=== PATIENT | female | born 1955 | race Caucasian/White ===

== ENCOUNTER → 2017-01-01 | Outpatient (CLI) | payer BC ==
[~2017-01-01] MED LIST: DEXAMETHASONE 4 MG/ML VIAL ONE; LIDOCAINE 2% 100 MG/5 ML SYR ONE; PROPOFOL/EMULSION 500 MG/50 ML BOTTLE IV ONE; fentaNYL 100 MCG/2 ML INJ ONE
== END ==
LOC: FIMAGING 08:33
DX: Z12.31 Encounter for screening mammogram for malignant neoplasm of breast (principal)
CPT/HCPCS: G0202; J1100; J2001; J2704; J3010

== ENCOUNTER 2017-11-18 11:19 | Emergency (ER) | payer BC ==
[2017-11-18 11:25] VITALS: TEMP 98.1
[2017-11-18] MEDS ORDERED: NS 1,000 ML IV ONE (11:31)
--- NOTE | 2017-11-18 11:32 | CPEKG ---
Heart Rate: 85 RR Interval: 706 P-R Interval: 168 QRSD Interval: 78 QT Interval: 376 QTC Interval: 447 P [place]: 76 QRS [place]: 21 T Wave [place]: 59 EKG Severity - BORDERLINE ECG - EKG Impression: SINUS RHYTHM EKG Impression: PROBABLE LEFT ATRIAL ABNORMALITY Electronically Signed By: Jonnathan Lei 18-Nov-2017 14:36:00
--- NOTE | 2017-11-18 11:33 | EDPHY ---
HPI/HX/ROS/PE/MDM Narrative: CHIEF COMPLAINT: Chest pain HPI: This patient is a 62 y/o female complaining of chest pain. This began suddenly 30 minutes ago. Her discomfort is severe and sharp, located at the center of her chest with radiation towards the left. It is somewhat relieved by inspiration. She has history of one episode of atrial fibrillation, for which she takes medication. She denies any other known history of heart problems. She does have history of similar pain in the past that received a full cardiac workup which was negative. She denies fever, nausea, vomiting, abdominal pain, or other associated symptoms. REVIEW OF SYSTEMS: Aside from elements discussed in the HPI, a comprehensive 10-point review of systems was reviewed and is negative. PMH: Hypothyroid. Migraines SOCIAL HISTORY: . at bedside. Lives in [place]. Retired. Daily tobacco use. PHYSICAL EXAM: General:Patient is alert, in no acute distress. ENT:Eyes are normal to inspection. ENT inspection normal. Neck: Normal inspection. Full range of motion. Respiratory:No respiratory distress. Breath sounds normal bilaterally. Cardiovascular: Regular rate and rhythm. Strong peripheral pulses. Normal cap refill. Abdomen:The abdomen is nontender to palpation. There are no peritoneal signs. There are normal bowel sounds. Back: Normal to inspection. No tenderness to palpation. Skin: Normal color. No rash. Warm and dry. Extremities: Normal appearance. Full range of motion. Neuro: Oriented x3. Normal motor function. Normal sensory function. ED Course: 62 y/o female presents with chest pain onset 30 minutes prior to arrival. Plan for EKG, chest x-ray, labs including CBC, chemistries, troponin. Plan to administer 6mg IV morphine for pain relief and 1L IV NS. EKG was ordered and interpreted by myself. Please see [employer] system for official reading. No evidence of ischemia. 1300: Patient states pain much relieved but able to reproduce pain when she presses on chest wall. MDM: This patient presents with atypical chest pain that is reproducible by palpation. We performed an extensive workup including CXR, ECG, troponin, all of which are negative for signs of ACS, PTx, PNA, TAD. Symptoms are not consistent with PE. Given the fact that her chest pain is of relatively recent onset and she has cardiac risk factors, I recommended observation admission for repeat troponin and monitoring but patient declines. We will refer to cardiology for further outpatient workup. Strict return precautions discussed with patient. - Data Points Imaging Results: Imaging Impressions Chest X-Ray 11/18/17 11:32 Impression: Chest negative for acute cardiopulmonary abnormality. Mild airways disease is suspected. Laboratory Results: Laboratory Results 11/18/17 11:31 11/18/17 11:31 11/18/17 11/18/17 11:31 11:31 WBC 8.97 10^3/uL 10^3/uL (3.80-9.50) RBC 4.76 10^6/uL 10^6/uL (4.18-5.33) Hgb 14.6 g/dL g/dL (12.6-16.3) Hct 42.8 % % (38.0-47.0) MCV 89.9 fL fL (81.5-99.8) MCH 30.7 pg pg (27.9-34.1) MCHC 34.1 g/dL g/dL (32.4-36.7) RDW 13.6 % % (11.5-15.2) Plt Count 243 10^3/uL 10^3/uL (150-400) MPV 10.0 fL fL (8.7-11.7) Neut % (Auto) 66.1 % % (39.3-74.2) Lymph % (Auto) 23.4 % % (15.0-45.0) [place] % (Auto) 6.6 % % (4.5-13.0) Eos % (Auto) 2.8 % % (0.6-7.6) Baso % (Auto) 0.7 % % (0.3-1.7) Nucleat RBC Rel Count 0.0 % % (0.0-0.2) Absolute Neuts (auto) 5.93 10^3/uL 10^3/uL (1.70-6.50) Absolute Lymphs (auto) 2.10 10^3/uL 10^3/uL (1.00-3.00) Absolute Monos (auto) 0.59 10^3/uL 10^3/uL (0.30-0.80) Absolute Eos (auto) 0.25 10^3/uL 10^3/uL (0.03-0.40) Absolute Basos (auto) 0.06 10^3/uL 10^3/uL (0.02-0.10) Absolute Nucleated RBC 0.00 10^3/uL 10^3/uL (0-0.01) Immature Gran % 0.4 % % (0.0-1.1) Immature Gran # 0.04 10^3/uL 10^3/uL (0.00-0.10) Sodium 143 mEq/L mEq/L (135-145) Potassium 4.4 mEq/L mEq/L (3.5-5.2) Chloride 103 mEq/L mEq/L (97-110) Carbon Dioxide 28 mEq/l mEq/l (22-31) Anion Gap 12 mEq/L mEq/L (8-16) BUN 23 mg/dL mg/dL (7-23) Creatinine 0.9 mg/dL mg/dL (0.6-1.0) Estimated GFR > 60 Glucose 90 mg/dL mg/dL (70-100) Calcium 9.3 mg/dL mg/dL (8.5-10.4) Troponin I < 0.012 ng/mL ng/mL (0.000-0.034) Medications Given: Discontinued Medications Al Hydroxide/Mg Hydroxide (Maalox Susp) 30 ml PO ONCE ONE Stop: 11/18/17 12:22 Last Admin: 11/18/17 12:44 Dose: 30 ml Hyoscyamine Sulfate (Levsin, Hyomax-Sl) 0.25 mg PO ONCE ONE Stop: 11/18/17 12:22 Last Admin: 11/18/17 12:44 Dose: 0.25 mg Sodium Chloride (Ns) 1,000 mls @ 0 mls/hr IV EDNOW ONE; Wide Open PRN Reason: Protocol Stop: 11/18/17 11:32 Last Admin: 11/18/17 11:41 Dose: 1,000 mls Ketorolac Tromethamine (Toradol) 30 mg IVP EDNOW ONE Stop: 11/18/17 12:47 Last Admin: 11/18/17 13:14 Dose: 30 mg Lidocaine (Lidocaine 2% Viscous) 15 ml PO ONCE ONE Stop: 11/18/17 12:22 Last Admin: 11/18/17 12:44 Dose: 15 ml Morphine Sulfate (Morphine) 6 mg IVP EDNOW ONE Stop: 11/18/17 11:33 Last Admin: 11/18/17 11:46 Dose: 6 mg Morphine Sulfate (Morphine) 6 mg IVP EDNOW ONE Stop: 11/18/17 11:43 Last Admin: 11/18/17 11:46 Dose: Not Given General Time Seen by Provider: 11/18/17 11:26 Initial Vital Signs: Initial Vital Signs Temperature (C) 36.7 C 11/18/17 11:23 Heart Rate 93 11/18/17 11:23 Respiratory Rate 22 H 11/18/17 11:23 Blood Pressure 122/65 H 11/18/17 11:23 O2 Sat (%) 94 11/18/17 11:23 O2 Delivery Mode Room Air Allergies/Adverse Reactions: dexamethasone [From Decadron] Allergy (Verified 11/18/17 11:21) dexamethasone sod phosphate [From Decadron] Allergy (Verified 11/18/17 11:21) ANTBIOTICS Allergy (Uncoded 11/18/17 11:21) Home Medications: Medication Instructions Recorded Chlordiaz/Clidiniu 5/2.5 [Librax] 0 cap PO 12/27/10 FLUOXETINE HCL 0 mg PO 12/27/10 Orphenadrine Citrate [Norflex] 0 mg PO BID 12/27/10 CELECOXIB [Celebrex] 100 mg PO DAILY 08/11/11 Amitriptyline HCl 11/18/17 Doxycycline Hyclate 11/18/17 [place] 5/325 (*) 11/18/17 Norflex 100 mg (*) 11/18/17 Synthroid 11/18/17 traMADol HCL 11/18/17 Departure - Departure Disposition: Home, Routine, Self-Care Clinical Impression: Chest wall pain Condition: Good Instructions: Chest Pain (ED), Chest Wall Pain (ED) Additional Instructions: Follow-up with your primary doctor within 2-3 days. Return to the Emergency Department for fever, chest pain, shortness of breath, increasing pain or other worsening of condition. Follow up with a ui ux developer for further testing, as soon as possible, within one week. Referrals: MASOOD RICHARDSON [Primary Care Provider] - As per Instructions Timur Duran MD [Medical Doctor] - As per Instructions Report Scribed for: Jonnathan Lei Report Scribed by: Liat Santana Date of Report: 11/18/17 Time of Report: 11:33 Physician Review and Approval Statement: Portions of this note were transcribed by an ED scribe. I personally performed the history, physical exam, and medical decision making; and confirm the accuracy of the information in the transcribed note.
[2017-11-18 11:38] LABS: PLATELET COUNT 243 10^3/uL (150-400)
[2017-11-18] MEDS ORDERED: MAG HYDROX/AL HYDROX/SIMETH 30 ML UDCUP PO ONE (12:21)
[2017-11-18] MEDS ORDERED: LIDOCAINE 2% VISCOUS 15 ML UDCUP PO ONE (12:21)
[2017-11-18] MEDS ORDERED: HYOSCYAMINE SULFATE 0.125 MG TAB PO ONE (12:21)
[2017-11-18] MEDS ORDERED: KETOROLAC 30 MG/1 ML SDV IVP ONE (12:46)
[2017-11-18 12:48] VITALS: RESP 18
[2017-11-18 13:45] VITALS: BP 125/81; PULSE 69; O2SAT 95
== END 2017-11-18 13:45 | disposition home or self-care (01) ==
DX: R07.89 Other chest pain (principal); E86.9 Volume depletion, unspecified; F17.200 Nicotine dependence, unspecified, uncomplicated
CPT/HCPCS: 96374; J1885; J2270

== ENCOUNTER 2017-12-29 23:34 | Emergency (ER) | payer OTHER ==
[2017-12-29] MEDS ORDERED: ASPIRIN 81 MG CHEWABLE TAB PO ONE (23:46)
[2017-12-29] MEDS ORDERED: NS 1,000 ML IV ONE (23:46)
[2017-12-29] MEDS ORDERED: ONDANSETRON 4 MG/2 ML VIAL IVP ONE (23:55)
[2017-12-29] MEDS ORDERED: fentaNYL 100 MCG/2 ML INJ IVP ONE (23:55)
--- NOTE | 2017-12-29 23:59 | EDPHY ---
H & P Stated Complaint: Shoulder pain, neck pain, chest pain Time Seen by Provider: 12/29/17 23:56 HPI/ROS: HPI CHIEF COMPLAINT: Left arm radicular pain HISTORY OF PRESENT ILLNESS: Patient very pleasant 62-year-old female, she has a history of fibromyalgia, obesity, and thyroid disease, additionally neuropathy migraine headaches she takes Lyrica for neuropathy and Botox for migraines, she presents emergency room stating that she has had some neck problems in the past with degenerative disc disease, and this evening around 8 o 'clock severe sharing sharp stabbing left arm pain. The pain radiates from her left lateral neck through her left scapula down her left arm. She denies any arm weakness. She denies chest pain or shortness of breath. Denies fever. Denies recent illness. Denies pleuritic pain. Denies trauma. Pain is rather severe 8/10 rather constant a comes in waves left radicular type pain. Past Medical History: Fibromyalgia, neuropathy, obesity, thyroid disease, migraine headache Past Surgical History: No recent surgery Social History: The denies daily use drugs alcohol tobacco. Family History: ROS REVIEW OF SYSTEMS: A comprehensive 10 point review of systems is otherwise negative aside from elements mentioned in the history of present illness. Exam Constitutional appears well nontoxic no acute distress, triage nursing summary reviewed, vital signs reviewed, awake/alert. Eyes normal conjunctivae and sclera, EOMI, PERRLA. HENT normal inspection, atraumatic, moist mucus membranes, no epistaxis, neck supple/ no meningismus, no raccoon eyes. Respiratory clear to auscultation bilaterally, normal breath sounds, no respiratory distress, no wheezing. Cardiovascular rate normal, regular rhythm, no murmur, no edema, distal pulses normal. Gastrointestinal soft, non-tender, no rebound, no guarding, normal bowel sounds, no distension, no pulsatile mass. Genitourinary no CVA tenderness. Musculoskeletal left upper extremity: Neurovascular intact good distal pulse, good cap refill, good produce department supervisor strength, full range of motion of the left arm however when she turns her neck and lifts her left arm she has radicular pain that radiates down the left lateral neck into her left arm., she is neurovascular intact otherwise. Good distal pulse, good cap refill, there is no midline cervical spine pain on exam step-offs or crepitus. no midline vertebral tenderness, full range of motion, no calf swelling, no tenderness of extremities, no meningismus, good pulses, neurovascularly intact. Skin pink, warm, & dry, no rash, skin atraumatic. Neurologic awake, alert and oriented x 3, AAOx3, moves all 4 extremities equally, motor intact, sensory intact, CN II-XII intact, normal cerebellar, normal vision, normal speech. Psychiatric normal mood/affect. Heme/Lymph/Immune no lymphadenopathy. Differential Diagnosis: Includes but is not limited to in a particular order cervical radiculopathy, nerve root compression, annular tear, disc herniation, compression fracture. Medical Decision Making: Plan for this patient IV establishment: IV pain control IV fentanyl for acute pain control, IV Zofran nausea, EKG, blood work, chest x-ray, left shoulder x-ray, and re-evaluate. Clinically on exam this patient most likely has cervical radiculopathy. Re-evaluation: EKG interpretation by me on record in [employer] system. Impression time of EKG 2344, sinus rhythm rate of 89, no acute ischemic change. No ST elevation or ST depression. No significant T-wave abnormalities. 0214: Patient re-evaluated resting comfortably no acute distress. Patient feels much better after IV pain control. She is relaxed. She denies chest pain or shortness of breath. Her workup here includes a normal troponin negative D-dimer. Her EKG is nonischemic. Her clinical picture is consistent with cervical radiculopathy. I do recommend she has close follow-up with primary care doctor. Her pain is well controlled here. She has no focal arm weakness she has a normal produce department supervisor strength. Sensation is intact. I do not feel that she needs emergent MRI at this time. Recommend following up with her doctor for cervical radiculopathy. Will give Decadron, and pain medicine. Source: Patient - Personal History Current Tetanus Diphtheria and Acellular Pertussis (TDAP): Yes Tetanus Vaccine Date: < 10 years - Medical/Surgical History Hx Asthma: No Hx Chronic Respiratory Disease: No Hx Diabetes: No Hx Cardiac Disease: No Hx Renal Disease: No Hx Cirrhosis: No Hx Alcoholism: No Hx HIV/AIDS: No Hx Splenectomy or Spleen Trauma: No Other PMH: FM, hypothyroid, migraines - Social History Smoking Status: Current every day smoker Constitutional: Initial Vital Signs Temperature (C) 36.5 C 12/29/17 23:37 Heart Rate 91 12/29/17 23:37 Respiratory Rate 20 12/29/17 23:37 Blood Pressure 141/96 H 12/29/17 23:37 O2 Sat (%) 95 12/29/17 23:37 O2 Delivery Mode Room Air Allergies/Adverse Reactions: dexamethasone [From Decadron] Allergy (Verified 12/29/17 23:41) dexamethasone sod phosphate [From Decadron] Allergy (Verified 12/29/17 23:41) ANTBIOTICS Allergy (Uncoded 11/18/17 11:21) Home Medications: Medication Instructions Recorded Chlordiaz/Clidiniu 5/2.5 [Librax] 0 cap PO 12/27/10 FLUOXETINE HCL 0 mg PO 12/27/10 Orphenadrine Citrate [Norflex] 0 mg PO BID 12/27/10 CELECOXIB [Celebrex] 100 mg PO DAILY 08/11/11 Amitriptyline HCl 11/18/17 Doxycycline Hyclate 11/18/17 [place] 5/325 (*) 11/18/17 Norflex 100 mg (*) 11/18/17 Synthroid 11/18/17 traMADol HCL 11/18/17 Hydrocodone/APAP 5/325 [[place] 1 - 2 tab PO Q4H PRN #10 tab 12/30/17 5/325] predniSONE 60 mg PO DAILY #15 tab 12/30/17 Medical Decision Making - Diagnostics Imaging Results: Imaging Impressions Chest X-Ray 12/29/17 23:46 Impression: 1. No active cardiopulmonary disease seen. Shoulder X-Ray 12/29/17 23:55 Impression: Normal left shoulder series. - Data Points Laboratory Results: Laboratory Results 12/29/17 23:30 12/29/17 23:30 12/29/17 12/29/17 12/29/17 23:30 23:30 23:30 WBC 6.04 10^3/uL 10^3/uL (3.80-9.50) RBC 4.35 10^6/uL 10^6/uL (4.18-5.33) Hgb 13.2 g/dL g/dL (12.6-16.3) Hct 39.0 % % (38.0-47.0) MCV 89.7 fL fL (81.5-99.8) MCH 30.3 pg pg (27.9-34.1) MCHC 33.8 g/dL g/dL (32.4-36.7) RDW 13.3 % % (11.5-15.2) Plt Count 208 10^3/uL 10^3/uL (150-400) MPV 10.4 fL fL (8.7-11.7) Neut % (Auto) 58.5 % % (39.3-74.2) Lymph % (Auto) 29.5 % % (15.0-45.0) [place] % (Auto) 7.8 % % (4.5-13.0) Eos % (Auto) 3.5 % % (0.6-7.6) Baso % (Auto) 0.5 % % (0.3-1.7) Nucleat RBC Rel Count 0.0 % % (0.0-0.2) Absolute Neuts (auto) 3.54 10^3/uL 10^3/uL (1.70-6.50) Absolute Lymphs (auto) 1.78 10^3/uL 10^3/uL (1.00-3.00) Absolute Monos (auto) 0.47 10^3/uL 10^3/uL (0.30-0.80) Absolute Eos (auto) 0.21 10^3/uL 10^3/uL (0.03-0.40) Absolute Basos (auto) 0.03 10^3/uL 10^3/uL (0.02-0.10) Absolute Nucleated RBC 0.00 10^3/uL 10^3/uL (0-0.01) Immature Gran % 0.2 % % (0.0-1.1) Immature Gran # 0.01 10^3/uL 10^3/uL (0.00-0.10) PT 12.2 SEC SEC (12.0-15.0) INR 0.88 (0.83-1.16) APTT 27.8 SEC SEC (23.0-38.0) D-Dimer 0.49 ug/mLFEU ug/mLFEU (0.00-0.50) Sodium 141 mEq/L mEq/L (135-145) Potassium 4.4 mEq/L mEq/L (3.5-5.2) Chloride 105 mEq/L mEq/L (97-110) Carbon Dioxide 23 mEq/l mEq/l (22-31) Anion Gap 13 mEq/L mEq/L (8-16) BUN 19 mg/dL mg/dL (7-23) Creatinine 0.8 mg/dL mg/dL (0.6-1.0) Estimated GFR > 60 Glucose 100 mg/dL mg/dL (70-100) Calcium 9.2 mg/dL mg/dL (8.5-10.4) Magnesium 1.9 mg/dL mg/dL (1.6-2.3) Total Bilirubin 0.4 mg/dL mg/dL (0.1-1.4) Conjugated Bilirubin 0.4 mg/dL mg/dL (0.0-0.5) Unconjugated Bilirubin 0.0 mg/dL mg/dL (0.0-1.1) AST 35 IU/L IU/L (14-46) ALT 41 IU/L IU/L (9-52) Alkaline Phosphatase 88 IU/L IU/L (38-126) Creatine Kinase 159 IU/L H IU/L (0-156) CK-MB (CK-2) Fraction 3.33 ng/mL H ng/mL (0.00-3.19) CK-MB (CK-2) % 2.1 % % (0.0-4.0) Creatine Kinase Interp NEGATIVE (NEGATIVE) Troponin I < 0.012 ng/mL ng/mL (0.000-0.034) NT-Pro-B Natriuret Pep 112 pg/mL pg/mL (0-125) Total Protein 6.4 g/dL g/dL (6.3-8.2) Albumin 3.8 g/dL g/dL (3.5-5.0) Lipase 63 IU/L IU/L (23-300) Medications Given: Discontinued Medications Fentanyl (Sublimaze) 100 mcg IVP EDNOW ONE Stop: 12/29/17 23:56 Last Admin: 12/30/17 00:07 Dose: 100 mcg Hydromorphone HCl (Dilaudid) 0.5 mg IVP EDNOW ONE Stop: 12/30/17 00:39 Last Admin: 12/30/17 00:41 Dose: 0.5 mg Sodium Chloride (Ns) 1,000 mls @ 0 mls/hr IV EDNOW ONE; Wide Open PRN Reason: Protocol Stop: 12/29/17 23:47 Last Admin: 12/30/17 00:06 Dose: 1,000 mls Ondansetron HCl (Zofran) 4 mg IVP EDNOW ONE Stop: 12/29/17 23:56 Last Admin: 12/30/17 00:06 Dose: 4 mg Departure - Departure Disposition: Home, Routine, Self-Care Clinical Impression: Cervical radiculopathy Condition: Good Instructions: Cervical Radiculopathy (ED), Neck Pain (ED) Additional Instructions: 1. Follow up with her primary care doctor. 2. Return emergency room if you have worsening pain questions or concerns. 3. [place] few having severe pain. 4. Ibuprofen for mild pain. 5. Decadron as prescribed. 6. Return emergency room if worsening symptoms follow up with her primary care doctor. Referrals: MASOOD RICHARDSON [Primary Care Provider] - As per Instructions Prescriptions: Hydrocodone/APAP 5/325 [[place] 5/325] 1 - 2 tab PO Q4H PRN #10 tab PRN Reason: Pain, Moderate predniSONE 60 mg PO DAILY #15 tab
[2017-12-30 00:06] LABS: PLATELET COUNT 208 10^3/uL (150-400)
[2017-12-30 00:18] LABS: INR 0.88 (0.83-1.16); PROTIME(PATIENT) 12.2 SEC (12.0-15.0)
[2017-12-30 00:20] LABS: CREATINE KINASE 159 IU/L (0-156)
[2017-12-30] MEDS ORDERED: HYDROmorphONE/DILAUDID 2 MG/ML INJ IVP ONE (00:38)
[2017-12-30] MEDS ORDERED: HYDROmorphONE/DILAUDID 1 MG/ML INJ ONE (00:39)
[2017-12-30 01:39] VITALS: BP 102/69
--- NOTE | 2017-12-31 15:14 | CPEKG ---
Heart Rate: 89 RR Interval: 674 P-R Interval: 168 QRSD Interval: 84 QT Interval: 364 QTC Interval: 443 P [place]: 73 QRS [place]: 5 T Wave [place]: 36 EKG Severity - NORMAL ECG - EKG Impression: SINUS RHYTHM Electronically Signed By: Elmo Castro 31-Dec-2017 16:57:16
== END 2017-12-30 02:27 | disposition home or self-care (01) ==
DX: M54.12 Radiculopathy, cervical region (principal); E86.9 Volume depletion, unspecified; F17.200 Nicotine dependence, unspecified, uncomplicated
CPT/HCPCS: 96374; J1170; J2405; J3010

== ENCOUNTER 2018-01-24 21:25 | Emergency (ER) | payer OTHER ==
--- NOTE | 2018-01-24 21:57 | EDPHY ---
H & P Stated Complaint: Fell down stairs, hit head, injured R arm. Time Seen by Provider: 01/24/18 21:56 HPI/ROS: HPI: This is a 62-year-old female who presents with Chief Complaint: Fell down stairs, hit head, injured R arm. Location: Head, posterior neck, right wrist Quality: Injury Duration: 1 hr prior to arrival Signs and Symptoms: No bleeding, no radiation, no numbness, no weakness, no tingling, no incontinence, + decreased range of motion, + swelling, + pain, no fever Timing: Acute Severity: Moderate Context: Patient reports that she was stepping up onto the stairs coming from outside into the house when she lost her balance. She denies any dizziness/ chest pain/shortness of breath. She reports that she fell backwards hitting the grass. Denies LOC/dizziness/vomiting/amnesia. She laid in the grass for a few minutes as the back of her head had moderate, constant pain accompanied by posterior neck pain that was nonradiating in nature and worsened with movement. She also is right-hand dominant in note bruising and tenderness of her right wrist. Patient was ambulatory at the scene. She is complaining of nausea but no vomiting. Reports tetanus is current. She does not take any blood thinners. Patient reports that she has fibromyalgia and they have ordered an outpatient MRI of her left knee. Modifying Factors: None Comment: ROS: see HPI Constitutional: No fever, no chills, no weight loss Eyes: No blurred vision Respiratory: No shortness of breath, no cough Cardiovascular: No chest pain Gastrointestinal: No nausea, no vomiting no diarrhea Genitourinary: No dysuria Extremities: No myalgias Neurologic: No weakness, no numbness Skin: No rashes Hematologic: No bruising, no bleeding MEDICAL/SURGICAL/SOCIAL HISTORY: Medical history: FM, hypothyroid, migraines Surgical history: Denies Social history: Former smoker. CONSTITUTIONAL: Polite and cooperative elderly white female, at bedside , awake and alert, no obvious distress HEENT: Atraumatic and normocephalic, PERRL, EOMI. no globe entrapment, no raccoon eyes. no Gr[place] signs.Tympanic membranes clear. No tympanic membrane rupture. Nares patent; no septal hematoma. Oropharynx clear, no exudate and moist pink mucosa. No malocclusion. no dental trauma. Airway patent. No lymphadenopathy. NECK: supple, + midline tenderness, decreased flexion, extension, and lateral flexion by 15 degrees secondary to pain. No meningismus. Cardiovascular: Normal S1/S2, regular rate, regular rhythm, without murmur rub or gallop. PULMONARY/CHEST: Symmetrical and nontender. no crepitus. Clear to auscultation bilaterally. Good air movement. No accessory muscle usage. ABDOMEN: Soft, nondistended, nontender, no ecchymosis, no rebound, no guarding , no peritoneal signs, no masses or organomegaly. No CVAT. PELVIC: no pain with rocking; bilateral hips flexion 125 degrees, extension 30 degrees, with no pain internal rotation and no pain external rotation. BACK: No midline tenderness, no paraspinous spasm, deep tendon reflexes 2/2, no pain with straight leg raise EXTREMITIES: 2/2 pulses, right WRIST: Extension to 70, flexion to 80, radial deviation to 20 degree, ulnar deviation to 30, no scaphoid tenderness, no tenderness over ulnar styloid, no tenderness over radial styloid, bruising over the mid wrist volar and dorsal aspects. No deformity. no clubbing, no cyanosis or edema. NEUROLOGICAL: no focal neuro deficits. GCS 15. SKIN: Warm and dry, no erythema. no rash. Good capillary refill. Source: Patient, Family, RN/MD - Personal History Current Tetanus/Diphtheria Vaccine: Yes Current Tetanus Diphtheria and Acellular Pertussis (TDAP): Yes Tetanus Vaccine Date: < 10 years - Medical/Surgical History Hx Asthma: No Hx Chronic Respiratory Disease: No Hx Diabetes: No Hx Cardiac Disease: No Hx Renal Disease: No Hx Cirrhosis: No Hx Alcoholism: No Hx HIV/AIDS: No Hx Splenectomy or Spleen Trauma: No Other PMH: FM, hypothyroid, migraines - Social History Smoking Status: Former smoker Constitutional: Initial Vital Signs Temperature (C) 36.4 C 01/24/18 21:28 Heart Rate 80 01/24/18 21:28 Respiratory Rate 18 01/24/18 21:28 Blood Pressure 128/81 H 01/24/18 21:28 O2 Sat (%) 96 01/24/18 21:28 O2 Delivery Mode Room Air Allergies/Adverse Reactions: azithromycin Allergy (Verified 01/24/18 21:34) Cephalosporins Allergy (Verified 01/24/18 21:34) ciprofloxacin [From Cipro] Allergy (Verified 01/24/18 21:34) clindamycin Allergy (Verified 01/24/18 21:34) dexamethasone [From Decadron] Allergy (Verified 12/29/17 23:41) dexamethasone sod phosphate [From Decadron] Allergy (Verified 12/29/17 23:41) Penicillins Allergy (Verified 01/24/18 21:34) Quinolones Allergy (Verified 01/24/18 21:34) Kucwrnx-Wys-Fka Reductase Inhibitor Allergy (Verified 01/24/18 21:34) ANTBIOTICS Allergy (Uncoded 11/18/17 11:21) Home Medications: Medication Instructions Recorded Orphenadrine Citrate [Norflex] 0 mg PO BID 12/27/10 CELECOXIB [Celebrex] 100 mg PO DAILY 08/11/11 Amitriptyline HCl 11/18/17 [place] 5/325 (*) 11/18/17 Norflex 100 mg (*) 11/18/17 Synthroid 11/18/17 traMADol HCL 11/18/17 Hydrocodone/APAP 5/325 [[place] 1 - 2 tab PO Q4H PRN #10 tab 12/30/17 5/325] Cyclobenzaprine [Flexeril 10 MG 10 mg PO TID PRN #15 tab 01/24/18 (*)] oxyCODONE/APAP 5/325 [Percocet 1 - 2 tab PO Q4H PRN #10 tab 01/24/18 5/325 (*)] Medical Decision Making - Diagnostics Imaging Results: Imaging Impressions Cervical Spine CT 01/24/18 22:02 Impression: There is no acute intracranial abnormality identified on this unenhanced CT evaluation. UNENHANCED CT SCAN OF THE CERVICAL SPINE Technique: A multidetector unenhanced helical CT scan was obtained from the clivus caudally through the upper thoracic spine, with images reformatted at 1.50 mm increments, and are reviewed in soft tissue, bone, and lung windows. Parasagittal and paracoronal reconstructed images are reviewed on the workstation. The DFOV is 25.0 cm. A dose reduction protocol was used. Given the history of trauma, the radiologist separately reviewed the cervical osseous images on the computer workstation in a 3D format using Sling software. Findings: The cervical vertebral body heights and the posterior alignments are preserved. As on preceding studies, there is moderate degenerative disk space narrowing at C5-C6 and C6-C7 with accompanying ventral and dorsal traction osteophytes. There is some accompanying facet hypertrophy at these levels. There is a moderate degree of central canal stenosis and mild bilateral neural foraminal stenosis. There is no acute fracture, or facet malalignment. The interspinous distances are normal. The craniocervical junction is normal. The predental space, and the atlantoaxial lateral mass alignment is normal. The base and the tip of the dens are normal. There is no focal disk herniation identified. There is no paravertebral or epidural hematoma identified. The prevertebral soft tissues are normal. There is some mild air trapping in the apices some mild right apical pleural/parenchymal fibrosis. Impression: Moderate degenerative disk disease at C5-C6 and C6-C7 with degenerative spondylosis and moderate central canal stenoses with mild bilateral neural foraminal narrowing, similar to previous studies in 2013. If there is further clinical concern regarding the patient's symptoms, correlative MR imaging could be considered, if otherwise not contraindicated. Findings were discussed with Mag Castano PA-C at 22:49, on 01/24/2018. Head CT 01/24/18 22:02 Impression: There is no acute intracranial abnormality identified on this unenhanced CT evaluation. UNENHANCED CT SCAN OF THE CERVICAL SPINE Technique: A multidetector unenhanced helical CT scan was obtained from the clivus caudally through the upper thoracic spine, with images reformatted at 1.50 mm increments, and are reviewed in soft tissue, bone, and lung windows. Parasagittal and paracoronal reconstructed images are reviewed on the workstation. The DFOV is 25.0 cm. A dose reduction protocol was used. Given the history of trauma, the radiologist separately reviewed the cervical osseous images on the computer workstation in a 3D format using Sling software. Findings: The cervical vertebral body heights and the posterior alignments are preserved. As on preceding studies, there is moderate degenerative disk space narrowing at C5-C6 and C6-C7 with accompanying ventral and dorsal traction osteophytes. There is some accompanying facet hypertrophy at these levels. There is a moderate degree of central canal stenosis and mild bilateral neural foraminal stenosis. There is no acute fracture, or facet malalignment. The interspinous distances are normal. The craniocervical junction is normal. The predental space, and the atlantoaxial lateral mass alignment is normal. The base and the tip of the dens are normal. There is no focal disk herniation identified. There is no paravertebral or epidural hematoma identified. The prevertebral soft tissues are normal. There is some mild air trapping in the apices some mild right apical pleural/parenchymal fibrosis. Impression: Moderate degenerative disk disease at C5-C6 and C6-C7 with degenerative spondylosis and moderate central canal stenoses with mild bilateral neural foraminal narrowing, similar to previous studies in 2013. If there is further clinical concern regarding the patient's symptoms, correlative MR imaging could be considered, if otherwise not contraindicated. Findings were discussed with Mag Castano PA-C at 22:49, on 01/24/2018. Wrist X-Ray 01/24/18 22:02 Impression: There is no acute abnormality identified. If there is further clinical concern regarding an occult fracture, conservative management and short-term repeat radiographic follow-up in 7-14 days is suggested. Procedures: Procedure: Splint placement. A right Velcro wrist splint was applied by the Emergency Room television production technician. After application of the splint I returned and re-examined the patient. The splint was adequately immobilizing the joint and distal to the splint the patient's circulation and sensation was intact. ED Course/Re-evaluation: Cervical CT scan ordered based on NEXUS Cervical Spine Rule: Positive midline spinal tenderness. Placed in [place] cervical collar. Head CT ordered based on [place] CT head due to age. Right wrist x-ray, Percocet x2 and Zofran 4 mg ordered Fall is mechanical in nature Called by radiologist who advised that head CT scan shows no acute intracranial process. Cervical CT scan shows no acute fracture. C5-C7 degenerative disc disease with moderate central canal stenosis is stable. Right wrist x-ray my read shows no fracture/dislocation. Placed in right Velcro wrist splint for comfort. Patient requesting RX for pain medications and muscle relaxer, Flexeril. This patient was seen under the supervision of my secondary supervising physician. I evaluated care for this patient independently. Discussed this patient with Dr. Mason who did not see the patient. Differential Diagnosis: Head injury including but not limited to concussion, skull fracture, intraparenchymal contusion, subarachnoid, subdural and epidural hematoma. - Data Points Medications Given: Discontinued Medications Ondansetron HCl (Zofran Odt) 4 mg PO EDNOW ONE Stop: 01/24/18 22:03 Last Admin: 01/24/18 22:10 Dose: 4 mg Oxycodone/Acetaminophen (Percocet 5/325) 2 tab PO EDNOW ONE Stop: 01/24/18 22:03 Last Admin: 01/24/18 22:10 Dose: 2 tab Departure - Departure Disposition: Home, Routine, Self-Care Clinical Impression: Degenerative disc disease, cervical, Central stenosis of spinal canal Scalp contusion Qualifiers: Encounter type: initial encounter Qualified Code(s): S00.03XA - Contusion of scalp, initial encounter Cervical strain Qualifiers: Encounter type: initial encounter Qualified Code(s): S16.1XXA - Strain of muscle, fascia and tendon at neck level, initial encounter Right wrist sprain Qualifiers: Encounter type: initial encounter Qualified Code(s): S63.501A - Unspecified sprain of right wrist, initial encounter Condition: Good Instructions: Scalp Contusion in Adults (ED), Wrist Sprain (ED), Degenerative Disc Disease (ED) Additional Instructions: Wear the splint on your right wrist until pain free. Take Tylenol 650 mg every 4 hours and/or Ibuprofen 600 mg every 8 hours with food as needed for pain. Use Percocet every 6 hours as needed for severe/break through pain. Do not use Tylenol and Percocet concomitantly. Use Flexeril every 8 hr as needed for muscle relaxer. Apply ice to the back of your scalp and wrist for 30 minutes at a time; 2-3 times per day for the next 1-2 days. Follow up with PCP in 5-7 days if symptoms persist at which time they will evaluate and recommend with you if conservative management versus further imaging is indicated. The x-rays obtained in the emergency department today demonstrate no evidence of an obvious fracture. Sometimes fractures are not obvious on the initial set of x-rays performed in the ED. For this reason, you should have repeat x-rays performed in 7-10 days if you are having any pain exclude the possibility of an occult fracture. Referrals: MASOOD RICHARDSON [Primary Care Provider] - As per Instructions Prescriptions: Cyclobenzaprine [Flexeril 10 MG (*)] 10 mg PO TID PRN #15 tab PRN Reason: Spasms oxyCODONE/APAP 5/325 [Percocet 5/325 (*)] 1 - 2 tab PO Q4H PRN #10 tab PRN Reason: Pain, Severe
[2018-01-24] MEDS ORDERED: OXYCODONE/APAP 5/325 TAB PO ONE (22:02)
[2018-01-24] MEDS ORDERED: ONDANSETRON DISINTEGRATING 4 MG TAB PO ONE (22:02)
[2018-01-24 23:18] VITALS: BP 138/70
== END 2018-01-24 23:17 | disposition home or self-care (01) ==
DX: S16.1XXA Strain of muscle, fascia and tendon at neck level, initial encounter (principal); S00.03XA Contusion of scalp, initial encounter; S63.501A Unspecified sprain of right wrist, initial encounter; M50.30 Other cervical disc degeneration, unspecified cervical region; M48.00 Spinal stenosis, site unspecified; Z87.891 Personal history of nicotine dependence; W10.8XXA Fall (on) (from) other stairs and steps, initial encounter; Y99.8 Other external cause status
CPT/HCPCS: L0172; L3908

== ENCOUNTER → 2018-01-29 | Outpatient (CLI) | payer OTHER | LOC: FIMAGING 14:00 | PROVIDERS: ATTEND Family Medicine | DX: Z12.31 Encounter for screening mammogram for malignant neoplasm of breast (principal) ==

== ENCOUNTER → 2018-02-18 | Outpatient (CLI) | payer OTHER | LOC: FIMAGING 13:16 | PROVIDERS: ATTEND Family Medicine | DX: R92.0 Mammographic microcalcification found on diagnostic imaging of breast (principal) ==

== ENCOUNTER → 2018-03-04 | Day surgery (SDC) | payer OTHER ==
[~2018-03-04] MED LIST changes: +BUPIVACAINE 0.5% 10 ML SDV ONE; -DEXAMETHASONE 4 MG/ML VIAL ONE; +LIDOCAINE 1% 300 MG/30 ML SDV ONE; -LIDOCAINE 2% 100 MG/5 ML SYR ONE; -PROPOFOL/EMULSION 500 MG/50 ML BOTTLE IV ONE; +THROMBIN (BOVINE) 5,000 UNIT VIAL TP ONE; -fentaNYL 100 MCG/2 ML INJ ONE
--- NOTE | 2018-03-27 17:07 | GHP ---
[f rep st] PREOP HISTORY AND PHYSICAL DATE OF ADMISSION: 03/04/2018 HISTORY OF PRESENT ILLNESS: The patient is a 62-year-old female who is admitted at this time for nee dle localization and lumpectomy for left breast biopsy which revealed ductal carcinoma in situ, is es trogen positive, grade 2. Risks and options have been fully discussed and she wishes to proceed with excision. MRI of her breast reveals no other major lesions except related to the small hematoma fro m the biopsy on the left side. She has no family history of breast cancer and she is taking no hormo laurie currently. PRESENT MEDICATIONS: Synthroid, Prozac, Lyrica, Celebrex, Elavil, Norflex, tramadol and [place]. ALLERGIES: Include quinolones, Cipro, statin, penicillin, Decadron, clindamycin, cephalosporins, Zit hromax. FAMILY HISTORY: Positive for Alzheimer's, Parkinson's and bladder cancer. REVIEW OF SYSTEMS: She has complex migraines but no other major findings on a full 10-point review o f systems. She does have some neck pain as well. SOCIAL HISTORY: She is a nonsmoker. PHYSICAL EXAMINATION: GENERAL: An alert 62-year-old female in no acute distress. HEAD AND NECK: N o icterus, adenopathy or oral lesions. Pupils are normal. Neck is supple, nontender, without masses . CHEST: Clear and symmetric. CARDIAC: Regular rhythm. ABDOMEN: Soft and nontender, without mas ses, organomegaly or bruits. EXTREMITIES: Benign with full pulses, full range of motion. NEUROLOGI C: Physiologic and symmetric. PSYCH: Reveals her to be alert, oriented and cooperative. BREASTS: A recent left biopsy site. There are no other masses. No nipple discharge or skin dimpling and no palpable adenopathy. IMPRESSION: Ductal carcinoma in situ of the left breast. PLAN: Admit for needle localization, lumpectomy. There is no evidence of metastatic disease or shalom l involvement at this point. Risks and options have been fully discussed and she wished to proceed. /[id number]/MODL
== END | disposition home or self-care (01) ==
LOC: FIMAGING 07:25
PROVIDERS: ATTEND Nurse Practitioner Family
PROC: 0HBU3ZX Excision of Left Breast, Percutaneous Approach, Diagnostic (ICD-10-PCS; principal; 2018-03-04)
DX: D05.12 Intraductal carcinoma in situ of left breast (principal)

== ENCOUNTER → 2018-03-13 | Outpatient (CLI) | payer BC ==
[~2018-03-13] MED LIST changes: -BUPIVACAINE 0.5% 10 ML SDV ONE; +GADOBUTROL 10 ML VIAL IVP ONE; -LIDOCAINE 1% 300 MG/30 ML SDV ONE; -THROMBIN (BOVINE) 5,000 UNIT VIAL TP ONE
== END ==
LOC: FIMAGING 13:49
PROVIDERS: ATTEND Surgery
DX: D05.12 Intraductal carcinoma in situ of left breast (principal)
CPT/HCPCS: 0159T; 77059; A9585; C8908

== ENCOUNTER 2018-06-21 07:20 | Observation (INO) | payer BC ==
--- NOTE | 2018-06-19 12:31 | GHP ---
DATE OF ADMISSION: 06/21/2018 DATE OF SURGERY: 06/21/2018 CHIEF COMPLAINT: Breast cancer. HISTORY OF PRESENT ILLNESS: This is a 62-year-old female with a history of DCIS who underwent a left breast lumpectomy on 04/01/2018. Her pathology report revealed clear margins; however, the closest lateral margin was less than 1 mm. The patient opted to undergo re-excision. 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 She has opted to undergo bilateral mastectomies for this. PAST MEDICAL HISTORY: Breast cancer, migraine, chronic pain, as well as history of stroke. PAST SURGICAL HISTORY: Left breast lumpectomy. FAMILY MEDICAL HISTORY: There is a history of ovarian cancer in her sister, as well as bladder cancer in her mother. MEDICATIONS: Amitriptyline 50 mg, Celebrex 200 mg, Lyrica 100 mg, [place] 5/325 mg, orphenadrine tartrate 100 mg, Prozac 20 mg, Synthroid 125 mcg, tramadol 50 mg, Xanax 0.5 mg. ALLERGY: Azithromycin, cephalexin, Cipro, clindamycin, dexamethasone, penicillins, quinolones, and statins. SOCIAL HISTORY: She is a nonsmoker and does not consume alcohol. PHYSICAL EXAM: GENERAL: Well appearing, well dressed 62-year-old female in no acute distress HEENT: Pupils equal and round, normocephalic, atraumatic, no gross hearing deficits, mucous membranes moist CARDIAC: Regular rate and rhythm , no clicks murmurs or rubs RESPIRATORY: Clear to auscultation bilaterally, no increased work of breathing BREASTS: Left breast incision appears clean, dry, and intact. 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 She has thus opted to undergo bilateral mastectomies. All risks and options have been discussed. Risks of surgery include, but are not limited to infection, bleeding, hematoma, recurrence, heart attack, and . Patient understands and wishes to proceed. /[id number]/MODL MTDD
[~2018-06-21 07:20] MED LIST changes: -GADOBUTROL 10 ML VIAL IVP ONE; +VANCOMYCIN HCL/NORMAL SALINE 250 ML IV ONE
--- NOTE | 2018-06-21 09:30 | PDHPUP ---
History & Physical Update H&P update statement: This history and physical update is based on an assessment of the patient which was completed after admission or registration (within 24 hours), but prior to the surgery/procedure. H&P update: H&P reviewed & patient examined, no change in patient's condition since H&P completed
--- NOTE | 2018-06-21 11:29 | PDANEPAE ---
ANE History of Present Illness Mastectomy w tissue expanders ANE Past Medical History - Cardiovascular History Hx Hypertension: No Hx Arrhythmias: Yes Hx Chest Pain: No Hx Coronary Artery / Peripheral Vascular Disease: No Hx CHF / Valvular Disease: No Hx Palpitations: No Cardiovascular History Comment: states had episode of Afib about 6 years ago but was due to interaction with a medication, no episodes stopping med - Pulmonary History Hx COPD: No Hx Asthma/Reactive Airway Disease: Yes Hx Recent Upper Respiratory Infection: No Hx Oxygen in Use at Home: No Hx Sleep Apnea: No Sleep Apnea Screening Result - Last Documented: Positive Pulmonary History Comment: exercise induced asthma, uses MDI PRN. YANNA Positive , uses Cpap - Neurologic History Hx Cerebrovascular Accident: Yes Hx Seizures: No Hx Dementia: No Neurologic History Comment: benign lesion on right side of brain. Had COMPLEX MIGRAINE EPISODE 5 YRS AGO, was admitted to ICU for it because of narrowing of blood vessel that caused it, has residual right sided weakness from it. No episodes since - Endocrine History Hx Diabetes: No Endocrine History Comment: HYPOTHYROID - Renal History Hx Renal Disorders: Yes Renal History Comment: HX PAST KIDNEY STONES - Liver History Hx Hepatic Disorders: No - Neurological & Psychiatric Hx Hx Neurological and Psychiatric Disorders: Yes Neurological / Psychiatric History Comment: ANXIETY/DEPRESSION - PROZAC/XANAX - Cancer History Hx Cancer: Yes Cancer History Comment: L BREAST - Congenital Disorder History Hx Congenital Disorders: No - GI History Hx Gastrointestinal Disorders: Yes Gastrointestinal History Comment: reflux - Other Health History Other Health History: wears glasses. FIBROMYALGIA. gets steroid injections in low back - has narrowing of the nerve roots, stenosis from cervical to low lumbar. doing bialteral mastectomies based on genetic testing. scalp eczema - Chronic Pain History Chronic Pain: Yes (GENERALIZED PAIN W/FIBROMYALGIA, back pain) - Surgical History Prior Surgeries: left breast lumpectomy w/reincision 1 week later. APPENDECTOMY. TONSILLECTOMY. . R BREAST LUMPECTOMY ANE Review of Systems Review of Systems: - Exercise capacity Exercise capacity: >=4 METS ANE Patient History - Allergies Allergies/Adverse Reactions: azithromycin Allergy (Verified 06/12/18 12:00) Vomiting ciprofloxacin [From Cipro] Allergy (Verified 06/12/18 12:00) Vomiting clindamycin Allergy (Verified 06/12/18 12:00) caused C DIFF x 2 dexamethasone [From Decadron] Allergy (Verified 06/12/18 12:00) Itching & swelling dexamethasone sod phosphate [From Decadron] Allergy (Verified 06/12/18 12:00) itching & swelling Macrolide Antibiotics Allergy (Verified 06/12/18 12:00) Vomiting Penicillins Allergy (Verified 06/12/18 12:00) Vomiting Quinolones Allergy (Verified 06/12/18 12:00) Vomiting Ofwthbl-[place]al-[place] Reductase Inhibitor Allergy (Verified 06/12/18 12:00) muscle pain & weakness - Home Medications Home Medications: ALPRAZolam [Xanax 0.5 MG (*)] 0.5 mg PO BID PRN 06/12/18 [Last Taken Unknown] Albuterol [Proventil Inhaler HFA (*)] 1 - 2 puffs IH Q4H PRN 06/12/18 [Last Taken Unknown] Amitriptyline HCl [Elavil 50 mg (*)] 50 mg PO HS 06/12/18 [Last Taken 06/20/18] Cholecalciferol Vit D3 [Vitamin D3 (*)] 1,000 units PO DAILY 06/12/18 [Last Taken 06/14/18] Cyanocobalamin [Vitamin B12 (*)] 100 mcg PO DAILY 06/12/18 [Last Taken 06/14/18] Esomeprazole Magnesium [Nexium 24Hr] 20 mg PO DAILY 06/12/18 [Last Taken ] FLUoxetine [Prozac 20 MG (*)] 20 mg PO DAILY 06/12/18 [Last Taken 06/21/18] Guar Gum [Benefiber/Nutrisource Fiber (*)] 1 each PO DAILY 06/12/18 [Last Taken 06/14/18] Herbals/Supplements -Info Only 1 ea PO DAILY 06/12/18 [Last Taken 06/14/18] Hydrocodone/Acetaminophen [[place] 5/325 (*)] 1 each PO Q4 PRN 06/12/18 [Last Taken 06/20/18] Levothyroxine [Synthroid 50 mcg (*)] 50 mcg PO DAILY06 06/12/18 [Last Taken 10/07] Lidocaine [Lidoderm] 1 each TP DAILY PRN 06/12/18 [Last Taken 06/14/18] Orphenadrine Citrate [Norflex 100 mg (*)] 100 mg PO HS 06/12/18 [Last Taken ] Orphenadrine Citrate [Norflex 100 mg (*)] 100 mg PO HS 06/12/18 [Last Taken 09/06] Phentermine HCl [Lomaira] 8 mg PO BID 06/12/18 [Last Taken 06/20/18] Pregabalin [Lyrica 100mg (*)] 100 mg PO BID 06/12/18 [Last Taken 06/21/18] traMADol [Ultram 50 mg (*)] 50 mg PO Q4 PRN 06/12/18 [Last Taken Unknown] celeCOXIB [Celebrex (*)] 200 mg PO DAILY 06/21/18 [Last Taken 06/14/18] - NPO status NPO Status: no food or drink >8 hours NPO Since - Liquids (Date): 06/21/18 NPO Since - Liquids (Time): 06:30 NPO Since - Solids (Date): 06/20/18 NPO Since - Solids (Time): 18:30 - Anes Hx Anes Hx: no prior problems - Smoking Hx Smoking Status: Former smoker - Alcohol Use Alcohol Use: Rarely - Family Anes Hx Family Anes Hx: none Family Hx Anesthesia Complications: none ANE Labs/Vital Signs - Vital Signs Blood Pressure: 132/79 Heart Rate: 76 Respiratory Rate: 16 O2 Sat (%): 92 Height: 176.53 cm Weight: 72.121 kg ANE Physical Exam - Airway Neck exam: FROM Mallampati Score: Class 3 Mouth exam: normal dental/mouth exam - Pulmonary Pulmonary: no respiratory distress, clear to auscultation - Cardiovascular Cardiovascular: regular rate and rhythym, no murmur, rub, or gallop - ASA Status ASA Status: III
[2018-06-21] MEDS ORDERED: MIDAZOLAM 2 MG/2 ML VIAL IVP ONE (11:33)
[2018-06-21] MEDS ORDERED: PROPOFOL 200 MG/20 ML VIAL ONE (11:53)
[2018-06-21] MEDS ORDERED: fentaNYL 100 MCG/2 ML INJ ONE ×2 (11:53→16:07)
[2018-06-21] MEDS: VANCOMYCIN PHARMACY TO DOSE MISC ONE (11:54)
[2018-06-21] MEDS ORDERED: PROPOFOL/EMULSION 500 MG/50 ML BOTTLE IV ONE ×4 (12:26→14:51)
[2018-06-21] MEDS ORDERED: LIDOCAINE 2% 100 MG/5 ML SYR ONE (12:30)
[2018-06-21] MEDS ORDERED: ROCURONIUM 50 MG/5 ML VIAL ONE ×2 (12:30)
[2018-06-21] MEDS ORDERED: METHYLENE BLUE 0.5% 50 MG/10 ML AMP ONE ×2 (13:44→14:17)
[2018-06-21] MEDS ORDERED: NON-FORMULARY NEW DRUG (Lidocaine [Lidoderm] 1 EACH) TP PRN (15:38)
[2018-06-21] MEDS ORDERED: ALBUTEROL 60 PUFFS/8 GM MDI IH PRN (15:38)
[2018-06-21] MEDS ORDERED: ALPRAZolam 0.5 MG TAB PO PRN (15:38)
[2018-06-21] MEDS ORDERED: NALOXONE HCL 0.4 MG/ML INJ IVP PRN ×2 (15:38→16:07)
[2018-06-21] MEDS ORDERED: HYDROmorphONE/DILAUDID 2 MG/ML INJ ONE ×2 (15:44→17:13)
[2018-06-21] MEDS ORDERED: ONDANSETRON DISINTEGRATING 4 MG TAB PO PRN (15:48)
--- NOTE | 2018-06-21 15:52 | POSTOPPROG ---
Post Op Note Date of Operation: 06/21/18 Surgeon: Miles Patino Senior Director: Augustine Anesthesiologist: Geovanna Anesthesia: GET(General Endotracheal) Pre-op Diagnosis: Breast cancer Post-op Diagnosis: same Indication: SUSHMA gene mutation Procedure: Bilateral mastectomies, bilat. SN dissection, reconstruction Findings: Negative sentinel nodes Inf/Abcess present in the surg proc area at time of surgery?: No Depth: Deep Incisional (Fascial) EBL: 100-500 Drains: Hector Sewell Specimen(s): Left Breast Right Breast Left sentinel node Right sentinel node
--- NOTE | 2018-06-21 16:02 | POSTOPPROG ---
Post Op Note Date of Operation: 06/21/18 Surgeon: Thony Freedman Handle Machine Operator: Aram LONGORIA Anesthesia: GET(General Endotracheal) Pre-op Diagnosis: Left breast cancer Post-op Diagnosis: Left breast cancer Indication: Bilateral mastectomies Procedure: Bilateral TE recon Inf/Abcess present in the surg proc area at time of surgery?: No EBL: Minimal (40cc) Total fluids administered: 2000cc Complications: none Drains: Hector Sewell Specimen(s): left mastectomy skin
[2018-06-21] MEDS ORDERED: ACETAMINOPHEN 500 MG TAB PO PRN (16:07)
[2018-06-21] MEDS ORDERED: ONDANSETRON 4 MG/2 ML VIAL IVP PRN (16:07)
[2018-06-21] MEDS ORDERED: PROMETHAZINE HCL 25 MG/ML INJ IVP PRN (16:07)
[2018-06-21] MEDS ORDERED: HYDROCODONE/APAP 5/325 TAB PO PRN (16:07)
[2018-06-21] MEDS ORDERED: oxyCODONE IR 5 MG TAB PO PRN (16:07)
[2018-06-21] MEDS: fentaNYL 100 MCG/2 ML INJ IVP PRN ×2 (16:09→16:29)
--- NOTE | 2018-06-21 16:10 | POSTANESTH ---
Post Anesthetic Evaluation Cardiovascular Status: Normal, Stable, Similar to Pre-Op Cond Respiratory Status: Normal, Stable, Similar to Pre-op Cond. Level of Consciousness/Mental Status: Can Participate in Eval, Alert and Oriented Pain Control: Adequate, Prn Tx Ordered Nausea/Vomiting Control: Adequate, Prn Tx Ordered Complications Possibly Related to Anesthesia: None Noted
[2018-06-21] MEDS ORDERED: DIAZEPAM 5 MG/ML 1 ML SYR ONE (16:27)
[2018-06-21] MEDS: DIAZEPAM 5 MG/ML 1 ML SYR IVP PRN ×2 (16:28→16:48)
[2018-06-21] MEDS ORDERED: oxyCODONE IR 5 MG TAB ONE (16:45)
[2018-06-21] MEDS: HYDROmorphONE/DILAUDID 2 MG/ML INJ IVP PRN ×3 (17:15→18:06)
[2018-06-21] MEDS: HYDROmorphONE/DILAUDID 6 MG/30 ML PCA IV PRN (18:15)
[2018-06-21] MEDS: NS W/ 20 KCl/L 1,000 ML IV SCH (18:23)
--- NOTE | 2018-06-21 18:25 | GOP ---
DATE OF OPERATION: 06/21/2018 SURGEON: Thony Freedman MD ADULT CARE MANAGER: Aram Cintron, certified family mediator. ANESTHESIA: General endotracheal. PREOPERATIVE DIAGNOSIS: Left breast cancer. POSTOPERATIVE DIAGNOSIS: Left breast cancer. PROCEDURE PERFORMED: 1. Bilateral tissue bilingual research interviewer placement for breast reconstruction. 2. AlloDerm placement. FINDINGS: Bilateral mastectomies. SPECIMENS: Left mastectomy skin. ESTIMATED BLOOD LOSS: For my part of the case was 40 cc. INDICATIONS: The patient is a pleasant 62-year-old female with previous left breast cancer. This is a recurrent on the left breast cancer side. She therefore elected for bilateral mastectomies and im mediate reconstruction with tissue expanders and AlloDerm. DESCRIPTION OF PROCEDURE: The patient was previously met in my office, where the consent was obtaine d. Risks and benefits were discussed with her at length, which include infection, bleeding, hematoma , seroma, mastectomy skin flap necrosis, partial paresthesias and total paresthesias, asymmetries and need for further revision surgeries. She agreed upon this and signed the operative consent. Prior to going back to the operating room ivey were made for the midline as well as inframammary for the r econstruction as well as the elliptical incisions around the nipples for the mastectomy part of the i ncision. Once in the operating room, a time-out was performed, where all in the room agreed upon the site and the procedure to be performed. She got 1 g of vancomycin for IV antibiotic prophylaxis. A Sheridan was placed for urinary monitoring throughout the case and SCDs were placed for DVT prophylaxis . Dr. Miles Patino will be dictating the bilateral mastectomies. We began our part of the procedur e on the right side. The identical procedures were performed on each side. We began by identifying the lateral border of the pectoralis major muscle. This was lifted off with electrocautery and any a nd all intercostal perforators were coagulated with electrocautery. We developed a subpectoral pocke t both medially, superiorly, and leaving a cuff of muscle tissue along the pectoralis major and minor muscle as a veil for the subpectoral pocket where we attach the AlloDerm. Once this was done, we me asured the base width to be about 14 cm. We therefore chose a 133 MX-14-T tissue bilingual research interviewer for both t he right and left reconstructions. This was taken out in a closed sterile fashion and all the air wa s also taken out in a closed sterile fashion, and then this was allowed to soak in an antibiotic sali ne. We then took a 12 x 22.2 cm thick piece of AlloDerm, and this was contoured for the subpectoral placement at the completion of the pocket. This was cut with sharp Zavala scissors and placed within t he inframammary fold as well as the lateral aspect of the axilla with running 2-0 Vicryl sutures. No w that the bilingual research interviewer had been prepared, we then placed this within the subpectoral pocket and correct orientation was confirmed and the suture tabs were sutured down to the chest wall with 2-0 PDS suture s. The subpectoral pocket was then completely closed by taking the superior border of the AlloDerm a nd suturing this to the inferior border of the pectoralis major muscle with a running 2-0 Vicryl sutu re. Two ENEIDA drains were placed, 1 in the IMF and 1 in the axilla, and this was sutured to the skin wa ll with 2-0 silk sutures. The pocket was then tailor tacked closed, and because she had a lot of red undant skin tissue, this was excised sharply with a 10 blade, and on the left side, since this was th e cancer side, this was sent off for specimen. The left side was done in the same fashion. Another 12 x 20 piece of AlloDerm was used for the subpectoral pocket and a 133 MX-14-T bilingual research interviewer was used. C losure on both sides was done complexly first with subcutaneous with interrupted 3-0 Vicryl suture, a subdermal 3-0 Monocryl suture, and skin maranda. We then filled each bilingual research interviewer in a closed sterile f ashion with methylene blue infused sterile saline. This was done with 300 cc per side. The wounds w ere then dressed with Xeroform fluffs and a surgical bra and Mepilex Ag dressings were placed along t he dressing sites. Surgical support bra was placed. There were no complications. She was awoken an d taken to PACU in good condition. The count was correct at the end of the case. The expanders, the right side was a 133 MX-14-T, fill was 300/600 cc, serial #[id number]. The left tissue bilingual research interviewer was 13 3 MX-14-T, fill was 300/600 cc, serial number was [id number]. IV FLUIDS: 2 L. URINE OUTPUT: 400. COMPLICATIONS: None. /[id number]/MODL
[2018-06-21] MEDS ORDERED: PREGABALIN 100 MG CAP PO SCH (21:00)
[2018-06-21] MEDS: PREGABALIN 50 MG CAP PO SCH (21:31)
[2018-06-21] MEDS: HYDROCODONE/APAP 5/325 TAB PO PRN (21:32)
[2018-06-21] MEDS: ORPHENADRINE CITRATE 100 MG EXT REL TAB PO SCH (21:32)
[2018-06-21] MEDS: AMITRIPTYLINE HCL 50 MG TAB PO SCH (21:32)
[2018-06-22] MEDS: ALPRAZolam 1 MG TAB PO PRN ×3 (00:24→19:11)
[2018-06-22] MEDS ORDERED: LIDOCAINE 4%/MENTHOL 1% PATCH TD PRN (00:30)
[2018-06-22] MEDS: HYDROCODONE/APAP 5/325 TAB PO PRN ×4 (05:56→20:24)
[2018-06-22] MEDS: LEVOTHYROXINE 50 MCG TAB PO SCH (05:56)
[2018-06-22] MEDS: NS W/ 20 KCl/L 1,000 ML IV SCH (07:33)
[2018-06-22] MEDS: PANTOPRAZOLE SODIUM 40 MG TAB PO SCH (09:33)
[2018-06-22] MEDS: BENEFIBER/NUTRISOURCE FIBER PKT 1 EACH PO SCH (09:33)
[2018-06-22] MEDS: FLUoxetine 20 MG CAP PO SCH (09:33)
[2018-06-22] MEDS: PREGABALIN 50 MG CAP PO SCH ×2 (09:33→20:24)
--- NOTE | 2018-06-22 14:18 | SOAPPROG ---
SOAP Progress Note Assessment/Plan: Assessment: POD # 1 s/p bilateral mastectomies with reconstruction Overall doing well complains of muscle tightness laterally will add valium Home tomorrow with raghav lopez S: Discomfort but overall doing well O: Sitting up in bed, appears well CTAB RRR Incisions cdi JPs with serosanguinous fluid Plan: 06/22/18 14:13 Objective: Vital Signs Temp Pulse Resp BP Pulse Ox 36.4 C 78 16 112/82 H 91 L 06/22/18 11:53 06/22/18 11:53 06/22/18 11:53 06/22/18 11:53 06/22/18 11:53 06/21/18 06/22/18 06/23/18 05:59 05:59 04:59 Intake Total 3204 Output Total 1871 1065 Balance 1333 -1065 ICD10 Worksheet Patient Problems: Problems Problem Status Onset Breast cancer Acute - ICD10 Problem Qualifiers (1) Breast cancer
[2018-06-22] MEDS: DIAZEPAM 5 MG TAB PO PRN ×2 (15:02→21:59)
[2018-06-22] MEDS: PATCH REMOVAL 1 EA PATCH TD SCH (15:03)
--- NOTE | 2018-06-22 17:23 | ASMTCMCOM ---
CM Note CM Note Notes: Reviewed chart, pt admitted for a scheduled bilateral mastectomy. She lives at home with her , anticipate she will be independent. She has been up walking in hallways but PT eval pending. DC Plan: Independent Date Signed: 06/22/2018 05:23 PM Electronically Signed By:Lora Lee RN
[2018-06-22] MEDS: AMITRIPTYLINE HCL 50 MG TAB PO SCH (20:24)
[2018-06-22] MEDS: ORPHENADRINE CITRATE 100 MG EXT REL TAB PO SCH (20:24)
[2018-06-23] MEDS: HYDROCODONE/APAP 5/325 TAB PO PRN ×5 (04:53→21:34)
[2018-06-23] MEDS: LEVOTHYROXINE 50 MCG TAB PO SCH (04:53)
[2018-06-23] MEDS: DIAZEPAM 5 MG TAB PO PRN ×3 (04:53→20:54)
[2018-06-23] MEDS: HYDROmorphONE/DILAUDID 6 MG/30 ML PCA IV PRN (05:14)
--- NOTE | 2018-06-23 06:17 | SOAPPROG ---
SOAP Progress Note Assessment/Plan: Assessment: POD # 2 s/p bilateral mastectomies with reconstruction Feels more discomfort today and weak PT Home tomorrow with drain care Will dc steel chipper. Increase Mcintire, added home tramadol. Needs abx for drains with implants S: Discomfort but overall doing well O: Sitting up in bed, appears worried but going to walk with PT CTAB RRR Incisions cdi JPs with serosanguinous fluid Plan: 06/22/18 14:13 06/23/18 06:17 06/23/18 10:06 Objective: Vital Signs Temp Pulse Resp BP Pulse Ox 36.6 C 89 18 140/87 H 94 06/23/18 04:42 06/23/18 04:42 06/23/18 04:42 06/23/18 04:42 06/23/18 04:42 06/22/18 06/23/18 06/24/18 06:59 05:59 05:59 Intake Total 825 Output Total Balance 825 ICD10 Worksheet Patient Problems: Problems Problem Status Onset Breast cancer Acute - ICD10 Problem Qualifiers (1) Breast cancer
[2018-06-23] MEDS: BENEFIBER/NUTRISOURCE FIBER PKT 1 EACH PO SCH (08:05)
[2018-06-23] MEDS: PREGABALIN 50 MG CAP PO SCH ×2 (08:05→20:54)
[2018-06-23] MEDS: FLUoxetine 20 MG CAP PO SCH (08:06)
[2018-06-23] MEDS: PANTOPRAZOLE SODIUM 40 MG TAB PO SCH (08:06)
[2018-06-23] MEDS: PATCH REMOVAL 1 EA PATCH TD SCH (08:10)
[2018-06-23] MEDS: NS W/ 20 KCl/L 1,000 ML IV SCH (10:53)
[2018-06-23] MEDS: CEPHALEXIN 500 MG CAP PO SCH ×3 (12:29→23:00)
[2018-06-23] MEDS: traMADol 50 MG TAB PO PRN ×2 (16:46→20:54)
[2018-06-23] MEDS: ORPHENADRINE CITRATE 100 MG EXT REL TAB PO SCH (20:55)
[2018-06-23] MEDS: AMITRIPTYLINE HCL 50 MG TAB PO SCH (20:55)
[2018-06-24] MEDS: HYDROCODONE/APAP 5/325 TAB PO PRN ×4 (05:55→22:42)
[2018-06-24] MEDS: LEVOTHYROXINE 50 MCG TAB PO SCH (05:56)
[2018-06-24] MEDS: CEPHALEXIN 500 MG CAP PO SCH ×3 (05:56→18:05)
[2018-06-24] MEDS: DIAZEPAM 5 MG TAB PO PRN ×3 (05:56→18:46)
[2018-06-24] MEDS: BENEFIBER/NUTRISOURCE FIBER PKT 1 EACH PO SCH ×2 (08:48→08:59)
[2018-06-24] MEDS: PANTOPRAZOLE SODIUM 40 MG TAB PO SCH (08:48)
[2018-06-24] MEDS: PREGABALIN 50 MG CAP PO SCH ×2 (08:49→22:40)
[2018-06-24] MEDS: FLUoxetine 20 MG CAP PO SCH (08:49)
[2018-06-24] MEDS ORDERED: LACTULOSE 20 GM/30 ML UDCUP PO PRN (09:10)
[2018-06-24] MEDS ORDERED: BISACODYL 10 MG SUPP PR PRN (09:10)
[2018-06-24] MEDS ORDERED: MAGNESIUM HYDROXIDE 30 ML UDCUP PO PRN (09:10)
[2018-06-24] MEDS ORDERED: POLYETHYLENE GLYCOL 3350 17 GM PKT PO PRN (09:10)
--- NOTE | 2018-06-24 09:34 | SOAPPROG ---
SOAP Progress Note Assessment/Plan: Assessment: 62 y/o F s/p bilateral mastectomies, SN bx, and recon POD #3 S: Overall doing well, but endorses moderate-severe incisional pain. Also has not had BM in last several days. Does not feel ready to be d/c'ed yet. O: Alert Afebrile RRR No increased WOB Breasts: incisions appear cdi with maranda intact, mild ecchymosis surrounding incisions. ENEIDA drains with serosanguinous drainage. Plan: Hopefully d/c tomorrow. Added oxycodone for pain and Senna S for constipation. 06/24/18 09:30 Objective: Vital Signs Temp Pulse Resp BP Pulse Ox 36.3 C 93 16 164/90 H 93 06/24/18 07:50 06/24/18 07:50 06/24/18 07:50 06/24/18 07:50 06/24/18 07:50 06/23/18 06/24/18 06/25/18 05:59 05:59 05:59 Intake Total 2569.2 Output Total 0855 Balance 44.2 ICD10 Worksheet Patient Problems: Problems Problem Status Onset Breast cancer Acute
[2018-06-24] MEDS: oxyCODONE IR 5 MG TAB PO PRN ×4 (09:49→22:41)
[2018-06-24] MEDS: LIDOCAINE 4%/MENTHOL 1% PATCH TD PRN (10:00)
[2018-06-24] MEDS: ALPRAZolam 1 MG TAB PO PRN (10:00)
[2018-06-24] MEDS: PATCH REMOVAL 1 EA PATCH TD SCH (12:13)
[2018-06-24] MEDS: traMADol 50 MG TAB PO PRN ×3 (12:18→22:42)
--- NOTE | 2018-06-24 14:36 | ASMTCMCOM ---
CM Note CM Note Notes: Chart reviewed. Discussed with PT they are recommending [facility] Physical therapy. Spoke with patient who is agreeable. No specific company preference. Referral placed in allscripts. CM available should other needs arise. Plan: Home with [facility]. Date Signed: 06/24/2018 02:13 PM Electronically Signed By:Marsha Cheatham RN
[2018-06-24] MEDS: AMITRIPTYLINE HCL 50 MG TAB PO SCH (22:41)
[2018-06-24] MEDS: ORPHENADRINE CITRATE 100 MG EXT REL TAB PO SCH (22:42)
[2018-06-24] MEDS: SENNOSIDES/DOCUSATE SODIUM TAB PO SCH (22:49)
[2018-06-25] MEDS: CEPHALEXIN 500 MG CAP PO SCH ×3 (00:18→10:58)
[2018-06-25] MEDS: LEVOTHYROXINE 50 MCG TAB PO SCH (05:43)
[2018-06-25] MEDS: oxyCODONE IR 5 MG TAB PO PRN ×2 (05:46→11:50)
--- NOTE | 2018-06-25 06:23 | GOP ---
DATE OF OPERATION: 06/21/2018 SURGEON: Miles Patino MD REELING OPERATOR: Isa Bradshaw, nurse practitioner. PREOPERATIVE DIAGNOSIS: Left breast ductal carcinoma in situ. POSTOPERATIVE DIAGNOSIS: Left breast ductal carcinoma in situ. PROCEDURE PERFORMED: Bilateral mastectomies with bilateral sentinel node biopsies. FINDINGS: Patient was found to have bilateral negative sentinel nodes. She had a seroma cavity in t he upper outer quadrant of the left breast, but no evidence of any residual cancer. ESTIMATED BLOOD LOSS: Less than 100 cc. DESCRIPTION OF PROCEDURE: Patient was taken to the operating room, where she received a satisfactory general endotracheal anesthesia. She was placed in the supine position with both arms outstretched on arm board, prepped and draped in the usual sterile fashion. Bilateral elliptical skin incisions were made to include the nipple-areolar complex. Skin flaps were developed to the clavicle and to the sternum, to the rectus sheath, and to the latissimus dorsi. Br east tissue was elevated up off the pectoral fascia and dissected out toward the base of the axilla. The axilla was entered and the sentinel nodes were isolated and dissected free with hemoclips and el ectrocautery, submitted to Pathology, where they returned as negative. Both sides were handled in a similar manner. On the left side, Plastic Surgery did not want us to excise the previous biopsy inci leonard until they were ready for their reconstruction in which they felt that they would be able to res ect that. After the breast tissue was elevated up off the pectoral muscle including the fascia and r emoved, hemostasis was thoroughly obtained, and the case was then handed over to Dr. Freedman for imm ediate reconstruction. COMPLICATIONS: There were no complications. She was eventually taken to the recovery room in good condition. Copy requested to: Dr. Albaro Cardoza /[id number]/MODL
[2018-06-25 07:40] VITALS: BP 122/78
[2018-06-25] MEDS: HYDROCODONE/APAP 5/325 TAB PO PRN (08:36)
[2018-06-25] MEDS: PANTOPRAZOLE SODIUM 40 MG TAB PO SCH (08:37)
[2018-06-25] MEDS: BENEFIBER/NUTRISOURCE FIBER PKT 1 EACH PO SCH (08:37)
[2018-06-25] MEDS: PREGABALIN 50 MG CAP PO SCH (08:37)
[2018-06-25] MEDS: FLUoxetine 20 MG CAP PO SCH (08:37)
[2018-06-25] MEDS: SENNOSIDES/DOCUSATE SODIUM TAB PO SCH (08:38)
[2018-06-25] MEDS: PATCH REMOVAL 1 EA PATCH TD SCH (08:42)
[2018-06-25] MEDS: LIDOCAINE 4%/MENTHOL 1% PATCH TD PRN (10:59)
--- NOTE | 2018-06-25 10:59 | SOAPPROG ---
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 Pain under control. Doing well. Seen with Dr. Patino. D/c to home. Rx valium, dilaudid. Office f/u planned. O: Alert nad wounds intact no wob rrr 06/25/18 10:57 Objective: Vital Signs Temp Pulse Resp BP Pulse Ox 36.4 C 89 16 122/78 H 94 06/25/18 07:38 06/25/18 07:38 06/25/18 07:38 06/25/18 07:38 06/25/18 07:38 06/24/18 06/25/18 06/26/18 05:59 05:59 05:59 Intake Total 2569.2 Output Total 9985 145 110 Balance 44.2 -145 -110 ICD10 Worksheet Patient Problems: Problems Problem Status Onset Breast cancer Acute
[2018-06-25] MEDS: traMADol 50 MG TAB PO PRN (11:10)
--- NOTE | 2018-06-25 11:26 | PDIAF ---
- Diagnosis Diagnosis: s/p B mastectomy Code Status: Full Code - Medication Management Discharge Medications: electronically signed and located in the Home Medication List. PICC Care - Routine: N/A - Orders Services needed: Home Care, Registered Nurse, Physical Therapy Home Care Face to Face: I certify that this patient was under my care and that I had the required [id number] encounter meeting the encounter requirements on the discharge day. My findings support the fact that the patient is homebound as defined in Home Care Face to Face Continued: CMS Chapter 7 Medicare Benefits Manual 30.1.1 , The condition of the patient is such that there exists a normal inability to leave home and consequently, leaving home would require a considerable and taxing effort. Diet Recommendation: no restrictions on diet Diet Texture: Regular Texture Diet Wound Care Instructions: Routine ENEIDA drain care. Strip, empty, record. Activity/Weight Bearing Restrictions: Up ad stephanie. Upper body restrictions per plastic surgery. Additional Instructions: Lifting and bathing restrictions per Dr. Freedman Check and record ENEIDA output 2x per day - Follow Up Care Current Providers and Referrals: MASOOD RICHARDSON [Primary Care Provider] - Miles Patino MD [Medical Doctor] - follow up in 2 weeks Thony Freedman MD [Medical Doctor] -
--- NOTE | 2018-06-25 11:40 | ASMTLACE ---
LACE Length of stay for Answers: 4-6 days current admission Comorbidities - select Answers: Cerebrovascular disease all that apply (CVA, TIA, aneurysms, vasc ular dementia) Other Notes: Breast ca # of Emergency department Answers: 1-2 visits in the last 6 months Score: 7 Date Signed: 06/25/2018 11:39 AM Electronically Signed By:Marsha Cheatham RN
--- NOTE | 2018-06-25 11:45 | ASMTCMCOM ---
CM Note CM Note Notes: Patient has been medically cleared for discharge to home. She is set up with [facility] for C services. RN and PT. Orders via allscripts. CM available should other needs arise. Plan: Home with [facility] Date Signed: 06/25/2018 11:44 AM Electronically Signed By:Marsha Cheatham RN
--- NOTE | 2018-06-26 13:59 | ASDISCHSUM ---
Discharge Information Plan Status:Home with Home Health Medically Cleared to Leave:06/24/2018 Discharge Date:06/25/2018 12:21 PM D/C Disposition:Home Health Service [facility] D/C Disposition:Home, Routine, Self-Care Projected Discharge Date:06/25/2018 11:00 AM Transportation at D/C: Discharge Delay Reason: Follow-Up Date:06/25/2018 11:00 AM Discharge Slot: Final Diagnosis: Placement Information Referral Type:*Home Health Care Services Referral ID:[id number] Provider Name:[facility] [address] [place] [address] Address 2: City:[place] Selection Factors: State:[place] Patient Contact Information Contact Name:JAYDON Relationship: Address:[address] [place] City:[place] [facility] Phone: State/Zip Code:[place] [address] Email: Financial Information Financial Class:BCOP Primary Plan Desc:BC OUT OF STATE [facility] Primary Plan Number:[id number] Secondary Plan Desc: Secondary Plan Number: Assessment Information LACE LACE Length of stay for Answers: 4-6 days current admission Comorbidities - select Answers: Cerebrovascular disease all that apply (CVA, TIA, aneurysms, vasc ular dementia) Other Notes: Breast ca # of Emergency department Answers: 1-2 visits in the last 6 months Score: 7 Date Signed: 06/25/2018 11:39 AM Electronically Signed By:Marsha Cheatham RN [facility] CM Progress Note CM Note CM Note Notes: Reviewed chart, pt admitted for a scheduled bilateral mastectomy. She lives at home with her , anticipate she will be independent. She has been up walking in hallways but PT eval pending. DC Plan: Independent Date Signed: 06/22/2018 05:23 PM Electronically Signed By:Lora Lee RN [facility] CM Progress Note CM Note CM Note Notes: Chart reviewed. Discussed with PT they are recommending [facility] Physical therapy. Spoke with patient who is agreeable. No specific company preference. Referral placed in allscripts. CM available should other needs arise. Plan: Home with [facility]. Date Signed: 06/24/2018 02:13 PM Electronically Signed By:Marsha Cheatham RN [facility] CM Progress Note CM Note CM Note Notes: Patient has been medically cleared for discharge to home. She is set up with [facility] for [facility] services. RN and PT. Orders via allscripts. CM available should other needs arise. Plan: Home with [facility] Date Signed: 06/25/2018 11:44 AM Electronically Signed By:Marsha Cheatham RN Intervention Information
== END 2018-06-25 12:21 | disposition home health service (06) ==
LOC: F3N 07:20 → F1N 18:06
PROVIDERS: ADMIT Surgery; ATTEND Surgery
DX: C50.912 Malignant neoplasm of unspecified site of left female breast (principal); Z15.01 Genetic susceptibility to malignant neoplasm of breast; G89.29 Other chronic pain; Z86.73 Personal history of transient ischemic attack (TIA), and cerebral infarction without residual deficits; Z80.41 Family history of malignant neoplasm of ovary; Z80.52 Family history of malignant neoplasm of bladder
CPT/HCPCS: 19303; 19340; 38500; 78195; 97116; 97161; 97166; 97530; A9520; G0378; C1789; J1170; J2001; J2250; J2704; J3010; J3360; J3370; Q9968

== ENCOUNTER 2018-07-07 15:02 | Inpatient (IN) | payer BC ==
[2018-07-07 15:56] LABS: PLATELET COUNT 363 10^3/uL (150-400)
--- NOTE | 2018-07-07 16:00 | EDPHY ---
H & P Time Seen by Provider: 07/07/18 15:24 HPI/ROS: Chief complaint. Chest pain HPI. Patient is a 62-year-old female presents with chest pain present for the last 2 days. She describes as left chest pressure radiating to her left arm. Associated shortness of breath. No change with exertion, breathing, movement. She has had some chills and feels weak. No cough or fever. She had a visit from the home health nurse that found low oxygen saturation. Patient had a mastectomy June 21. She had nausea last evening. Otherwise no abdominal pain or vomiting or diarrhea. She has been recently on Lasix and potassium supplement because she had both leg swelling. This is improved with some residual puffiness in the left ankle. No previous history of chest discomfort. Bilateral mastectomies for carcinoma in situ on 06/21/2018 ROS 10 systems were reviewed and negative with the exception of the elements mentioned in the history of present illness Past Medical/Surgical History: Past medical history significant fibromyalgia, hypothyroid, migraines, atrial fibrillation Social History: , nonsmoker, no alcohol Smoking Status: Former smoker Physical Exam: General Appearance: Alert well-developed female moderate distress vital signs show initial heart rate of 99 and O2 saturation 92% on room Eyes: Pupils equal and round no pallor or injection. ENT, Mouth: Mucous membranes are moist. Respiratory: There are no retractions, lungs are clear to auscultation. Cardiovascular: Regular rate and rhythm. Gastrointestinal: Abdomen is soft and nontender, no masses, bowel sounds normal. Neurological: Awake and alert, sensory and motor exams grossly normal. Skin: Warm and dry, no rashes. Musculoskeletal: Neck is supple nontender. Extremities symmetrical, full range of motion. Psychiatric: Patient is oriented X 3, there is no agitation. Constitutional: Initial Vital Signs Temperature (C) 36.8 C 07/07/18 15:06 Heart Rate 99 07/07/18 15:06 Respiratory Rate 16 07/07/18 15:06 Blood Pressure 119/88 H 07/07/18 15:06 O2 Sat (%) 92 07/07/18 15:06 O2 Delivery Mode Nasal Cannula O2 (L/minute) 2 Allergies/Adverse Reactions: ciprofloxacin Allergy (Unknown, Unverified 06/25/18 12:23) Vomiting dexamethasone Allergy (Unknown, Unverified 06/25/18 12:23) Itching swelling Tyimivq-Axj-Hko Reductase Inhibitor [Aktkmvs-Xph-Cac Reductase Inhibitors] Allergy (Unknown, Unverified 06/25/18 12:23) muscle pain weakness azithromycin Allergy (Verified 06/12/18 12:00) Vomiting clindamycin Allergy (Verified 06/12/18 12:00) caused C DIFF x 2 dexamethasone sod phosphate [From Decadron] Allergy (Verified 06/12/18 12:00) itching & swelling Macrolide Antibiotics Allergy (Verified 06/12/18 12:00) Vomiting Penicillins Allergy (Verified 06/12/18 12:00) Vomiting Quinolones Allergy (Verified 06/12/18 12:00) Vomiting dexamethasone sod phosphate Allergy (Unknown, Uncoded 06/25/18 12:23) itching swelling Home Medications: Medication Instructions Recorded ALPRAZolam [Xanax 0.5 MG (*)] 0.5 mg PO BID PRN 06/12/18 Albuterol [Proventil Inhaler HFA 1 - 2 puffs IH Q4H PRN 06/12/18 (*)] Amitriptyline HCl [Elavil 50 mg 50 mg PO HS 06/12/18 (*)] Cholecalciferol Vit D3 [Vitamin D3 1,000 units PO DAILY 06/12/18 (*)] Cyanocobalamin [Vitamin B12 (*)] 100 mcg PO DAILY 06/12/18 Esomeprazole Magnesium [Nexium 20 mg PO DAILY 06/12/18 24Hr] FLUoxetine [Prozac 20 MG (*)] 20 mg PO DAILY 06/12/18 Guar Gum [Benefiber/Nutrisource 1 each PO DAILY 06/12/18 Fiber (*)] Herbals/Supplements -Info Only 1 ea PO DAILY 06/12/18 Levothyroxine [Synthroid 50 mcg 50 mcg PO DAILY06 06/12/18 (*)] Lidocaine [Lidoderm] 1 each TP DAILY PRN 06/12/18 Orphenadrine Citrate [Norflex 100 100 mg PO HS 06/12/18 mg (*)] Orphenadrine Citrate [Norflex 100 100 mg PO HS 06/12/18 mg (*)] Phentermine HCl [Lomaira] 8 mg PO BID 06/12/18 Pregabalin [Lyrica 100mg (*)] 100 mg PO BID 06/12/18 traMADol [Ultram 50 mg (*)] 50 mg PO Q4 PRN 06/12/18 celeCOXIB [Celebrex (*)] 200 mg PO DAILY 06/21/18 Diazepam [Valium 5 MG (*)] 5 mg PO Q6HRS PRN #20 tab 06/23/18 Cephalexin [Keflex (*)] 500 mg PO Q6HRS cap 06/25/18 Hydrocodone/Acetaminophen [[place] 1 each PO Q4 PRN #30 tablet 06/25/18 5/325 (*)] Medical Decision Making - Diagnostics EKG Interpretation: EKG interpreted by me shows normal sinus rhythm normal interval. Left axis deviation. QRS otherwise normal there is no significant ST elevation or depression. There is no arrhythmia. The rate is 91 Imaging Results: Imaging Impressions Chest X-Ray 07/07/18 16:08 Impression: Basilar opacities, probably atelectasis with clinical correlation recommended. Chest/Thorax CTA 07/07/18 16:43 Impression: 1. No evidence of pulmonary embolic disease. 2. Free air is seen around the left breast prosthesis. 3. See above report for additional findings. Results called and discussed with BYRON SILVER M.D. on 07/07/2018 at 18:48. Procedures: IV normal saline, monitor ED Course/Re-evaluation: Re-evaluation 4:40 p.m.. Patient is stable. She and I discussed laboratory evaluation elevated D-dimer. I recommended CT angiogram looking for pulmonary embolus Indication is recent surgery, chest pain, low oxygen saturation, elevated D- dimer Re-evaluation at 6:55 p.m.. Patient continues to have chest pain. Patient, , and I discussed imaging and lab results. We discussed treatment plan including recommendation for admission for continuing chest pain. They expressed understanding and agreement I consulted and discussed the case with Dr. Whatley for [facility] who agrees to the admission Differential Diagnosis: I considered pulmonary embolus, pneumonia, acute coronary syndrome. - Data Points Laboratory Results: Laboratory Results 07/07/18 15:24 07/07/18 15:24 07/07/18 07/07/18 07/07/18 16:27 15:24 15:24 WBC RBC Hgb Hct MCV MCH MCHC RDW Plt Count MPV Neut % (Auto) Lymph % (Auto) [place] % (Auto) Eos % (Auto) Baso % (Auto) Nucleat RBC Rel Count Absolute Neuts (auto) Absolute Lymphs (auto) Absolute Monos (auto) Absolute Eos (auto) Absolute Basos (auto) Absolute Nucleated RBC Immature Gran % Immature Gran # D-Dimer 2.58 ug/mLFEU H ug/mLFEU (0.00-0.50) Sodium Potassium Chloride Carbon Dioxide Anion Gap BUN Creatinine Estimated GFR Glucose Calcium POC Troponin I 0.01 ng/mL ng/mL (0.00-0.08) NT-Pro-B Natriuret Pep 69 pg/mL pg/mL (0-125) 07/07/18 07/07/18 15:24 15:24 WBC 7.56 10^3/uL 10^3/uL (3.80-9.50) RBC 4.70 10^6/uL 10^6/uL (4.18-5.33) Hgb 14.2 g/dL g/dL (12.6-16.3) Hct 42.5 % % (38.0-47.0) MCV 90.4 fL fL (81.5-99.8) MCH 30.2 pg pg (27.9-34.1) MCHC 33.4 g/dL g/dL (32.4-36.7) RDW 12.8 % % (11.5-15.2) Plt Count 363 10^3/uL 10^3/uL (150-400) MPV 9.6 fL fL (8.7-11.7) Neut % (Auto) 60.8 % % (39.3-74.2) Lymph % (Auto) 22.0 % % (15.0-45.0) [place] % (Auto) 5.3 % % (4.5-13.0) Eos % (Auto) 10.6 % H % (0.6-7.6) Baso % (Auto) 0.9 % % (0.3-1.7) Nucleat RBC Rel Count 0.0 % % (0.0-0.2) Absolute Neuts (auto) 4.60 10^3/uL 10^3/uL (1.70-6.50) Absolute Lymphs (auto) 1.66 10^3/uL 10^3/uL (1.00-3.00) Absolute Monos (auto) 0.40 10^3/uL 10^3/uL (0.30-0.80) Absolute Eos (auto) 0.80 10^3/uL H 10^3/uL (0.03-0.40) Absolute Basos (auto) 0.07 10^3/uL 10^3/uL (0.02-0.10) Absolute Nucleated RBC 0.00 10^3/uL 10^3/uL (0-0.01) Immature Gran % 0.4 % % (0.0-1.1) Immature Gran # 0.03 10^3/uL 10^3/uL (0.00-0.10) D-Dimer Sodium 141 mEq/L mEq/L (135-145) Potassium 4.8 mEq/L mEq/L (3.3-5.0) Chloride 105 mEq/L mEq/L (97-110) Carbon Dioxide 27 mEq/l mEq/l (22-31) Anion Gap 9 mEq/L mEq/L (6-14) BUN 19 mg/dL mg/dL (7-23) Creatinine 0.9 mg/dL mg/dL (0.6-1.0) Estimated GFR > 60 Glucose 103 mg/dL H mg/dL (70-100) Calcium 9.9 mg/dL mg/dL (8.5-10.4) POC Troponin I NT-Pro-B Natriuret Pep Point of Care Test Results: Chemistry 07/07/18 16:27 POC Troponin I 0.01 ng/mL ng/mL (0.00-0.08) Departure - Departure Disposition: [facility] Inpatient Acute Clinical Impression: Chest pain Qualifiers: Chest pain type: unspecified Qualified Code(s): R07.9 - Chest pain, unspecified Condition: Fair Referrals: MASOOD RICHARDSON [Primary Care Provider] - As per Instructions
[2018-07-07] MEDS ORDERED: IOPAMIDOL (ISOVUE 370) 100 ML BTL IV ONE (17:13)
--- NOTE | 2018-07-07 17:49 | CPEKG ---
Test Reason : OPEN Blood Pressure : / mmHG Vent. Rate : 091 BPM Atrial Rate : 091 BPM P-R Int : 156 ms QRS Dur : 078 ms QT Int : 362 ms P-R-T Axes : 057 -18 037 degrees QTc Int : 446 ms Sinus rhythm Probable left atrial enlargement Inferior infarct, old Confirmed by Akshat Sierra ([id number]) on 07/07/2018 5:49:28 PM Referred By: Confirmed By:Akshat Sierra
[2018-07-07] MEDS ORDERED: PROMETHAZINE HCL 25 MG/ML INJ IVP PRN (21:00)
[2018-07-07] MEDS ORDERED: NITROGLYCERIN 0.4 MG BTL SL PRN (21:00)
[2018-07-07] MEDS ORDERED: NS 1,000 ML IV SCH (21:00)
[2018-07-07] MEDS ORDERED: HYDROCODONE/APAP 5/325 TAB PO PRN (21:00)
[2018-07-07] MEDS ORDERED: LORazepam 0.5 MG TAB PO PRN (21:00)
[2018-07-07] MEDS ORDERED: ONDANSETRON DISINTEGRATING 4 MG TAB PO PRN (21:00)
[2018-07-07] MEDS ORDERED: ONDANSETRON 4 MG/2 ML VIAL IVP PRN (21:00)
[2018-07-07] MEDS ORDERED: LORazepam 2 MG/ML INJ IVP PRN (21:00)
[2018-07-07] MEDS ORDERED: ALBUTEROL 60 PUFFS/8 GM MDI IH PRN (21:04)
[2018-07-07] MEDS ORDERED: DIAZEPAM 5 MG TAB PO PRN (21:04)
--- NOTE | 2018-07-07 21:18 | PDGENHP ---
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 She notes that the surgery was difficult and she remained in the hospital x 4 days but then went home and seemed overall to be improving. She has had tissue expanders placed since then and had her first fill this week and notes she tolerated that well. For the last 2 days however she has been much worse than she had been previously, she notes that she has had chest pain that also has involved her left arm. Her home health nurse noted that her oxygen was low. She also has been increasingly weak and notes that she has fallen 3 times in the last 2 day. She has had some swelling in her feet since the surgery and has been on lasix but she notes that overall the swelling has been improving. She has not had fever or chills, her surgical wounds have been evaluated by her plastic surgeon yesterday and recently by Dr. Patino and seem to be healing appropriately--she is still on keflex for that and does still have one drain in place. History Information - Allergies/Home Medication List Allergies/Adverse Reactions: ciprofloxacin Allergy (Unknown, Unverified 06/25/18 12:23) Vomiting dexamethasone Allergy (Unknown, Unverified 06/25/18 12:23) Itching swelling Oualnsn-Zgc-Eeh Reductase Inhibitor [Kdmuicr-Kfz-Mhc Reductase Inhibitors] Allergy (Unknown, Unverified 06/25/18 12:23) muscle pain weakness azithromycin Allergy (Verified 06/12/18 12:00) Vomiting clindamycin Allergy (Verified 06/12/18 12:00) caused C DIFF x 2 dexamethasone sod phosphate [From Decadron] Allergy (Verified 06/12/18 12:00) itching & swelling Macrolide Antibiotics Allergy (Verified 06/12/18 12:00) Vomiting Penicillins Allergy (Verified 06/12/18 12:00) Vomiting Quinolones Allergy (Verified 06/12/18 12:00) Vomiting dexamethasone sod phosphate Allergy (Unknown, Uncoded 06/25/18 12:23) itching swelling Home Medications: Albuterol [Proventil Inhaler HFA (*)] 1 - 2 puffs IH Q4H PRN 06/12/18 [Last Taken Unknown] Amitriptyline HCl [Elavil 50 mg (*)] 50 mg PO HS 06/12/18 [Last Taken 06/20/18] Esomeprazole Magnesium [Nexium 24Hr] 20 mg PO DAILY 06/12/18 [Last Taken ] FLUoxetine [Prozac 20 MG (*)] 20 mg PO DAILY 06/12/18 [Last Taken 06/21/18] Orphenadrine Citrate [Norflex 100 mg (*)] 100 mg PO HS 06/12/18 [Last Taken ] celeCOXIB [Celebrex (*)] 200 mg PO DAILY 06/21/18 [Last Taken 06/14/18] Furosemide [Lasix 40 MG (*)] 40 mg PO DAILY 07/07/18 [Last Taken Unknown] Levothyroxine [Synthroid 150 mcg (*)] 150 mcg PO DAILY06 07/07/18 [Last Taken Unknown] Potassium Chloride [Klor-Con 10] 10 meq PO DAILY 07/07/18 [Last Taken Unknown] Pregabalin [Lyrica 150mg (*)] 150 mg PO BID 07/07/18 [Last Taken Unknown] I have personally reviewed and updated: family history, medical history, social history, surgical history - Past Medical History atrial fibrillation (post op), cancer (DCIS), fibromyalgia, GERD, migraines, psychiatric history - Surgical History Reports: mastectomy - Family History Positive for: cancer (mother with bladder cancer, sister with ovarian cancer) - Social History Smoking Status: Former smoker Alcohol Use: None Drug Use: None Additional social history: , lives independently Review of Systems Review of Systems: ROS: 10pt was reviewed & negative except for what was stated in HPI & below Physical Exam Physical Exam: Temp Pulse Resp BP Pulse Ox 36.8 C 77 14 132/85 H 94 07/07/18 20:57 07/07/18 20:57 07/07/18 20:57 07/07/18 20:57 07/07/18 20:57 O2 (L/minute) 1 Constitutional: obese, uncomfortable Eyes: PERRL, anicteric sclera Ears, Nose, Mouth, Throat: moist mucous membranes, hearing normal Cardiovascular: regular rate and rhythym, no murmur, rub, or gallop, edema Respiratory: no respiratory distress, no rales or rhonchi, clear to auscultation Gastrointestinal: normoactive bowel sounds, soft, non-tender abdomen Genitourinary: no bladder tenderness Skin: warm, normal color Musculoskeletal: muscular tenderness, No asymmetric calves Neurologic: AAOx3 Psychiatric: interacting appropriately, not anxious, not encephalopathic Lab Data & Imaging Review 07/07/18 15:24 07/07/18 15:24 WBC 7.56 10^3/uL (3.80-9.50) 07/07/18 15:24 RBC 4.70 10^6/uL (4.18-5.33) 07/07/18 15:24 Hgb 14.2 g/dL (12.6-16.3) 07/07/18 15: Hct 42.5 % (38.0-47.0) 07/07/18 15: MCV 90.4 fL (81.5-99.8) 07/07/18 15: MCH 30.2 pg (27.9-34.1) 07/07/18 15:24 MCHC 33.4 g/dL (32.4-36.7) 07/07/18 15:24 RDW 12.8 % (11.5-15.2) 07/07/18 15:24 Plt Count 363 10^3/uL (150-400) 07/07/18 15: MPV 9.6 fL (8.7-11.7) 07/07/18 15:24 Neut % (Auto) 60.8 % (39.3-74.2) 07/07/18: Lymph % (Auto) 22.0 % (15.0-45.0) 07/07/18 15:24 [place] % (Auto) 5.3 % (4.5-13.0) 07/07/18 15:24 Eos % (Auto) 10.6 % (0.6-7.6) H 07/07/18 15:24 Baso % (Auto) 0.9 % (0.3-1.7) 07/07/18 15:24 Nucleat RBC Rel Count 0.0 % (0.0-0.2) 07/07/18 15: Absolute Neuts (auto) 4.60 10^3/uL (1.70-6.50) 07/07/18 15:24 Absolute Lymphs (auto) 1.66 10^3/uL (1.00-3.00) 07/07/18 15:24 Absolute Monos (auto) 0.40 10^3/uL (0.30-0.80) 07/07/18 15:24 Absolute Eos (auto) 0.80 10^3/uL (0.03-0.40) H 07/07/18 15:24 Absolute Basos (auto) 0.07 10^3/uL (0.02-0.10) 07/07/18 15:24 Absolute Nucleated RBC 0.00 10^3/uL (0-0.01) 07/07/18 15:24 Immature Gran % 0.4 % (0.0-1.1) 07/07/18 15:24 Immature Gran # 0.03 10^3/uL (0.00-0.10) 07/07/18 15:24 D-Dimer 2.58 ug/mLFEU (0.00-0.50) H 07/07/18 15:24 Sodium 141 mEq/L (135-145) 07/07/18 15:24 Potassium 4.8 mEq/L (3.3-5.0) 07/07/18 15:24 Chloride 105 mEq/L (97-110) 07/07/18 15:24 Carbon Dioxide 27 mEq/l (22-31) 07/07/18 15:24 Anion Gap 9 mEq/L (6-14) 07/07/18 15:24 BUN 19 mg/dL (7-23) 07/07/18 15:24 Creatinine 0.9 mg/dL (0.6-1.0) 07/07/18 15:24 Estimated GFR > 60 07/07/18 15:24 Glucose 103 mg/dL (70-100) H 07/07/18 15:24 Calcium 9.9 mg/dL (8.5-10.4) 07/07/18 15:24 POC Troponin I 0.01 ng/mL (0.00-0.08) 07/07/18 16:27 NT-Pro-B Natriuret Pep 69 pg/mL (0-125) 07/07/18 15:24 Visualized and Interpreted Chest x-ray results: Yes Chest X-Ray results: no infiltrate, other (atelectassis) Visualized and Interpreted imaging results: Yes Interpretation: CTA: no PE Visualized and Interpreted EKG results: Yes EKG Interpretation: Positive for: normal sinsus rhythm, Q waves Assessment & Plan Assessment: Chest pain (Acute) 62 yo F with hx of fibromyalgia, and 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 Patient will be monitored overnight on tele with serial trops and ecgs. She has been falling and exercise is not possible so will get lexiscan with MPI in am. Could certainly be related to recent surgery however patient notes this pain is different and that her surgical pain had been improving. # s/p mastectomy: surgical wounds appear CDI without signs of infection at this time, tissue expanders in place # DCIS: as above, she has an appt to f/u with medical oncology in coming weeks # fibromyalgia: continue her op regimen # observation status Patient new to my care. Old records reviewed and summarized as above. Care plan reviewed with ER doctor. Further hx obtained from patients as above.
[2018-07-07] MEDS: POTASSIUM CL 10 MEQ TAB PO SCH (22:05)
[2018-07-07] MEDS: PREGABALIN 75 MG CAP PO SCH (22:05)
[2018-07-07] MEDS: ORPHENADRINE CITRATE 100 MG EXT REL TAB PO SCH (22:05)
[2018-07-07] MEDS: AMITRIPTYLINE HCL 50 MG TAB PO SCH (22:05)
[2018-07-07] MEDS: oxyCODONE IR 5 MG TAB PO PRN (22:07)
[2018-07-08] MEDS: CEPHALEXIN 500 MG CAP PO SCH ×5 (00:06→23:12)
[2018-07-08] MEDS: oxyCODONE IR 5 MG TAB PO PRN (02:45)
[2018-07-08 04:42] LABS: PLATELET COUNT 307 10^3/uL (150-400)
--- NOTE | 2018-07-08 06:40 | CPEKG ---
Test Reason : OPEN Blood Pressure : / mmHG Vent. Rate : 094 BPM Atrial Rate : 094 BPM P-R Int : 171 ms QRS Dur : 078 ms QT Int : 363 ms P-R-T Axes : 047 003 042 degrees QTc Int : 454 ms Sinus rhythm Probable left atrial enlargement Low voltage, precordial leads Confirmed by Christine Jaime ([id number]) on 07/08/2018 6:40:10 AM Referred By: Confirmed By:Christine Jaime
[2018-07-08] MEDS: LEVOTHYROXINE 150 MCG TAB PO SCH (06:43)
[2018-07-08] MEDS: FUROSEMIDE 40 MG TAB PO SCH (09:03)
[2018-07-08] MEDS: ASPIRIN 325 MG TAB PO SCH (09:03)
[2018-07-08] MEDS: PREGABALIN 75 MG CAP PO SCH ×2 (09:03→23:12)
[2018-07-08] MEDS: PANTOPRAZOLE SODIUM 40 MG TAB PO SCH (09:03)
[2018-07-08] MEDS: FLUoxetine 20 MG CAP PO SCH (09:03)
[2018-07-08] MEDS: POTASSIUM CL 10 MEQ TAB PO SCH (09:04)
[2018-07-08] MEDS ORDERED: REGADENOSON 0.4 MG/5 ML SYR IVP ONE (10:45)
[2018-07-08] MEDS: ACETAMINOPHEN 325 MG TAB PO PRN (13:17)
--- NOTE | 2018-07-08 13:23 | CPR ---
PROCEDURE: Lexiscan nuclear stress test. REASON FOR TEST: Chest pain. Resting EKG shows a regular sinus rhythm. Heart rate 80, blood pressure 124/72. She reports a 5/10 chest discomfort. She has had this intermittently. She does have family historyof coronary artery d isease. Her brother and her paternal grandfather both had heart attacks. STRESS PORTION: This is a Lexiscan nuclear stress test. Lexiscan was injected rapidly, followed by saline flush. Cardiolite was then injected, followed by saline flush. Her peak blood pressure 120/7 8, peak heart rate 95, oxygen saturation 96%. She did complain of headache after the injection. Tatiana st pain continued at 5/10. There were no significant EKG changes. RECOVERY: She did spontaneously recover. Her headache was letting up. Caffeine was given as antido te. Blood pressure 128/70, heart rate 84, oxygen saturation 95%. No significant EKG changes. At this time, she currently is stable for nuclear imaging. /[id number]/MODL
--- NOTE | 2018-07-08 14:47 | HOSPPROG ---
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 #Chest pain: Lexiscan w/MPI and CTA chest negative. Suspect MSK. Some free air around left breast prothesis, likely normal after procedure. - Tylenol, ibuprofen PRN #Acute encephalopathy: Metabolic vs r/t depression vs meds. This is mild. No focal neuro deficits. Several day decline per . - Non-con CT head - Check TSH, LFTs, UA - Avoid centrally acting meds as able #Generalized weakness: Suspect r/t above process. Work up as above. - PT/OT when appropriate #BLE edema: Unclear etiology, just started on diuretic as outpt - Continue lasix #DCIS s/p mastectomy: No signs of infection at wound sites. Continue post- procedural keflex. #Fibromyalgia: Continue home elavil, prozac, lyrica. #Migraines: Sees outpt neurologist for botox injections. #Hypothyroidism: Home synthroid, checking TSH. VTE ppx: LMWH Dispo: Switch to inpatient, unsafe to manage self at home. Working up encephalopathy as above. Subjective: Had stress test this AM. Headache afterwards. Remains with low level chest pain. She is very sleepy, complains of trouble speaking since yesterday. reports becoming more lethargic since late last week, then depressed over the weekend. Objective: Vital Signs Temp Pulse Resp BP Pulse Ox 36.3 C 84 14 107/55 L 95 07/08/18 12:00 07/08/18 12:00 07/08/18 12:00 07/08/18 12:00 07/08/18 12:00 Laboratory Results 07/08/18 03:42 07/07/18 07/08/18 07/09/18 05:59 05:59 05:59 Intake Total 1200 Output Total 500 Balance 700 - Physical Exam Constitutional: uncomfortable, other (somnolent) Eyes: PERRL, anicteric sclera, EOMI Ears, Nose, Mouth, Throat: dry mucous membranes Cardiovascular: regular rate and rhythym, no murmur, rub, or gallop, edema (2+ BLE) Respiratory: no respiratory distress, no rales or rhonchi, clear to auscultation Gastrointestinal: normoactive bowel sounds, soft, non-tender abdomen, no palpable masses Genitourinary: no bladder fullness, no bladder tenderness, no renal bruits Skin: no rashes or abrasions, no fluctuance, no induration Musculoskeletal: generalized weakness Neurologic: AAOx3, sensation intact bilaterally, CN II-XII Intact, other ( unable to count back by serial 7s or spell WORLD backwards), No numbness, No pronator drift, No asterixes, No facial droop Psychiatric: encephalopathic ICD10 Worksheet Patient Problems: Problems Problem Status Onset Chest pain Acute Breast cancer Acute
[2018-07-08] MEDS ORDERED: IBUPROFEN 600 MG TAB PO PRN (14:54)
--- NOTE | 2018-07-08 16:30 | ASMTCMCOM ---
CM Note CM Note Notes: Met with patient and re: dispo plan. Patient currently receives home care services through [facility], RN only. Alerted [facility] patient was in the hospital. Patient would like to d/c home and continue the services with [facility]. CM will continue to follow. Plan: [facility] RN/PT/OT Date Signed: 07/08/2018 04:29 PM Electronically Signed By:Keisha Roach RN
[2018-07-08] MEDS: ENOXAPARIN 40 MG/0.4 ML SYR SC SCH (17:01)
--- NOTE | 2018-07-08 17:07 | PDMN ---
Medical Necessity Medical necessity: [facility] General Admission: 62 yo initially presents w/ CP and generalized weakness admit to OBS for cardiac workup. Nuc med scan neg - new pt c/o H/A since scan. During hospital OBS stay post scan pt developed acute encephalopathy, metabolic vs depression vs meds. Pt very sleepy, c/o trouble speaking since yesterday. Further workup for encephalopathy needed, CT scan ordered. PT/OT ordered. Developed tachycardia 119 this afternoon post scans. Change to IP as pt unsafe to manage at home and further workup as above needed, will require additional MN. Meets general admission criteria for new onset hemodynamic instability and encephalopathy which needs further workup. Hx afib, DCIS w/ high risk genetic testing, fibromyalgia, GERD, migraines, psych hx, recent mastectomy. Change to IP status 07/08/18 @ 1551 per order
[2018-07-08] MEDS: AMITRIPTYLINE HCL 50 MG TAB PO SCH (23:12)
[2018-07-08] MEDS: ORPHENADRINE CITRATE 100 MG EXT REL TAB PO SCH (23:12)
[2018-07-09] MEDS: LEVOTHYROXINE 150 MCG TAB PO SCH (06:18)
[2018-07-09] MEDS: CEPHALEXIN 500 MG CAP PO SCH ×2 (06:18→13:15)
[2018-07-09] MEDS: PREGABALIN 75 MG CAP PO SCH (08:25)
[2018-07-09] MEDS: ACETAMINOPHEN 325 MG TAB PO PRN (08:25)
[2018-07-09] MEDS: ASPIRIN 325 MG TAB PO SCH (08:25)
[2018-07-09] MEDS: FUROSEMIDE 40 MG TAB PO SCH (08:26)
[2018-07-09] MEDS: PANTOPRAZOLE SODIUM 40 MG TAB PO SCH (08:26)
[2018-07-09] MEDS: FLUoxetine 20 MG CAP PO SCH (08:26)
[2018-07-09] MEDS: ENOXAPARIN 40 MG/0.4 ML SYR SC SCH (08:26)
[2018-07-09] MEDS: POTASSIUM CL 10 MEQ TAB PO SCH (08:26)
[2018-07-09 11:46] VITALS: BP 117/75
--- NOTE | 2018-07-09 12:33 | PDIAF ---
- Diagnosis Code Status: Full Code - Medication Management Discharge Medications: electronically signed and located in the Home Medication List. - Orders Services needed: Home Care, Registered Nurse, Physical Therapy, Occupational Therapy Home Care Face to Face: I certify that this patient was under my care and that I had the required [id number] encounter meeting the encounter requirements on the discharge day. My findings support the fact that the patient is homebound as defined in Home Care Face to Face Continued: CMS Chapter 7 Medicare Benefits Manual 30.1.1 , The condition of the patient is such that there exists a normal inability to leave home and consequently, leaving home would require a considerable and taxing effort. Additional Instructions: I did not make any medication adjustments during your stay. I encourage you to try and avoid narcotic/opioid medications (such as oxycodone) for your pain if possible. Please follow up tomorrow in plastic surgery clinic to see if you can get your drain removed. I have ordered [facility] home health nursing as well as PT and OT for you. - Follow Up Care Current Providers and Referrals: MASOOD RICHARDSON [Primary Care Provider] - As per Instructions
--- NOTE | 2018-07-09 14:12 | ASMTLACE ---
LACE Length of stay for Answers: Less than 1 day current admission Acuity / Level of Answers: Yes Care: Did the patient have an inpatient admission? Comorbidities - select Answers: Opioid dependence all that apply / Chronic pain Other Notes: AFib; Hypothyroid; Hx o f breast carcinoma # of Emergency department Answers: 1-2 visits in the last 6 months Social determinants Answers: Mental health diagnosis (anxiety, depression, pers onality disorders, etc.) Score: 12 Date Signed: 07/09/2018 02:11 PM Electronically Signed By:Arabella Umaña
--- NOTE | 2018-07-09 18:41 | PDDCSUM ---
Discharge Summary Discharge Summary: Date of Admission: 07/07/2018 Date of Discharge: 07/09/2018 Studies: 1. CTA chest 2. Lexiscan stress with MPI Discharge Diagnosis: 1. Non-cardiac chest pain 2. Generalized weakness 3. DCIS s/p recent bilateral mastectomy (for high risk genetic testing) 4. Depression 5. BLE edema 6. Fibromyalgia 7. Migraines 8. Hypothyroidism Brief Hospital Course: 62 yo F with hx of fibromyalgia and recent dx of DCIS with high risk genetic testing s/p recent bilateral mastectomy and prosthesis implantation (06/21) presented with chest pain and generalized weakness. She was ruled out for ACS and underwent Lexiscan stress with MPI which was negative for ischemia. A CTA of her chest was also negative for PE. The CT did show some free air around her left breast prosthesis which is likely a sequelae of her ENEIDA drain recently falling out. Her symptoms were felt to be due to post-surgical inflammation. She did seem quite depressed during this admission re: her recent DCIS diagnosis and surgery. She did contract for safety and has a good follow up plan to establish with a therapist. I believe her generalized weakness is related to lack of motivation from her depressed mood. She was ambulating independently and performing ADLs prior to discharge. She is being set up with home RN/PT/OT. Medications: Please refer to EMR for complete list. No changes were made this admission. Follow Up Plan: 1. F/u in plastic surgery clinic tomorrow for removal of right breast drain 2. Clinic appt next week with Dr Myah Manley (medical oncology) to address therapy options 3. Recommended establishing with mental health provider Physical Exam: Vitals reviewed, afebrile and normotensive. Alert and oriented without focal neurologic deficit. RRR without m/r/g, lungs clear, abdomen soft. 1+ BLE pitting edema. Right breast drain. Bilateral mastectomy incision sites healing well.
--- NOTE | 2018-07-11 09:53 | ASDISCHSUM ---
Discharge Information Plan Status:Home with Home Health Medically Cleared to Leave:07/08/2018 Discharge Date:07/09/2018 02:12 PM CM D/C Disposition:Home, Routine, Self-Care ADT D/C Disposition:Home Health Service Projected Discharge Date:07/10/2018 11:00 AM Transportation at D/C:Family Discharge Delay Reason: Follow-Up Date:07/10/2018 11:00 AM Discharge Slot: Final Diagnosis: Placement Information Referral Type:*Home Health Care Services Referral ID:[id number] Provider Name:[facility] Address 1[address] [place] [address] Address 2: City:[place] Selection Factors: State:[place] Patient Contact Information Contact Name:JAYDON Relationship: Address:[address] City:[facility] [facility] Phone: State/Zip Code:[place] [address] Email: Financial Information Financial Class:BCOP Primary Plan Desc:BC OUT OF STATE PPO Primary Plan Number:[id number] Secondary Plan Desc: Secondary Plan Number: Assessment Information LACE LACE Length of stay for Answers: Less than 1 day current admission Acuity / Level of Answers: Yes Care: Did the patient have an inpatient admission? Comorbidities - select Answers: Opioid dependence all that apply / Chronic pain Other Notes: AFib; Hypothyroid; Hx o f breast carcinoma # of Emergency department Answers: 1-2 visits in the last 6 months Social determinants Answers: Mental health diagnosis (anxiety, depression, pers onality disorders, etc.) Score: 12 Date Signed: 07/09/2018 02:11 PM Electronically Signed By:Arabella Umaña [facility] CM Progress Note CM Note CM Note Notes: Met with patient and re: dispo plan. Patient currently receives home care services through [facility], RN only. Alerted [facility] patient was in the hospital. Patient would like to d/c home and continue the services with [facility]. CM will continue to follow. Plan: [facility] RN/PT/OT Date Signed: 07/08/2018 04:29 PM Electronically Signed By:Keisha Roach RN Intervention Information Intervention Type:*Incorrect Registration Date of Service:07/08/2018 08:53 AM Patient Type:Inpatient Staff Member:Liz Gibbons Hours: Discipline: Severity: Comment:
== END 2018-07-09 14:12 | disposition home health service (06) | DRG 313 ==
LOC: INTOOBSV 19:19 → F2W 20:30 → OBSVTOIN 07-08 15:51
PROVIDERS: ADMIT Internal Medicine; ATTEND Internal Medicine
DX: R07.9 Chest pain, unspecified (principal); R53.1 Weakness; F32.9 Major depressive disorder, single episode, unspecified; M79.7 Fibromyalgia; D05.10 Intraductal carcinoma in situ of unspecified breast; R29.6 Repeated falls; R60.9 Edema, unspecified; E03.9 Hypothyroidism, unspecified; F41.9 Anxiety disorder, unspecified; G43.909 Migraine, unspecified, not intractable, without status migrainosus; I48.91 Unspecified atrial fibrillation; K21.9 Gastro-esophageal reflux disease without esophagitis; Z15.01 Genetic susceptibility to malignant neoplasm of breast; Z87.891 Personal history of nicotine dependence; Z80.41 Family history of malignant neoplasm of ovary; Z80.52 Family history of malignant neoplasm of bladder; Z90.13 Acquired absence of bilateral breasts and nipples; Z98.890 Other specified postprocedural states; Z98.82 Breast implant status; Z97.8 Presence of other specified devices; Z88.0 Allergy status to penicillin
CPT/HCPCS: 84484-PO; 97161-GP; 97165-GO; 97535-GO; A9500; G0378; J1650; J2785; Q9967

== ENCOUNTER 2018-07-28 09:42 | Observation (INO) | payer BC ==
[2018-07-28] MEDS ORDERED: ONDANSETRON 4 MG/2 ML VIAL IVP ONE (10:01)
[2018-07-28] MEDS ORDERED: ASPIRIN 81 MG CHEWABLE TAB PO ONE (10:01)
[2018-07-28 10:09] LABS: PLATELET COUNT 211 10^3/uL (150-400)
--- NOTE | 2018-07-28 10:09 | EDPHY ---
General Time Seen by Provider: 07/28/18 09:50 Narrative: CHIEF COMPLAINT: Chest pain HISTORY OF PRESENT ILLNESS: Patient presents prior vehicle with her spouse at bedside with complaints of chest pain. Chest pain started 45 min prior to arrival. It is retrosternal and central. It is moderate to severe. No worsening with exertion. No diaphoresis. Some nausea. Worse with inspiration. She associates this with recent cough and runny nose. She has no abdominal urinary complaints. She has no neck pain or stiffness. No headache. No fever. She has no recent travel or trauma, but she was recently admitted to the hospital last month. She has no previous venous thrombolic event. She is not currently on chemotherapy or radiation. She has not take tamoxifen or estrogen receptor modifiers. No other associated complaints or modifying factors. REVIEW OF SYSTEMS: 10 systems were reviewed and negative with the exception of the elements mentioned in the history of present illness. PCP: Dr. Cardoza SPECIALISTS: Dr. Manley, Oncology Dr. Patino, Surgery Dr. Freedman, Plastic Surgery PAST MEDICAL HISTORY: Ductal carcinoma in situ, fibromyalgia, hypothyroid, migraines, YANNA PAST SURGICAL HISTORY: Recent bilateral mastectomy. SOCIAL HISTORY: Never smoker. Lives independently with her spouse. FAMILY HISTORY: Noncontributory. No coronary artery disease in the primary relatives EXAMINATION: Vitals: Triage VS reviewed. No SIRS criteria General Appearance: Alert, no distress. Tearful but consolable. Nontoxic. Head: normocephalic, atraumatic Eyes: Pupils equal and round, no conjunctival pallor or injection ENT, Mouth: Mucous membranes moist Neck: Normal inspection, supple, non-tender. No meningismus Respiratory: Lungs are clear to auscultation. No wheezing, rhonchi or crackles. No retractions or distress. Normal work of breathing Cardiovascular: Regular rate and rhythm Gastrointestinal: Abdomen is soft and nontender no tympany rigidity Back: non-tender, no bony abnormalities Neurological: A&O, nonfocal, normal gait Skin: Warm and dry, no rash. No petechiae or purpura Extremities: Nontender, no pedal edema Psychiatric: Mood and affect normal DIFFERENTIAL DIAGNOSES: Including but not limited to pleurisy, pericarditis, aneurysm, dissection, reflux, ACS, PE, fibromyalgia MDM: 9:50 a.m. Chest pain of less than 45 min duration that is pleuritic in nature. Nonexertional. No diaphoresis. Patient does have a recent cardiac workup, including CT angiography and normal Lexiscan test. I have ordered aspirin and EKG has already been obtained. No acute ischemia. Chest x-ray and laboratory studies will be ordered. I have ordered pain medication. She is in no acute distress with no tachycardia, tachypnea or hypoxemia. 10:15 a.m. Point of care troponin is negative at 0.01. 10:30 a.m. D-dimer is slightly elevated. Remainder laboratory studies within normal limits. CT angiography of the chest ordered to rule out PE. I have re- evaluated the patient. Her pain is improving but still at a 5/10. During my examination her oxygenation was at 85% on room air with good pleth I placed her on 2 L nasal cannula and she medially improved to the mid 90s. She is in no acute distress. 12:00 p.m. Notified by radiologist Dr. Chandler. There is no PE. There is some mild increase fluid attenuation adjacent to her breast implants. Incidental findings noted otherwise including within the liver. Patient re-evaluated. She has minimal improvement of her pain. We discuss shared decision pathway and the patient would like to be admitted for observation. She is fearful of going home at this time. She has no improvement of her chest pain and I do feel this is reasonable. 12:10 p.m. Case discussed with hospitalist Brooke Garcia. Patient will be admitted to Dr. Shyam Foster. She is admitted stable condition. EKG interpretation: Dr. Betancur SUPERVISION: Patient was independently examined, but I discussed the case with my secondary supervising physician Dr. Betancur CONSULTATION: Hospitalist admission - Diagnostics EKG: I reviewed patient's EKG. See [address] system for interpretation Imaging: I viewed and interpreted images myself - History History Review: I reviewed the patient's medical records, I obtained additional history from the patient's family Smoking Status: Former smoker - Objective Vital Signs: Initial Vital Signs Temperature (C) 98.2 F 07/28/18 09:44 Heart Rate 88 07/28/18 09:44 Respiratory Rate 20 07/28/18 09:44 Blood Pressure 120/97 H 07/28/18 09:44 O2 Sat (%) 97 07/28/18 09:44 O2 Delivery Mode Room Air Allergies/Adverse Reactions: ciprofloxacin Allergy (Unknown, Unverified 06/25/18 12:23) Vomiting dexamethasone Allergy (Unknown, Unverified 06/25/18 12:23) Itching swelling Lsulqoa-Psn-Ajz Reductase Inhibitor [Xtlhmtk-Lhi-Irx Reductase Inhibitors] Allergy (Unknown, Unverified 06/25/18 12:23) muscle pain weakness azithromycin Allergy (Verified 06/12/18 12:00) Vomiting clindamycin Allergy (Verified 06/12/18 12:00) caused C DIFF x 2 dexamethasone sod phosphate [From Decadron] Allergy (Verified 06/12/18 12:00) itching & swelling Macrolide Antibiotics Allergy (Verified 06/12/18 12:00) Vomiting Penicillins Allergy (Verified 06/12/18 12:00) Vomiting Quinolones Allergy (Verified 06/12/18 12:00) Vomiting dexamethasone sod phosphate Allergy (Unknown, Uncoded 06/25/18 12:23) itching swelling Home Medications: Medication Instructions Recorded Albuterol [Proventil Inhaler HFA 1 - 2 puffs IH Q4H PRN 06/12/18 (*)] Amitriptyline HCl [Elavil 50 mg 50 mg PO HS 06/12/18 (*)] Esomeprazole Magnesium [Nexium 20 mg PO DAILY 06/12/18 24Hr] FLUoxetine [Prozac 20 MG (*)] 20 mg PO DAILY 06/12/18 Orphenadrine Citrate [Norflex 100 100 mg PO HS 06/12/18 mg (*)] celeCOXIB [Celebrex (*)] 200 mg PO DAILY 06/21/18 Diazepam [Valium 5 MG (*)] 5 mg PO Q6HRS PRN #20 tab 06/23/18 Cephalexin [Keflex (*)] 500 mg PO Q6HRS cap 06/25/18 Furosemide [Lasix 40 MG (*)] 40 mg PO DAILY 07/07/18 Levothyroxine [Synthroid 150 mcg 150 mcg PO DAILY06 07/07/18 (*)] Potassium Chloride [Klor-Con 10] 10 meq PO DAILY 07/07/18 Pregabalin [Lyrica 150mg (*)] 150 mg PO BID 07/07/18 Laboratory Results: Laboratory Results 07/28/18 09:53 07/28/18 07/28/18 07/28/18 09:55 09:53 09:53 WBC RBC Hgb Hct MCV MCH MCHC RDW Plt Count MPV Neut % (Auto) Lymph % (Auto) Grand % (Auto) Eos % (Auto) Baso % (Auto) Nucleat RBC Rel Count Absolute Neuts (auto) Absolute Lymphs (auto) Absolute Monos (auto) Absolute Eos (auto) Absolute Basos (auto) Absolute Nucleated RBC Immature Gran % Immature Gran # PT Pending INR Pending APTT Pending D-Dimer Pending Sodium Pending Potassium Pending Chloride Pending Carbon Dioxide Pending Anion Gap Pending BUN Pending Creatinine Pending Estimated GFR Pending Glucose Pending Calcium Pending POC Troponin I 0.01 ng/mL ng/mL (0.00-0.08) Lipase Pending 07/28/18 09:53 WBC 4.92 10^3/uL 10^3/uL (3.80-9.50) RBC 4.40 10^6/uL 10^6/uL (4.18-5.33) Hgb 13.1 g/dL g/dL (12.6-16.3) Hct 39.0 % % (38.0-47.0) MCV 88.6 fL fL (81.5-99.8) MCH 29.8 pg pg (27.9-34.1) MCHC 33.6 g/dL g/dL (32.4-36.7) RDW 12.9 % % (11.5-15.2) Plt Count 211 10^3/uL 10^3/uL (150-400) MPV 10.0 fL fL (8.7-11.7) Neut % (Auto) 57.2 % % (39.3-74.2) Lymph % (Auto) 25.2 % % (15.0-45.0) Grand % (Auto) 7.1 % % (4.5-13.0) Eos % (Auto) 9.3 % H % (0.6-7.6) Baso % (Auto) 1.0 % % (0.3-1.7) Nucleat RBC Rel Count 0.0 % % (0.0-0.2) Absolute Neuts (auto) 2.81 10^3/uL 10^3/uL (1.70-6.50) Absolute Lymphs (auto) 1.24 10^3/uL 10^3/uL (1.00-3.00) Absolute Monos (auto) 0.35 10^3/uL 10^3/uL (0.30-0.80) Absolute Eos (auto) 0.46 10^3/uL H 10^3/uL (0.03-0.40) Absolute Basos (auto) 0.05 10^3/uL 10^3/uL (0.02-0.10) Absolute Nucleated RBC 0.00 10^3/uL 10^3/uL (0-0.01) Immature Gran % 0.2 % % (0.0-1.1) Immature Gran # 0.01 10^3/uL 10^3/uL (0.00-0.10) PT INR APTT D-Dimer Sodium Potassium Chloride Carbon Dioxide Anion Gap BUN Creatinine Estimated GFR Glucose Calcium POC Troponin I Lipase Point of Care Test Results: Chemistry 07/28/18 09:55 POC Troponin I 0.01 ng/mL ng/mL (0.00-0.08) Departure - Departure Disposition: [facility] Inpatient Acute Clinical Impression: Acute chest pain Condition: Good Referrals: Thony Freedman MD [Primary Care Provider] - As per Instructions
[2018-07-28 10:17] LABS: INR 0.89 (0.83-1.16); PROTIME(PATIENT) 12.3 SEC (12.0-15.0)
[2018-07-28] MEDS ORDERED: NS 1,000 ML IV ONE (10:30)
[2018-07-28] MEDS ORDERED: MAG HYDROX/AL HYDROX/SIMETH 30 ML UDCUP PO ONE (10:34)
[2018-07-28] MEDS ORDERED: HYOSCYAMINE SULFATE 0.125 MG TAB PO ONE (10:34)
[2018-07-28] MEDS ORDERED: LIDOCAINE 2% VISCOUS 15 ML UDCUP PO ONE (10:34)
[2018-07-28] MEDS ORDERED: LORazepam 2 MG/ML INJ IVP ONE (10:47)
[2018-07-28] MEDS ORDERED: IOPAMIDOL (ISOVUE 370) 100 ML BTL IV ONE (10:48)
[2018-07-28] MEDS ORDERED: ALBUTEROL 60 PUFFS/8 GM MDI IH PRN (13:09)
[2018-07-28] MEDS ORDERED: DIAZEPAM 5 MG TAB PO PRN (13:09)
[2018-07-28] MEDS ORDERED: ALPRAZolam 0.5 MG TAB PO PRN (13:09)
[2018-07-28] MEDS: PANTOPRAZOLE SODIUM 40 MG VIAL IVP SCH (13:55)
--- NOTE | 2018-07-28 14:17 | CPEKG ---
Test Reason : OPEN Blood Pressure : / mmHG Vent. Rate : 081 BPM Atrial Rate : 081 BPM P-R Int : 171 ms QRS Dur : 086 ms QT Int : 384 ms P-R-T Axes : 053 -21 044 degrees QTc Int : 446 ms Sinus rhythm Borderline left axis deviation Low voltage, precordial leads Consider anterior infarct Confirmed by Laorn Betancur ([id number]) on 07/28/2018 2:17:14 PM Referred By: Confirmed By:Laron Betancur
--- NOTE | 2018-07-28 14:30 | GHP ---
DATE OF ADMISSION: 07/28/2018 CHIEF COMPLAINT: Chest pain. HISTORY OF PRESENT ILLNESS: This is a 62-year-old female with a recent diagnosis of breast cancer, D CIS, status post bilateral mastectomy. She was admitted here for chest pain about 3 weeks ago. At t hat time, she had a negative nuclear stress test. She presents today after having this severe episod e of chest pain. This started about half an hour before she presented to the ED. Described as subst ernal, quite deep. She has also had significant weakness recently. Unclear, if her chest pain is ex ertional. It was improved with GI cocktail in the ED, as well as Ativan. She received morphine as w ell, which helped with the pain. She notes that she has some chest wall pain; however she describes this pain is different. PAST MEDICAL/SURGICAL HISTORY: 1. Atrial fibrillation perioperatively. 2. Ductal ifscyxtil-ky-heiv, status post bilateral mastectomy, as well as breast reconstruction. 3. GERD. 4. History of migraines. MEDICATIONS: Please see medication reconciliation. ALLERGIES: She has multiple allergies, including ciprofloxacin, dexamethasone, statins, azithromycin , clindamycin, macrolides, penicillins, quinolones. FAMILY HISTORY: Her mother had bladder cancer. SOCIAL HISTORY: She has quit smoking. She is . She does not drink or use any other illegal drugs. REVIEW OF SYSTEMS: A 10-point review of systems is conducted and is negative, except per HPI. PHYSICAL EXAM: VITAL SIGNS: Blood pressure 99/71, heart rate 80, respiration rate 17 saturating 97% on 2 L. Temperature 36.8, GENERAL: The patient is a pleasant female who appears somewhat uncomfort able, in no acute distress. HEENT: Shows her to be normocephalic, atraumatic. CARDIOVASCULAR: Reg ular rate and rhythm. No murmurs, rubs, or gallops. She has trace bilateral lower extremity edema. CHEST: Shows her to have the status post bilateral mastectomy. She has no significant erythema or purulence from her wounds. She is tender to palpation somewhat diffusely throughout her anterior per st: PULMONARY: Lungs clear to auscultation bilaterally. ABDOMEN: Soft, nontender, nondistended. SKIN: No rash. : No Sheridan. NEUROLOGIC: Shows her to be alert and oriented x3. She is moving a ll extremities. PSYCHIATRIC: Exam shows normal mood and affect. LABS: CBC is normal. D-dimer 2.4. Basic metabolic panel is normal. Troponin is negative. Lipase is negative. DATA: 1. Discussed with both Dr. Sabillon, as well as Dr. Freedman. Dr. Sabillon will consult, and Dr. Anthony nichols will review her CT scan. 2. CT angiogram of her chest is negative for PE. It does show some increased fluid surrounding her breast prostheses, possible hepatic cysts. 3. ECG, which I personally viewed and interpreted, shows sinus rhythm. She does not have any ST ebony nges. IMPRESSION/PLAN: 1. Chest pain and weakness: Suspect that this is more related to her recent diagnosis, than due to any a cardiac issue. Regardless, Dr. Sabillon will consult. We will trend troponins. I note that s he had a negative nuclear stress about 3 weeks ago. I have also discussed with this with Dr. Becki ramires, he will review her CT scan to make sure that this does not appear infectious to him, though clinic ally, it does not. Will also empirically start her on Protonix for possible gastrointestinal issue. 2. Ductal tlyimrile-vb-ogvp: She is status post bilateral mastectomy, there are no plans for chemo or radiation given the diagnosis. 3. Hepatic cysts: This could be followed by her oncologist as an outpatient. /[id number]/MODL
--- NOTE | 2018-07-28 14:39 | ASMTCMCOM ---
CM Note CM Note Notes: Chart reviewed for discharge planning purposes. Patient admited via ED with c/o chest pain. Cardiac workup negative so far. Recent bilateral mastectomies. Lives indepednetnly with . Had [facility] previously. CM to follow for needs. Plan: TBD Date Signed: 07/28/2018 02:39 PM Electronically Signed By:Marsha Cheatham RN
[2018-07-28] MEDS: traMADol 50 MG TAB PO PRN (19:26)
--- NOTE | 2018-07-28 20:42 | GCON ---
CARDIOLOGY CONSULTATION DATE OF CONSULTATION: 07/28/2018 REQUESTING PHYSICIAN: Dr. Earl Foster. REASON FOR CONSULTATION: Chest pain and dyspnea. HISTORY: The patient is a 62-year-old woman with no prior cardiac history. She underwent a bilatera l mastectomy for ductal carcinoma in situ on June 21. She has had issues with chest discomfort, f atigue, and dyspnea. She was readmitted to the hospital on July 08. She ruled out for an acute coronary syndrome at that time. She underwent a Lexiscan nuclear stress test, which demonstrated nor mal myocardial perfusion without evidence of ischemia or infarction. She said she had been feeling somewhat better, but over the past 2 days while out taking care of some shopping, she began to notice progressively worsening fatigue and shortness of breath. This morning , she developed some recurrent chest discomfort with both tight and sharp components. This was also associated with some shortness of breath. She feels she has become progressively weaker since her baldwin rgery. PAST MEDICAL HISTORY: As mentioned, she has no prior cardiac history. She also underwent a nuclear stress test in 2015 for complaints of chest pain and shortness of breath. That study was also normal . She has her history of breast cancer with recent mastectomies. Her medical history also includes hypothyroidism, obesity, migraines, fibromyalgia, depression, and hyperlipidemia. FAMILY HISTORY: She has a younger brother who sustained a myocardial infarction. MEDICATIONS: Her home medications consist of albuterol, Xanax, amitriptyline, aspirin, Celebrex, Rebeca ium, Prozac, Synthroid, morphine, Norflex, Protonix, Lyrica, and tramadol. Her dosages are detailed in the electronic record. ALLERGIES: She reports allergies or intolerances to ciprofloxacin, dexamethasone, statins, clindamyc in, and penicillin. SOCIAL HISTORY: She is accompanied to the hospital by her . She previously smoked less than half a pack of cigarettes per day. She quit approximately 1 year ago. REVIEW OF SYSTEMS: Notable for the items outlined in history of present illness. Otherwise, a 10-po int review was negative. PHYSICAL EXAMINATION: VITAL SIGNS: Heart rate 75 with sinus rhythm on monitor. Blood pressure 148/ 89. O2 saturation 98% on 2 L/minute by nasal cannula. GENERAL: This is an obese, middle-aged woman who does not appear to be in any distress. She is lying on her side in bed. Her affect is relative ly flat. HEAD AND NECK: No scleral icterus. Mucous membranes moist. Carotid pulses 2+ without bru its. There is no JVD. CHEST: Lung hernandez clear to auscultation. CARDIAC: Regular rate and rhythm with a normal S1 and S2. There is no murmur or gallop. ABDOMEN: Obese, soft, nontender, without m asses. Normal bowel sounds. EXTREMITIES: 2+ pulses and no peripheral edema. ECG: Her ECG demonstrates normal sinus rhythm. She has possible Q-waves in leads III and AVF. No a cute ischemic changes. LABORATORY STUDIES: Her CBC is normal. Her electrolytes and renal function are also normal. Her in itial troponin is normal at 0.01. IMPRESSION: This is a 62-year-old woman with cardiac risk factors of obesity, hyperlipidemia, and fa dash history. She presents with somewhat atypical chest discomfort. She has had recent bilateral ma stectomies. Her pain could also be related to her diagnosis of fibromyalgia. She ruled out for an a cute coronary syndrome during a similar presentation last month. At that time, her nuclear stress te st was normal. Her current EKG does not demonstrate any ischemic findings and her 1st troponin is no rmal. PLAN: The patient has been placed on PCU for observation. Serial troponins will be obtained. An ec hocardiogram has been requested for tomorrow morning. Pending review of her echocardiogram and subse quent troponins, consideration will need to be given as to whether or not to pursue additional cardia c testing. While I feel that a cardiac catheterization is likely to be low yield, the information ob tained could be useful in managing her situation going forward as I expect there will be recurrent is sues with chest discomfort. /[id number]/MODL
[2018-07-28] MEDS: PREGABALIN 150 MG CAP PO SCH (21:45)
[2018-07-28] MEDS: ORPHENADRINE CITRATE 100 MG EXT REL TAB PO SCH (21:45)
[2018-07-28] MEDS: AMITRIPTYLINE HCL 50 MG TAB PO SCH (21:45)
[2018-07-29] MEDS: LEVOTHYROXINE 100 MCG TAB PO SCH (05:48)
[2018-07-29] MEDS ORDERED: COSYNTROPIN 0.25 MG/2 ML SYRINGE IVP ONE (06:00)
[2018-07-29] MEDS: traMADol 50 MG TAB PO PRN (07:39)
[2018-07-29] MEDS: MAGNESIUM OXIDE 400 MG TAB PO SCH (07:40)
[2018-07-29] MEDS: ASPIRIN 81 MG CHEWABLE TAB PO SCH (07:41)
[2018-07-29] MEDS: PREGABALIN 150 MG CAP PO SCH ×2 (07:41→21:13)
[2018-07-29] MEDS: FLUoxetine 20 MG CAP PO SCH (07:41)
[2018-07-29] MEDS: PANTOPRAZOLE SODIUM 40 MG VIAL IVP SCH (07:42)
[2018-07-29] MEDS: PHENTERMINE HCL PO SCH (07:58)
[2018-07-29] MEDS ORDERED: ESOMEPRAZOLE MAGNESIUM 40 MG PO SCH (09:00)
[2018-07-29] MEDS: HYDROCODONE/APAP 5/325 TAB PO PRN ×3 (09:22→21:12)
[2018-07-29] MEDS ORDERED: MAGNESIUM HYDROXIDE 30 ML UDCUP PO PRN (11:25)
[2018-07-29] MEDS ORDERED: LACTULOSE 20 GM/30 ML UDCUP PO PRN (11:25)
[2018-07-29] MEDS ORDERED: POLYETHYLENE GLYCOL 3350 17 GM PKT PO PRN (11:25)
[2018-07-29] MEDS ORDERED: BISACODYL 10 MG SUPP PR PRN (11:25)
--- NOTE | 2018-07-29 12:56 | PDCARPN ---
Cardiology Progress Note Chief Complaint: Chest pain and Dyspnea Assessment/Plan: Assessment: 1. Chest pain with associated Dyspnea. She is S/P bilateral mastectomies due to diagnosis of Ductal Carcinoma. Since that times she was admitted to the hospital 07/08/18 for chest pain SOB, and increasing fatigue. She had a Negative Nuclear stress test during that hospitalization. 07/28 she again presented to the ER for Dyspnea, Chest pain and increasing weakness. Troponin jensen been negative x3. Echocardiogram was done to evaluate for any significant findings. Plan: No further testing is necessary at this time. Consideration could be given to have a cardiac angiogram if symptoms persist, as she does have a Family history of CAD. 07/29/18 12:49 Subjective: I have been NPO this morning and I am hungry. No chest pain or SOB at this time. Reviewed/Discussed With: family, hospitalist, multidisciplinary team Objective: Vital Signs (8 Hrs) Temp Pulse Resp BP Pulse Ox 07/29/18 11:46 36.6 C 81 16 119/75 93 07/29/18 07:20 36.8 C 81 18 134/76 H 97 Intake/Output (24 Hrs) 07/28/18 07/29/18 07/30/18 05:59 05:59 05:59 Intake Total 1800 Balance 1800 Intake: Oral (ml) 800 IV Infused (ml) 1000 Other: Weight 118.9 kg Number of Voids Toilet 4 Result Diagrams: 07/28/18 09:53 07/28/18 09:53 Cardiac Labs: Cardiac Lab Results (72 Hrs) 07/29/18 07/28/18 01:30 19:25 Troponin I < 0.012 < 0.012 - Physical Exam Constitutional: obese, No apparent distress Cardiovascular: regular rate and rhythm, no murmurs, no rubs, no gallops Peripheral Pulses: 2+: dorsalis-pedis (R), dorsalis-pedis (L) Respiratory: clear to auscultate bilat, no wheezes, No expiratory wheeze, No inspiratory crackles, No bronchial breath sounds Skin: warm, no edema Neurologic: AAOx3 Psychiatric: cooperative, interactive ICD10 Worksheet Patient Problems: Problems Problem Status Onset Acute chest pain Acute Breast cancer Acute Chest pain Acute
--- NOTE | 2018-07-29 13:15 | ECHO ---
[email or web address] [address] [address] Main: [phone] Fax: Transthoracic Echocardiogram Name: HANANE SCHUMACHER MR#: [id number] Study Date: 07/29/2018 Study Time: 08:18 AM Date of : 1955 Age: 62 year(s) Height: 170.2 cm (67 in.) Weight: 118.84 kg (262 lb.) BSA: 2.27 m2 Gender: Female Examination: Echo Indication: Chest pain/dyspnea/recent bilat mastectomy Image Quality: Technically Difficult Contrast: Requested by: Sincere Sabillon BP: 134 mmHg/76 mmHg Heart Rate: Rhythm: Indication: Chest pain/dyspnea/recent bilat mastectomy Procedure Staff Adult Probation Officer: Stefanie Choi RDCS Reading Physician: Isaac Arevalo MD Requesting Provider: Conclusions: Normal size left ventricle. No LV hypertrophy. Normal global systolic LV function. The ejection fraction is estimated to be 60-65 %. No regional wall motion abnormality. Normal RV function. The pulmonary artery pressure is normal. No pericardial effusion. Measurements: Chambers Valvular Assessment AV/MV Valvular Assessment TV/PV Normal Normal Normal Name Value Range Name Value Range Name Value Range Ao Eli (MM): 3.3 cm (2.2 cm-3.7 AV Vmax: 1.17 m/s (1 m/s-1.7 TR Vmax: 2.28 mm/s ( - ) cm) m/s) TR PGmax: 21 mmHg ( - ) LVDd (2D): 4.4 cm (3.9 cm-5.3 AV meanP mmHg ( - ) syst. PAP: 26 mmHg ( - ) cm) MV E Vmax: 0.70 m/s ( - ) EF Range: 60-65 % MV A Vmax: 0.67 m/s ( - ) MV E/A: 1.04 ( - ) Continued Measurements: Chambers Valvular Assessment AV/MV Valvular Assessment TV/PV Name Value Name Value Name Value LADs: 3.8 cm MV E' Septal: 0.08 m/s CVP (est.): 5 mmHg MV E/E' Septal: 8.40 MV E/E' Lateral: 7.40 Additional Vessels Patient: HANANE SCHUMACHER Study Date: 07/29/2018 Page 1 of 2 08:18 AM Name Value Ao Ascendin.1 cm Findings: Left Ventricle: Normal size left ventricle. No LV hypertrophy. Normal global systolic LV function. The ejection fraction is estimated to be 60-65 %. No regional wall motion abnormality. Right Ventricle: Normal size right ventricle. Normal RV function. Left Atrium: The left atrium is normal in size. Right Atrium: The right atrium is normal in size. Mitral Valve: The mitral valve is normal in appearance and function. Mild mitral valve regurgitation is present. Aortic Valve: The aortic valve is normal in appearance and function. The aortic valve is tri-leaflet. Tricuspid Valve: The tricuspid valve is normal in appearance and function. Mild tricuspid regurgitation is present. The pulmonary artery pressure is normal. Pulmonic Valve: The pulmonic valve is normal in appearance and function. Aorta: The aorta is normal. Pericardium: No pericardial effusion. There is pericardial fat. (No Signature Object) Patient: HANANE SCHUMACHER Study Date: 07/29/2018 Page 2 of 2 08:18 AM [id number]
[2018-07-29] MEDS: MULTIVITAMINS 1 EACH TAB PO SCH (13:26)
[2018-07-29] MEDS: BACITRACIN OINTMENT 1 PACKET TP PRN ×2 (13:34→21:13)
[2018-07-29] MEDS ORDERED: LORazepam 1 MG TAB PO PRN (14:17)
--- NOTE | 2018-07-29 14:21 | HOSPPROG ---
Hospitalist Progress Note Assessment/Plan: # chest pain - echo ok; no further w/u per cards - suspect this is fibromyalgia or msk d/t recent breast surgery # weakness - cortisol low - discussed with Dr Napoles - he does not feel this is diagnostic - will check cortstim in am - check brain MRI # DCIS - recent bilat mastectomy, currently undergoing reconstruction # hepatic cysts - outpatient f/u Subjective: still feels very weak; ELLISON was severe this am Objective: Vital Signs Temp Pulse Resp BP Pulse Ox 36.6 C 81 16 119/75 93 07/29/18 11:46 07/29/18 11:46 07/29/18 11:46 07/29/18 11:46 07/29/18 11:46 07/28/18 07/29/18 07/30/18 05:59 05:59 05:59 Intake Total 1800 Balance 1800 PT 12.3 SEC (12.0-15.0) 07/28/18 09:53 INR 0.89 (0.83-1.16) 07/28/18 09:53 - Physical Exam Constitutional: chronically ill appearing, uncomfortable Eyes: anicteric sclera Ears, Nose, Mouth, Throat: hearing normal Cardiovascular: No edema Respiratory: no respiratory distress Gastrointestinal: No distension Genitourinary: No snell in urethra Skin: warm Musculoskeletal: full muscle strength Neurologic: AAOx3 Psychiatric: not anxious ICD10 Worksheet Patient Problems: Problems Problem Status Onset Acute chest pain Acute Breast cancer Acute Chest pain Acute
[2018-07-29] MEDS: ORPHENADRINE CITRATE 100 MG EXT REL TAB PO SCH (21:13)
[2018-07-29] MEDS: AMITRIPTYLINE HCL 50 MG TAB PO SCH (21:13)
[2018-07-29] MEDS: SENNOSIDES/DOCUSATE SODIUM TAB PO SCH (21:13)
[2018-07-30] MEDS ORDERED: COSYNTROPIN 0.25 MG/2 ML SYRINGE IVP ONE (06:00)
[2018-07-30] MEDS: LEVOTHYROXINE 100 MCG TAB PO SCH (06:02)
[2018-07-30] MEDS: MAGNESIUM OXIDE 400 MG TAB PO SCH (08:06)
[2018-07-30] MEDS: SENNOSIDES/DOCUSATE SODIUM TAB PO SCH (08:06)
[2018-07-30] MEDS: PREGABALIN 150 MG CAP PO SCH (08:06)
[2018-07-30] MEDS: ASPIRIN 81 MG CHEWABLE TAB PO SCH (08:06)
[2018-07-30] MEDS: FLUoxetine 20 MG CAP PO SCH (08:06)
[2018-07-30] MEDS: PHENTERMINE HCL PO SCH (08:40)
[2018-07-30] MEDS: PANTOPRAZOLE SODIUM 40 MG VIAL IVP SCH (08:46)
[2018-07-30] MEDS: MULTIVITAMINS 1 EACH TAB PO SCH (08:46)
--- NOTE | 2018-07-30 09:43 | HOSPPROG ---
Hospitalist Progress Note Assessment/Plan: 62-year-old status post recent bilateral mastectomy secondary to DCIS. She is readmitted with chest pain. Evaluation has been unremarkable. # chest pain, negative workup. Likely no cardiac cause for this I suspect it may be musculoskeletal due to recent breast surgery or exacerbation of her fibromyalgia. Patient reassured and will continue a PPI on discharge # weakness, likely normal Cortrosyn stim test with increase of +13. I suspect her weakness is exacerbation of her fibromyalgia. Continue physical therapy patient's requests home care on discharge * Will discuss with case management regarding home care # DCIS, status post mastectomy will not need further chemo or radiation # hepatic cysts, follow up as outpatient Subjective: Patient new to ri and chart reviewed. Complains of some mild anterior chest pain otherwise main complaint is fatigue and weakness. Objective: Vital Signs Temp Pulse Resp BP Pulse Ox 36.9 C 86 18 131/70 H 93 07/30/18 07:45 07/30/18 07:45 07/30/18 07:45 07/30/18 07:45 07/30/18 07:45 07/29/18 07/30/18 07/31/18 05:59 05:59 05:59 Intake Total 1800 700 Balance 1800 700 PT 12.3 SEC (12.0-15.0) 07/28/18 09:53 INR 0.89 (0.83-1.16) 07/28/18 09:53 - Physical Exam Constitutional: obese Eyes: PERRL, EOMI Ears, Nose, Mouth, Throat: moist mucous membranes Cardiovascular: regular rate and rhythym Respiratory: no respiratory distress, clear to auscultation Gastrointestinal: normoactive bowel sounds Skin: warm, other (Recent mastectomy healing well status post expanders) Musculoskeletal: generalized weakness Neurologic: AAOx3 Psychiatric: interacting appropriately ICD10 Worksheet Patient Problems: Problems Problem Status Onset Breast cancer Acute Chest pain Acute Acute chest pain Acute
--- NOTE | 2018-07-30 11:37 | PDIAF ---
- Diagnosis Diagnosis: chest pain, fatigue, breast cancer, bilateral mastectomy, abnormal gait. Code Status: Full Code - Medication Management Discharge Medications: electronically signed and located in the Home Medication List. - Orders Services needed: Home Care, Registered Nurse, Physical Therapy, Occupational Therapy Home Care Face to Face: I certify that this patient was under my care and that I had the required [id number] encounter meeting the encounter requirements on the discharge day. My findings support the fact that the patient is homebound as defined in Home Care Face to Face Continued: CMS Chapter 7 Medicare Benefits Manual 30.1.1 , The condition of the patient is such that there exists a normal inability to leave home and consequently, leaving home would require a considerable and taxing effort. Diet Recommendation: no restrictions on diet Diet Texture: Regular Texture Diet Additional Instructions: Follow up with PCP in 1 week - Follow Up Care Current Providers and Referrals: Thony Freedman MD [Primary Care Provider] - As per Instructions
[2018-07-30 11:50] VITALS: BP 114/60
--- NOTE | 2018-07-30 15:24 | GDS ---
DIAGNOSES: 1. Chest pain, unclear etiology. Negative echo. 2. Atrial fibrillation perioperatively, currently in sinus rhythm. 3. Ductal carcinoma in situ, status post bilateral mastectomy, as well as breast reconstruction. 4. Gastroesophageal reflux disease. 5. Fibromyalgia. 6. History of migraines. 7. History of hepatic cysts. Needs outpatient followup. PROCEDURES DONE: 1. CT angiogram of the chest negative for pulmonary embolic disease. Increased fluid surrounding br east prosthesis, more pronounced on the right. Suspect small hepatic cysts. Could consider outpatie nt ultrasound. 2. Echocardiogram. Normal size left ventricle with no LV hypertrophy, normal global systolic LV fun ction with an EF of 60% to 65%. No pericardial effusion. CONSULTATIONS: Cardiology, Dr. Sincere Sabillon. HOSPITAL COURSE: The patient is a 62-year-old, initially admitted with chest pain. Evaluation inclu ded the above procedures. Additionally, she was previously admitted and had a nuclear stress test don e 3 weeks ago, which was negative for ischemia. Her main complaint currently on discharge is fatigue . She had a Cortrosyn stim test done here in the hospital, which was normal. I suspect her fatigue and chest pain may be an exacerbation of her fibromyalgia given her recent surgery and stress. At th e time of discharge, she is comfortable and will be going home with home care. CONDITION ON DISCHARGE: Good. VITAL SIGNS: She is afebrile. Heart rate 87, blood pressure 114/60. She is 93% on room air. GENERAL: She is alert and oriented. HEART: Regular. LUNGS: Clear. DISCHARGE MEDICATIONS: Please see discharge medication form. FOLLOWUP: She will follow up with her plastic surgeon and surgeon as needed. Follow up with her PCP this week. Total time spent with the patient on day of discharge and coordination of care is 35 minutes. /[id number]/MODL
--- NOTE | 2018-07-30 21:26 | ASDISCHSUM ---
Discharge Information Plan Status:Home with Home Health Medically Cleared to Leave:07/29/2018 Discharge Date:07/29/2018 D/C Disposition:Home Health Service ADT D/C Disposition:Home, Routine, Self-Care Projected Discharge Date:07/30/2018 11:00 AM Transportation at D/C:Family Discharge Delay Reason: Follow-Up Date:07/30/2018 11:00 AM Discharge Slot: Final Diagnosis: Placement Information Referral Type:*Home Health Care Services Referral ID:[id number] Provider Name:[facility] Address 1:[address] [place] [address] Address 2: City:[place] Selection Factors: State:[place] Patient Contact Information Contact Name:PROSPERJOE Relationship: Address:[address] City:[place] Phone: State/Zip Code:[place] [address] Email: Financial Information Financial Class:BCOP Primary Plan Desc:BC OUT OF STATE [facility] Primary Plan Number:[id number] Secondary Plan Desc: Secondary Plan Number: Assessment Information LACE LACE Length of stay for Answers: Less than 1 day current admission Acuity / Level of Answers: No Care: Did the patient have an inpatient admission? Comorbidities - select Answers: Any tumor (including all that apply lymphoma or leukemia) Other Notes: AFib # of Emergency department Answers: 3-4 visits in the last 6 months Score: 6 Date Signed: 07/30/2018 11:58 AM Electronically Signed By:Cleo Wahl RN [facility] CM Progress Note CM Note CM Note Notes: Chart reviewed for discharge planning purposes. Patient admited via ED with c/o chest pain. Cardiac workup negative so far. Recent bilateral mastectomies. Lives indepednetnly with . Had HC previously. CM to follow for needs. Plan: TBD Date Signed: 07/28/2018 02:39 PM Electronically Signed By:Marsha Cheatham RN Case Management Discharge Plan Note Case Management Discharge Discharge Order Complete? Answers: Yes Patient to Obtain Answers: via Family Medications Transportation Arranged Answers: Family/Friends Faxed Final Orders Answers: Yes Notes: to [facility] Agency/Facility Transfer Answers: Yes Notes: to [facility] Report Printed & Faxed to Receiving Agency Family Notified Answers: Yes Notes: in room Discharge Comments Notes: 07/30/2018 Case Management Note Pt admitted to hospital for chest pain. Pt requested [facility]. Arranged [facility] home care. Faxed final orders. to transport home. Pt onboarding specialist is Dr. Chang Case Management d/c poc: [facility] PT Date Signed: 07/30/2018 12:01 PM Electronically Signed By:Cleo Wahl RN Intervention Information
--- NOTE | 2018-07-30 21:30 | ASMTDCNOTE ---
Case Management Discharge Discharge Order Complete? Answers: Yes Patient to Obtain Answers: via Family Medications Transportation Arranged Answers: Family/Friends Faxed Final Orders Answers: Yes Notes: to [facility] Agency/Facility Transfer Answers: Yes Notes: to [facility] Report Printed & Faxed to Receiving Agency Family Notified Answers: Yes Notes: in room Discharge Comments Notes: 07/30/2018 Case Management Note Pt admitted to hospital for chest pain. Pt requested [facility]. Arranged [facility] home care. Faxed final orders. to transport home. Pt blow pit helper is Dr. Chang Case Management d/c poc: [facility] RN PT Date Signed: 07/30/2018 12:01 PM Electronically Signed By:Cleo Wahl RN
--- NOTE | 2018-07-30 21:30 | ASMTLACE ---
LACE Length of stay for Answers: Less than 1 day current admission Acuity / Level of Answers: No Care: Did the patient have an inpatient admission? Comorbidities - select Answers: Any tumor (including all that apply lymphoma or leukemia) Other Notes: AFib # of Emergency department Answers: 3-4 visits in the last 6 months Score: 6 Date Signed: 07/30/2018 11:58 AM Electronically Signed By:Cleo Wahl RN
--- NOTE | 2018-07-31 05:49 | CPEKG ---
Test Reason : OPEN Blood Pressure : / mmHG Vent. Rate : 081 BPM Atrial Rate : 081 BPM P-R Int : 171 ms QRS Dur : 086 ms QT Int : 384 ms P-R-T Axes : 053 -21 044 degrees QTc Int : 446 ms Sinus rhythm Borderline left axis deviation Poor R wave progression anterior leads Confirmed by Shashank Harris ([id number]) on 07/31/2018 5:49:18 AM Referred By: Confirmed By:Shashank Harris
== END 2018-07-30 12:50 | disposition home or self-care (01) ==
LOC: F2W 12:55
PROVIDERS: ADMIT Student in an Organized Health Care Education/Training Program; ATTEND Internal Medicine
DX: R07.89 Other chest pain (principal); R06.00 Dyspnea, unspecified; I48.91 Unspecified atrial fibrillation; E03.9 Hypothyroidism, unspecified; K21.9 Gastro-esophageal reflux disease without esophagitis; M79.7 Fibromyalgia; D05.90 Unspecified type of carcinoma in situ of unspecified breast; Z98.82 Breast implant status; Z87.891 Personal history of nicotine dependence; K76.89 Other specified diseases of liver
CPT/HCPCS: 71045; 71275; 93005; 93306; 96361; 96374; 96375; 96376; 99285; G0378; 84484-PO; J0834; J2060; J2270; J2405; Q9967

== ENCOUNTER 2018-09-21 18:56 | Inpatient (IN) | payer OTHER ==
--- NOTE | 2018-09-21 19:35 | EDPHY ---
HPI/HX/ROS/PE/MDM Narrative: CHIEF COMPLAINT: Hypotension, hypoxemia, pain HISTORY OF PRESENT ILLNESS: The patient is a 63 y/o female with a history of breast cancer with her most recent reconstruction surgery yesterday complaining of hypotension, hypoxemia, and pain. She was discharged yesterday after outpatient surgery with oxycodone and ibuprofen for pain. She has been resting since then, getting up to walk every few hours. Last night, she was hypoxemic to 61%. She has continued to be hypoxemic and the also reported a low blood pressure (70s systolic). She reports a lot of pain. She has associated headache and dizziness. She denies fever, nausea, vomiting, diarrhea, or chest pain. She denies history of clots. Her mother has multiple DVTs. No fever, chest pain, palpitations, vomiting, diarrhea, urinary complaints. REVIEW OF SYSTEMS: A comprehensive 10 system review of systems is otherwise negative aside from elements mentioned in the history of present illness and medical decision making PAST MEDICAL HISTORY: Breast cancer with reconstruction. The patient reports that her 2 prior surgeries, she has been sent home with supplemental oxygen postop. SOCIAL HISTORY: at bedside, lives in [place], retired VITAL SIGNS: Reviewed by me GENERAL: Overweight, hypoxic on arrival, no obvious respiratory distress. Lying with her eyes closed. HEENT: Atraumatic. Eyes: No icterus, no injection. Mouth: Somewhat dry mucous membranes. No erythema or lesions. Neck: supple with no adenopathy. LUNGS: Breath sounds diminished throughout, worse on left base. No wheezes, rhonchi or rales. CARDIAC: Regular rate and rhythm, no rubs, murmurs or gallops. ABDOMEN: Soft, nontender, nondistended, bowel sounds normal. Dressings covering surgical sites on chest and abdomen; no significant erythema or discharge from the surgical sites. BACK: No CVA tenderness. EXTREMITIES: Pain to palpation bilateral lower extremities. Trace edema. No trauma. Range of motion is normal throughout. NEURO: Alert and oriented, grossly nonfocal. SKIN: Warm and dry, no rash. PSYCHIATRIC: Normal mentation, no agitation. ED Course: The patient presents with hypotension, hypoxemia, and pain. Blood pressure on arrival 113/66. She has diminished breath sounds, worse in the base of the left lung. Plan for CBC, basic metabolic panel, troponin, D-dimer, chest x-ray and EKG. CBC without leukocytosis, basic metabolic panel largely unremarkable, troponin negative. D-dimer 1.13. 8:20 PM - Her X-ray shows increased interstitial markings. EKG shows low voltage in the precordial leads. CT scan: No pulmonary embolism, bibasilar atelectasis. 9:10 PM - The patient continues to be hypoxemic. She will be admitted for further treatment. Dr. Whatley will be the admitting physician. MDM: Differential diagnoses for the patient's symptom complex was considered including but not limited to pneumonia, congestive heart failure, cardiac causes , pulmonary embolism, hypoventilation, respiratory depression secondary to opiates. - Data Points Imaging Results: Imaging Impressions Chest X-Ray 09/21/18 19:37 Impression: 1. Hypoventilation and bibasilar atelectasis. Equivocal superimposed interstitial edema. 2. Equivocal right chest wall subcutaneous emphysema. Chest/Thorax CTA 09/21/18 20:16 Impression: 1. No evidence of thrombopulmonary embolic disease. 2. Minimal interstitial edema and bibasilar atelectasis. 3. Diffuse subcutaneous emphysema secondary to breast reconstructive surgery. Imaging: Discussed imaging studies w/ faculty i on call medical assistant Radiologist, I viewed and interpreted images myself Laboratory Results: Laboratory Results 09/21/18 19:35 09/21/18 19:35 09/21/18 09/21/18 09/21/18 20:50 20:50 19:44 WBC RBC Hgb Hct MCV MCH MCHC RDW Plt Count MPV Neut % (Auto) Lymph % (Auto) Benson % (Auto) Eos % (Auto) Baso % (Auto) Nucleat RBC Rel Count Absolute Neuts (auto) Absolute Lymphs (auto) Absolute Monos (auto) Absolute Eos (auto) Absolute Basos (auto) Absolute Nucleated RBC Immature Gran % Immature Gran # D-Dimer VBG Lactic Acid 1.8 mmol/L mmol/L (0.7-2.1) Sodium Potassium Chloride Carbon Dioxide Anion Gap BUN Creatinine Estimated GFR Glucose Calcium Total Bilirubin 0.2 mg/dL mg/dL (0.1-1.4) POC Troponin I 0.00 ng/mL ng/mL (0.00-0.08) NT-Pro-B Natriuret Pep 263 pg/mL H pg/mL (0-125) 0209/21/18 09/21/18 19:35 19:35 19:35 WBC 6.31 10^3/uL 10^3/uL (3.80-9.50) RBC 4.24 10^6/uL 10^6/uL (4.18-5.33) Hgb 12.6 g/dL g/dL (12.6-16.3) Hct 39.0 % % (38.0-47.0) MCV 92.0 fL fL (81.5-99.8) MCH 29.7 pg pg (27.9-34.1) MCHC 32.3 g/dL L g/dL (32.4-36.7) RDW 13.2 % % (11.5-15.2) Plt Count 193 10^3/uL 10^3/uL (150-400) MPV 10.3 fL fL (8.7-11.7) Neut % (Auto) 78.5 % H % (39.3-74.2) Lymph % (Auto) 12.5 % L % (15.0-45.0) Benson % (Auto) 4.1 % L % (4.5-13.0) Eos % (Auto) 4.4 % % (0.6-7.6) Baso % (Auto) 0.3 % % (0.3-1.7) Nucleat RBC Rel Count 0.0 % % (0.0-0.2) Absolute Neuts (auto) 4.95 10^3/uL 10^3/uL (1.70-6.50) Absolute Lymphs (auto) 0.79 10^3/uL L 10^3/uL (1.00-3.00) Absolute Monos (auto) 0.26 10^3/uL L 10^3/uL (0.30-0.80) Absolute Eos (auto) 0.28 10^3/uL 10^3/uL (0.03-0.40) Absolute Basos (auto) 0.02 10^3/uL 10^3/uL (0.02-0.10) Absolute Nucleated RBC 0.00 10^3/uL 10^3/uL (0-0.01) Immature Gran % 0.2 % % (0.0-1.1) Immature Gran # 0.01 10^3/uL 10^3/uL (0.00-0.10) D-Dimer 1.13 ug/mLFEU H ug/mLFEU (0.00-0.50) VBG Lactic Acid Sodium 133 mEq/L L mEq/L (135-145) Potassium 4.2 mEq/L mEq/L (3.5-5.2) Chloride 103 mEq/L mEq/L (97-110) Carbon Dioxide 25 mEq/l mEq/l (22-31) Anion Gap 5 mEq/L L mEq/L (6-14) BUN 14 mg/dL mg/dL (7-23) Creatinine 1.0 mg/dL mg/dL (0.6-1.0) Estimated GFR 56 Glucose 128 mg/dL H mg/dL (70-100) Calcium 8.9 mg/dL mg/dL (8.5-10.4) Total Bilirubin POC Troponin I NT-Pro-B Natriuret Pep Medications Given: Discontinued Medications Albuterol/Ipratropium (Duoneb) 3 ml IH EDNOW ONE Stop: 09/21/18 19:37 Last Admin: 09/21/18 19:45 Dose: 3 ml Sodium Chloride (Ns) 1,000 mls @ 0 mls/hr IV ONCE ONE; Wide Open PRN Reason: Protocol Stop: 09/21/18 19:37 Last Admin: 09/21/18 19:44 Dose: 1,000 mls Point of Care Test Results: Chemistry 09/21/18 19:44 POC Troponin I 0.00 ng/mL ng/mL (0.00-0.08) General Time Seen by Provider: 09/21/18 19:14 Initial Vital Signs: Initial Vital Signs Temperature (C) 36.7 C 09/21/18 19:03 Heart Rate 102 H 09/21/18 19:03 Respiratory Rate 17 09/21/18 19:03 Blood Pressure 113/66 09/21/18 19:03 O2 Sat (%) 85 L 09/21/18 19:03 O2 Delivery Mode Nasal Cannula O2 (L/minute) 4 Allergies/Adverse Reactions: ciprofloxacin Allergy (Unknown, Verified 09/21/18 19:02) Vomiting dexamethasone Allergy (Unknown, Verified 09/21/18 19:02) Itching swelling Yxhldee-Wss-Pkv Reductase Inhibitor [Zcixubd-Lvb-Fvx Reductase Inhibitors] Allergy (Unknown, Verified 09/21/18 19:02) muscle pain weakness azithromycin Allergy (Verified 09/21/18 19:02) Vomiting clindamycin Allergy (Verified 09/21/18 19:02) caused C DIFF x 2 dexamethasone sod phosphate [From Decadron] Allergy (Verified 09/21/18 19:02) itching & swelling Macrolide Antibiotics Allergy (Verified 09/21/18 19:02) Vomiting Penicillins Allergy (Verified 09/21/18 19:02) Vomiting Quinolones Allergy (Verified 09/21/18 19:02) Vomiting dexamethasone sod phosphate Allergy (Unknown, Uncoded 07/30/18 12:16) itching swelling Home Medications: Medication Instructions Recorded Albuterol [Proventil Inhaler HFA 1 - 2 puffs IH Q4H PRN 06/12/18 (*)] Amitriptyline HCl [Elavil 50 mg 50 mg PO HS 06/12/18 (*)] FLUoxetine [Prozac 20 MG (*)] 20 mg PO DAILY 06/12/18 Orphenadrine Citrate [Norflex 100 100 mg PO HS 06/12/18 mg (*)] celeCOXIB [Celebrex (*)] 200 mg PO DAILY 06/21/18 Diazepam [Valium 5 MG (*)] 5 mg PO Q6HRS PRN #20 tab 06/23/18 Pregabalin [Lyrica 150mg (*)] 150 mg PO BID 07/07/18 ALPRAZolam [Xanax 0.5 MG (*)] 0.5 mg PO DAILY PRN 07/28/18 Aspirin [Aspirin 81mg (*)] 81 mg PO DAILY 07/28/18 Cholecalciferol Vit D3 [Vitamin D3 1,000 units PO DAILY 07/28/18 (*)] Esomeprazole Magnesium 40 mg PO DAILY 07/28/18 Herbals/Supplements -Info Only 1 ea PO DAILY 07/28/18 Levothyroxine [Synthroid 100 mcg 100 mcg PO DAILY06 07/28/18 (*)] Magnesium Oxide [Magnesium Oxide 400 mg PO DAILY 07/28/18 400 mg (*)] Mascotte-3 Fatty Acids [Fish Oil 1000 1,000 mg PO DAILY 07/28/18 mg (*)] Phentermine HCl [Lomaira] 8 mg PO DAILY 07/28/18 traMADol [Ultram 50 mg (*)] 50 mg PO DAILY PRN 07/28/18 Hydrocodone/APAP 5/325 [[place] 1 - 2 tab PO Q4HRS PRN #10 tab 07/30/18 5/325 (*)] Oxycontin 09/21/18 Departure - Departure Disposition: [facility] Inpatient Acute Clinical Impression: Hypoxemia, Hypoventilation, Bilateral atelectasis Condition: Fair Report Scribed for: Marion Jefferson Report Scribed by: Meaghan Castaneda Date of Report: 09/21/18 Time of Report: 20:09 Physician Review and Approval Statement: Portions of this note were transcribed by a medical office scheduler. I personally performed a history, physical exam, medical decision making, and confirmed accuracy of information the transcribed note.
[2018-09-21] MEDS ORDERED: IPRATROPIUM/ALBUTEROL 3 ML DEYVIAL IH ONE (19:36)
[2018-09-21] MEDS ORDERED: NS 1,000 ML IV ONE (19:36)
[2018-09-21 19:50] LABS: PLATELET COUNT 193 10^3/uL (150-400)
[2018-09-21] MEDS ORDERED: IOPAMIDOL (ISOVUE 370) 100 ML BTL IV ONE (20:19)
[2018-09-21] MEDS ORDERED: ALBUTEROL 3 ML DEYVIAL IH ONE (21:33)
[2018-09-21] MEDS ORDERED: PROMETHAZINE HCL 25 MG/ML INJ IVP PRN (21:47)
[2018-09-21] MEDS ORDERED: ONDANSETRON 4 MG/2 ML VIAL IVP PRN (21:47)
[2018-09-21] MEDS ORDERED: ALBUTEROL 3 ML DEYVIAL IH PRN (21:47)
[2018-09-21] MEDS ORDERED: ONDANSETRON DISINTEGRATING 4 MG TAB PO PRN (21:47)
[2018-09-21] MEDS ORDERED: ACETAMINOPHEN 325 MG TAB PO PRN (21:47)
[2018-09-21] MEDS ORDERED: HYDROCODONE/APAP 5/325 TAB PO PRN (21:47)
--- NOTE | 2018-09-21 22:49 | CPEKG ---
Test Reason : OPEN Blood Pressure : / mmHG Vent. Rate : 084 BPM Atrial Rate : 084 BPM P-R Int : 163 ms QRS Dur : 083 ms QT Int : 369 ms P-R-T Axes : 061 004 047 degrees QTc Int : 437 ms Sinus rhythm Low voltage, precordial leads Confirmed by Marion Jefferson ([id number] on 09/21/2018 10:48:32 PM Referred By: Marion Jefferson Confirmed By:Marion Jefferson
[2018-09-21] MEDS: oxyCODONE IR 5 MG TAB PO PRN (23:09)
[2018-09-21] MEDS ORDERED: ALBUTEROL 60 PUFFS/8 GM MDI IH PRN (23:45)
[2018-09-21] MEDS ORDERED: ALPRAZolam 0.25 MG TAB PO PRN (23:45)
--- NOTE | 2018-09-21 23:51 | PDGENHP ---
History and Physical - Chief Complaint hypoxia - History of Present Illness 63 yo F with PMH of DCIS s/p bilateral mastectomy and currently undergoing reconstructive surgery with 2 days ago having her chest expanders removed and replaced and an abdominal fat graft performed. She notes that at the time she was discharged from this surgery she was having a significant amount of pain, but that despite that, she has been getting up and walking as much as she can, at least a few times per day. She notes that after the surgery was performed she was concerned that she would need oxygen at home as she has needed it other times in the post op setting such as after her mastectomy, but was told that medicare would not pay for oxygen. She has been checking her o2 at home and it has been consistently in the 60s or 70s today. She has not had cough, no fever or chills, no swelling or pain in her legs. History Information - Allergies/Home Medication List Allergies/Adverse Reactions: ciprofloxacin Allergy (Unknown, Verified 09/21/18 19:02) Vomiting dexamethasone Allergy (Unknown, Verified 09/21/18 19:02) Itching swelling Nzrzgiy-Bdf-Vvp Reductase Inhibitor [Zunrnrj-Ioc-Emg Reductase Inhibitors] Allergy (Unknown, Verified 09/21/18 19:02) muscle pain weakness azithromycin Allergy (Verified 09/21/18 19:02) Vomiting clindamycin Allergy (Verified 09/21/18 19:02) caused C DIFF x 2 dexamethasone sod phosphate [From Decadron] Allergy (Verified 09/21/18 19:02) itching & swelling Macrolide Antibiotics Allergy (Verified 09/21/18 19:02) Vomiting Quinolones Allergy (Verified 09/21/18 19:02) Vomiting dexamethasone sod phosphate Allergy (Unknown, Uncoded 07/30/18 12:16) itching swelling Home Medications: Albuterol [Proventil Inhaler HFA (*)] 1 - 2 puffs IH Q4H PRN 06/12/18 [Last Taken 09/21/18] Amitriptyline HCl [Elavil 50 mg (*)] 50 mg PO HS 06/12/18 [Last Taken 09/21/18] FLUoxetine [Prozac 20 MG (*)] 20 mg PO DAILY 06/12/18 [Last Taken 09/21/18] ALPRAZolam [Xanax 0.5 MG (*)] 0.5 mg PO DAILY PRN 07/28/18 [Last Taken Unknown] Aspirin [Aspirin 81mg (*)] 81 mg PO DAILY 07/28/18 [Last Taken 09/21/18] Cholecalciferol Vit D3 [Vitamin D3 (*)] 1,000 units PO DAILY 07/28/18 [Last Taken 09/21/18] Esomeprazole Magnesium 40 mg PO DAILY 07/28/18 [Last Taken 09/21/18] Herbals/Supplements -Info Only 1 ea PO DAILY 07/28/18 [Last Taken Unknown] Magnesium Oxide [Magnesium Oxide 400 mg (*)] 400 mg PO DAILY 07/28/18 [Last Taken 09/21/18] [place]-3 Fatty Acids [Fish Oil 1000 mg (*)] 1,000 mg PO DAILY 07/28/18 [Last Taken 09/21/18] Cephalexin [Keflex (*)] 500 mg PO QID 09/21/18 [Last Taken 09/21/18 12:00] Cyclobenzaprine [Flexeril 10 MG (*)] 10 mg PO HS 09/21/18 [Last Taken 09/21/18 14:00] Hydrocodone/APAP 5/325 [Paulina 5/325 (*)] 1 - 2 tab PO Q4HRS PRN 09/21/18 [Last Taken 07/23/18] Ibuprofen [Motrin (*)] 600 mg PO TID 09/21/18 [Last Taken 09/21/18 14:00] Levothyroxine [Synthroid 125 mcg (*)] 125 mcg PO DAILY06 09/21/18 [Last Taken ] Pregabalin [Lyrica 100mg (*)] 100 mg PO BID 09/21/18 [Last Taken 09/21/18 08:00] Sennosides/Docusate Sodium [Senokot-S (OTC)] 2 each PO DAILY 09/21/18 [Last Taken 09/21/18] oxyCODONE IR [Oxycodone Ir (*)] 5 - 10 mg PO Q6HRS PRN 09/21/18 [Last Taken 10/08 15:30] I have personally reviewed and updated: family history, medical history, social history, surgical history - Past Medical History atrial fibrillation (post op), cancer (DCIS), fibromyalgia, GERD, migraines, psychiatric history - Surgical History Reports: mastectomy Additional surgical history: currently in stages of breast reconstruction with expanders and fat graft recently - Family History Positive for: cancer (mother with bladder cancer, sister with ovarian cancer) - Social History Smoking Status: Former smoker Alcohol Use: Rarely Drug Use: None Additional social history: , lives independently Review of Systems Review of Systems: ROS: 10pt was reviewed & negative except for what was stated in HPI & below Physical Exam Physical Exam: Temp Pulse Resp BP Pulse Ox 36.7 C 89 17 113/68 93 09/21/18 19:03 09/21/18 23:25 09/21/18 23:25 09/21/18 23:25 09/21/18 23:25 O2 (L/minute) 2 Constitutional: obese, uncomfortable Eyes: PERRL, anicteric sclera Ears, Nose, Mouth, Throat: moist mucous membranes, hearing normal Cardiovascular: regular rate and rhythym, no murmur, rub, or gallop, No edema Respiratory: no respiratory distress, reduced air movement, inspiratory crackles Gastrointestinal: normoactive bowel sounds, soft, non-tender abdomen Genitourinary: no bladder tenderness Skin: warm, normal color Musculoskeletal: full muscle strength Neurologic: AAOx3 Psychiatric: interacting appropriately, not anxious, not encephalopathic Lab Data & Imaging Review 09/21/18 19:35 09/21/18 19:35 WBC 6.31 10^3/uL (3.80-9.50) 09/21/18 19:35 RBC 4.24 10^6/uL (4.18-5.33) 09/21/18 19:35 Hgb 12.6 g/dL (12.6-16.3) 09/21/18 19:35 Hct 39.0 % (38.0-47.0) 09/21/18 19:35 MCV 92.0 fL (81.5-99.8) 09/21/18 19:35 MCH 29.7 pg (27.9-34.1) 09/21/18 19:35 MCHC 32.3 g/dL (32.4-36.7) L 09/21/18 19:35 RDW 13.2 % (11.5-15.2) 09/21/18 19:35 Plt Count 193 10^3/uL (150-400) 09/21/18 19:35 MPV 10.3 fL (8.7-11.7) 09/21/18 19:35 Neut % (Auto) 78.5 % (39.3-74.2) H 09/21/18 19:35 Lymph % (Auto) 12.5 % (15.0-45.0) L 09/21/18 19:35 [place] % (Auto) 4.1 % (4.5-13.0) L 09/21/18 19:35 Eos % (Auto) 4.4 % (0.6-7.6) 09/21/18 19:35 Baso % (Auto) 0.3 % (0.3-1.7) 09/21/18 19:35 Nucleat RBC Rel Count 0.0 % (0.0-0.2) 09/21/18 19:35 Absolute Neuts (auto) 4.95 10^3/uL (1.70-6.50) 09/21/18 19:35 Absolute Lymphs (auto) 0.79 10^3/uL (1.00-3.00) L 09/21/18 19:35 Absolute Monos (auto) 0.26 10^3/uL (0.30-0.80) L 09/21/18 19:35 Absolute Eos (auto) 0.28 10^3/uL (0.03-0.40) 09/21/18 19:35 Absolute Basos (auto) 0.02 10^3/uL (0.02-0.10) 09/21/18:35 Absolute Nucleated RBC 0.00 10^3/uL (0-0.01) 09/21/18 19:35 Immature Gran % 0.2 % (0.0-1.1) 09/21/18 19: Immature Gran # 0.01 10^3/uL (0.00-0.10) 09/21/18 19: D-Dimer 1.13 ug/mLFEU (0.00-0.50) H 09/21/18 19:35 VBG Lactic Acid 1.8 mmol/L (0.7-2.1) 09/21/18 20:50 Sodium 133 mEq/L (135-145) L 09/21/18 19:35 Potassium 4.2 mEq/L (3.5-5.2) 09/21/18 19:35 Chloride 103 mEq/L (97-110) 09/21/18 19:35 Carbon Dioxide 25 mEq/l (22-31) 09/21/18 19:35 Anion Gap 5 mEq/L (6-14) L 09/21/18 19:35 BUN 14 mg/dL (7-23) 09/21/18 19:35 Creatinine 1.0 mg/dL (0.6-1.0) 09/21/18 19:35 Estimated GFR 56 09/21/18 19:35 Glucose 128 mg/dL (70-100) H 09/21/18 19:35 Calcium 8.9 mg/dL (8.5-10.4) 09/21/18 19:35 Total Bilirubin 0.2 mg/dL (0.1-1.4) 09/21/18 20:50 POC Troponin I 0.00 ng/mL (0.00-0.08) 09/21/18 19:44 NT-Pro-B Natriuret Pep 263 pg/mL (0-125) H 09/21/18 20:50 Visualized and Interpreted Chest x-ray results: Yes Chest X-Ray results: other (hypoventilation and atelectasis) Visualized and Interpreted imaging results: Yes Interpretation: CTA: no PE, atelectasis, diffuse subcutaneous emphysema Visualized and Interpreted EKG results: Yes EKG Interpretation: Positive for: normal sinsus rhythm EKG additional interpertation: low voltage Assessment & Plan Assessment: Bilateral atelectasis (Acute) Hypoventilation (Acute) Hypoxemia (Acute) 63 yo F with PMH of DCIS s/p bilateral mastectomy currently undergoing reconstruction with recent surgery to replace breast expanders and harvest fat graft presenting with acute hypoxic respiratory failure # acute hypoxic respiratory failure: with reports of o2 sats in the 60-70s at home, and presenting with o2 sat of 85% on RA, corrected with low flow o2. Patient noted to be in pain and breathing very shallowly and suspect this is due to atelectasis due both to recent surgery and limited mobility but also with splinting related to pain. IS, pain medications, ambulation and supplemental o2. Likely could dc in am with oxygen. # atelectasis: as above # DCIS: recent bilateral mastectomy and now undergoing reconstruction, will continue her OP f/u per routine, is on keflex ppx in the post operative state # fibromyalgia: may complicate her pain management given chronic underlying pain syndrome, continue stu sinha prozac # migraines: not a current issue, will monitor # observation status Patient new to my care. Old records reviewed and summarized as above. Care plan reviewed with ER doctor and further hx obtained from patients present at bedside.
[2018-09-22] MEDS ORDERED: CYCLOBENZAPRINE 10 MG TAB PO SCH ×2 (01:45→09:00)
[2018-09-22] MEDS: PREGABALIN 100 MG CAP PO SCH ×3 (02:00→22:19)
[2018-09-22] MEDS: AMITRIPTYLINE HCL 25 MG TAB PO SCH ×2 (02:00→22:19)
[2018-09-22 05:45] LABS: PLATELET COUNT 174 10^3/uL (150-400)
[2018-09-22] MEDS: CEPHALEXIN 500 MG CAP PO SCH ×4 (06:25→22:19)
[2018-09-22] MEDS: LEVOTHYROXINE 125 MCG TAB PO SCH (06:25)
[2018-09-22] MEDS: oxyCODONE IR 5 MG TAB PO PRN ×2 (06:25→12:30)
[2018-09-22] MEDS: OMEGA-3 FATTY ACIDS 1,000 MG CAP PO SCH (09:32)
[2018-09-22] MEDS: CHOLECALCIFEROL VIT D3 1,000 UNITS TAB PO SCH (09:33)
[2018-09-22] MEDS: ASPIRIN 81 MG CHEWABLE TAB PO SCH (09:33)
[2018-09-22] MEDS: IBUPROFEN 600 MG TAB PO SCH ×3 (09:33→22:20)
[2018-09-22] MEDS: FLUoxetine 20 MG CAP PO SCH (09:33)
[2018-09-22] MEDS: PANTOPRAZOLE SODIUM 40 MG TAB PO SCH (09:33)
[2018-09-22] MEDS: MAGNESIUM OXIDE 400 MG TAB PO SCH (09:33)
[2018-09-22] MEDS: SENNOSIDES/DOCUSATE SODIUM TAB PO SCH (09:34)
--- NOTE | 2018-09-22 12:09 | PDHOMEO2F ---
Home Oxygen Face to Face Home Orders: I certify that a physician or a nurse practitioner or physician's library media assistant has had a [id number] encounter with this patient on the date of this order due to the diagnosis listed, which relates to the primary reason the patient requires home oxygen. Alternative treatments have been tried, or considered, and deemed ineffective. It is anticipated that supplemental oxygen will result in improvement with treatment. Home oxygen qualifying diagnosis: atelectasis SpO2 on room air (%): 85 Frequency of home oxygen needed: continuous Home oxygen liters per minute: 2 Home oxygen delivery device: nasal cannula Concentrator: Yes E-tanks for mobility and back up: Yes If ordering portable O2, is the patient mobile in the home?: Yes I certify that, based on these findings, the home oxygen is medically necessary for this patient for the following length of time. Length of time home oxygen needed: 3 months
--- NOTE | 2018-09-22 14:36 | HOSPPROG ---
Hospitalist Progress Note Assessment/Plan: # hypoxia - likely multifactorial - check ABG - interstitial edema - lasix IV x 1 - atelectasis - cont IS - may need home O2 # recent breast reconstruction/fat graft - pain management complicated by FMG - stop flexeril, oxy and norco; start valium and tramadol - seems quite deconditioned for return to home today # FMG # migraines Subjective: Complains of chest pain postoperative; very tearful when I am seeing her; complains of new hoarseness; also complains of headache Objective: Vital Signs Temp Pulse Resp BP Pulse Ox 36.6 C 81 17 130/67 H 93 09/22/18 11:13 09/22/18 11:13 09/22/18 11:13 09/22/18 11:13 09/22/18 14:29 Laboratory Results 09/22/18 05:12 09/22/18 05:12 09/21/18 09/22/18 09/23/18 05:59 05:59 05:59 Intake Total 1600 350 Output Total 300 150 Balance 1300 200 chart reviewed CTA reviewed - Physical Exam Constitutional: obese, uncomfortable Cardiovascular: regular rate and rhythym, no murmur, rub, or gallop Respiratory: no respiratory distress, no rales or rhonchi, clear to auscultation Gastrointestinal: normoactive bowel sounds, soft, non-tender abdomen, no palpable masses ICD10 Worksheet Patient Problems: Problems Problem Status Onset Breast cancer Acute Chest pain Acute Acute chest pain Acute Hypoxemia Acute Hypoventilation Acute Bilateral atelectasis Acute
[2018-09-22] MEDS ORDERED: FUROSEMIDE 20 MG/2 ML VIAL IVP ONE (14:37)
[2018-09-22] MEDS ORDERED: CEPACOL LOZENGE PO PRN (14:37)
[2018-09-22] MEDS ORDERED: DIAZEPAM 5 MG TAB PO PRN (14:40)
--- NOTE | 2018-09-22 14:53 | ASMTCMCOM ---
CM Note CM Note Notes: Pt is a 63 year old female who presents post op 3 days ago from mastectomy with hypoxia, hypoventilation, atelectasis. Pt has been tearful on unit. Pt will likely be discharged on home O2. No therapies ordered. CM to follow. Plan: TBD Date Signed: 09/22/2018 02:53 PM Electronically Signed By:ANIBAL Prajapati
--- NOTE | 2018-09-22 15:12 | PDMN ---
Medical Necessity Medical necessity: Pt meets IP criteria as of 09/22/2018 per and [place] MG-PUL ( Pulmonary disease GRG)> los > 2 mn for tx and management of dyspnea and hypoxia that has persisted despite observation care in the setting of breast CA with recent mastectomy; requiring respiratory hygiene, pain management, PT/OT as well as management of chronic conditions including fibromyalgia, DCIS, and migraines.
[2018-09-22] MEDS: traMADol 50 MG TAB PO PRN (18:30)
[2018-09-23] MEDS: CEPHALEXIN 500 MG CAP PO SCH ×2 (06:38→12:51)
[2018-09-23] MEDS: LEVOTHYROXINE 125 MCG TAB PO SCH (06:38)
[2018-09-23] MEDS: IBUPROFEN 600 MG TAB PO SCH (08:46)
[2018-09-23] MEDS: traMADol 50 MG TAB PO PRN (08:46)
[2018-09-23] MEDS: MAGNESIUM OXIDE 400 MG TAB PO SCH (08:46)
[2018-09-23] MEDS: PANTOPRAZOLE SODIUM 40 MG TAB PO SCH (08:46)
[2018-09-23] MEDS: SENNOSIDES/DOCUSATE SODIUM TAB PO SCH (08:46)
[2018-09-23] MEDS: CHOLECALCIFEROL VIT D3 1,000 UNITS TAB PO SCH (08:47)
[2018-09-23] MEDS: ASPIRIN 81 MG CHEWABLE TAB PO SCH (08:47)
[2018-09-23] MEDS: FLUoxetine 20 MG CAP PO SCH (08:47)
[2018-09-23] MEDS: PREGABALIN 100 MG CAP PO SCH (08:47)
[2018-09-23] MEDS: OMEGA-3 FATTY ACIDS 1,000 MG CAP PO SCH (08:47)
[2018-09-23] MEDS: HYDROmorphONE/DILAUDID 1 MG/ML INJ IVP PRN ×2 (10:35→10:42)
[2018-09-23 12:44] VITALS: BP 108/62
--- NOTE | 2018-09-23 13:32 | ASMTLACE ---
RETAE Length of stay for Answers: 1 day current admission Acuity / Level of Answers: Yes Care: Did the patient have an inpatient admission? Comorbidities - select Answers: Any tumor (including all that apply lymphoma or leukemia) Opioid dependence / Chronic pain Other Notes: AFib # of Emergency department Answers: 3-4 visits in the last 6 months Social determinants Answers: Mental health diagnosis (anxiety, depression, pers onality disorders, etc.) Score: 17 Date Signed: 09/23/2018 01:32 PM Electronically Signed By:Marsha Cheatham RN
--- NOTE | 2018-09-23 13:32 | ASMTCMCOM ---
CM Note CM Note Notes: Patient plan of care reviewed in rounds. Hypoxia s/p recent surgery, Had HHC at one point and is now independent. Patient medically cleared to discharge to home with home oxygen. No other needs identified at this time. CM available should needs arise. Plan: Dc home with oxygen and scheduled follow up. Date Signed: 09/23/2018 01:31 PM Electronically Signed By:Marsha Cheatham RN
--- NOTE | 2018-09-23 14:21 | GDS ---
[f rep st] DISCHARGE SUMMARY DIAGNOSES: 1. Hypoxia, certainly there is a chronic component. 2. Ductal carcinoma in situ status post bilateral mastectomy and very recent breast reconstruction w ith fat graft. 3. Fibromyalgia. 4. Migraines. HOSPITAL COURSE: This is a 63-year-old female, with a relatively recent diagnosis of DCIS. She unde rwent a bilateral mastectomy and has had a few reconstructive surgeries. The last was the day prior to her presentation. After surgery, she was noted to be quite hypoxic at home. Thus, she presented to the hospital. Here, CT angiogram ruled out PE. It did show some mild interstitial edema as well as bilateral basilar atelectasis. We strongly encouraged incentive spirometry. I gave her 1 dose of furosemide. She has also had some problems with significant pain postoperatively in the setting of her fibromyalgia. She required some IV Dilaudid for this. On the day of discharge, she is resting c omfortably on room air without desaturations. We discussed at length appropriate medicines for pain on discharge. She will use the oxycodone that was previously prescribed to her. She would like some thing for muscle spasms. I am hesitant to give her Valium in the setting of a narcotic. I will prov nancy her Robaxin instead. She had previously been on Flexeril. I have encouraged her to continue agg ressive incentive spirometry as well as physical therapy and occupational therapy. Notably, her ABG did show a chronic hypercarbic compensated respiratory picture with a pCO2 of 40 and pH of 7.4. DISPOSITION: She is discharged home in stable condition. She will follow up with Dr. Freedman 3 day s after discharge. BILLING: I spent more than 30 minutes on the day of discharge coordinating care. /[id number]/MODL
--- NOTE | 2018-09-23 14:23 | ASMTCMCOM ---
CM Note CM Note Notes: Addendum to previous note, patient is cleared for discharge without oxygen. Pulse ix reveals adequate oxygen levels on room air. Plan: DC to home no needs, Date Signed: 09/23/2018 02:22 PM Electronically Signed By:Marsha Cheatham RN
--- NOTE | 2018-09-25 16:37 | CPEKG ---
Test Reason : OPEN Blood Pressure : / mmHG Vent. Rate : 090 BPM Atrial Rate : 090 BPM P-R Int : 177 ms QRS Dur : 087 ms QT Int : 369 ms P-R-T Axes : 069 055 038 degrees QTc Int : 452 ms Sinus rhythm Low voltage, extremity and precordial leads Confirmed by Estuardo Cano ([id number]) on 09/25/2018 4:37:08 PM Referred By: Vazquez Whatley Confirmed By:Estuardo Cano
== END 2018-09-23 14:38 | disposition home or self-care (01) | DRG 206 ==
LOC: F1N 09-22 01:24 → OBSVTOIN 09-22 14:31
PROVIDERS: ADMIT Internal Medicine; ATTEND Internal Medicine
DX: R09.02 Hypoxemia (principal); J98.11 Atelectasis; E86.9 Volume depletion, unspecified; R60.9 Edema, unspecified; M79.7 Fibromyalgia; G43.909 Migraine, unspecified, not intractable, without status migrainosus; Z85.3 Personal history of malignant neoplasm of breast; Z90.13 Acquired absence of bilateral breasts and nipples; Z80.3 Family history of malignant neoplasm of breast; Z80.41 Family history of malignant neoplasm of ovary; Z80.52 Family history of malignant neoplasm of bladder
CPT/HCPCS: 84484-ER; 96374; 97116-GP; 97162-GP; 97166-GO; 97530-GP; G0378; J1170; J1940; J7613; Q9967

== ENCOUNTER 2018-09-25 14:19 | Emergency (ER) | payer OTHER ==
--- NOTE | 2018-09-25 14:28 | EDPHY ---
H & P Stated Complaint: breast reconstruction 09/20 dc from hosp sunday increasing pain/ sob Source: Patient Exam Limitations: No limitations - Personal History Current Tetanus Diphtheria and Acellular Pertussis (TDAP): Yes Tetanus Vaccine Date: < 10 years - Medical/Surgical History Hx Asthma: No Hx Chronic Respiratory Disease: No Hx Diabetes: No Hx Cardiac Disease: No Hx Renal Disease: No Hx Cirrhosis: No Hx Alcoholism: No Hx HIV/AIDS: No Hx Splenectomy or Spleen Trauma: No Other PMH: Fibromyalgia, hypothyroid, migraines, breast cancer with lumpectomy, bilateral mastectomy, and reconstruction - Social History Smoking Status: Former smoker Time Seen by Provider: 09/25/18 14:27 HPI/ROS: HPI: This is a 63-year-old female who presents with Chief Complaint: Uncontrolled pain, dyspnea Location: Chest Quality: Pain, dyspnea Duration: Several days Signs and Symptoms: no shortness of breath at rest, no shortness of breath on exertion, no cough, no chest pain, no palpitations, no lower extremity edema, no wheezing, no orthopnea, no paroxysmal nocturnal dyspnea, no fever, no injury/ trauma, no hemoptysis, no carpal pedal spasms Timing: Acute on chronic Severity: 05/29 Context: Patient has a history of hypoxia, chronic component, ductal carcinoma in-situ status post bilateral mastectomy in very recent breast reconstruction with fat graft, fibromyalgia and migraines presents to the emergency room with complaints of uncontrolled pain at the sites of breast reconstruction and graft areas. Reports that she was discharged approximately 2 days ago from the emergency room with oxycodone but this is not controlling her pain. She reports that they are very limited muscle relaxer she is able to take due to interaction with other medications. She has not been able to fill the Robaxin given at discharge. Due to ABG showing chronic hypercarbic compensated respiratory failure order for home oxygen continues 2 L needing cannula written but at discharge patient's O2 sats were 92-94% on room air and therefore home oxygen was not ordered. at bedside reports that she has been crying for the last several days and complains that she cannot breathe. Former smoker. Chart review shows that while in the hospital patient had a CTA that showed no pulmonary embolism on 09/21/2018. The CTA did show some mild interstitial edema as well as bilateral basilar atelectasis. Patient also had relatively normal BNP level and no devora signs of congestive heart failure. Patient was discharged with incentive spirometry. Patient reports that she has been using every 1 hr and able to "get up to a 1000 mL." Patient reports that she feels she is unable to take a deep breath. Denies fever, wheezing, cough, lower extremity edema. Modifying Factors: See above Comment: ROS: A comprehensive 10 system review of systems is otherwise negative aside from elements mentioned in the history of present illness. MEDICAL/SURGICAL/SOCIAL HISTORY: Medical history: Fibromyalgia, hypothyroid, migraines, breast cancer with Surgical history: lumpectomy, bilateral mastectomy, and reconstruction Social history: Former smoker. . Retired. CONSTITUTIONAL: Moderate distress, overweight elderly female, at bedside, awake and alert HEENT: Atraumatic and normocephalic, PERRL, EOMI. Nares patent; no rhinorrhea; no nasal mucosal edema. Tympanic membranes clear. Oropharynx clear, no exudate and moist pink mucosa. Airway patent. No lymphadenopathy. No meningismus. Cardiovascular: Normal S1/S2, regular rate, regular rhythm, without murmur rub or gallop. PULMONARY/CHEST: Symmetrical and nontender. Clear to auscultation bilaterally. Forced upper airway sound transmission. Good air movement. No accessory muscle usage. BREAST: No erythema, warmth, discharge ABDOMEN: Soft, nondistended, nontender, no rebound, no guarding, no peritoneal signs, no masses or organomegaly. No CVAT. EXTREMITIES: 2/2 pulses, strength 5/5, no deformities, no clubbing, no cyanosis or edema. NEUROLOGICAL: no focal neuro deficits. GCS 15. SKIN: Warm and dry, no erythema. no rash. Good capillary refill. ([place]) Constitutional: Initial Vital Signs Temperature (C) 36.4 C 09/25/18 14:21 Heart Rate 85 09/25/18 14:21 Respiratory Rate 18 09/25/18 14:21 Blood Pressure 175/100 H 09/25/18 14:21 O2 Sat (%) 93 09/25/18 14:21 O2 Delivery Mode Room Air Allergies/Adverse Reactions: ciprofloxacin Allergy (Unknown, Verified 09/25/18 14:20) Vomiting dexamethasone Allergy (Unknown, Verified 09/25/18 14:20) Itching swelling Cdvloct-Mzw-Vng Reductase Inhibitor [Srkuomo-Eqc-Gxl Reductase Inhibitors] Allergy (Unknown, Verified 09/25/18 14:20) muscle pain weakness azithromycin Allergy (Verified 09/25/18 14:20) Vomiting clindamycin Allergy (Verified 09/25/18 14:20) caused C DIFF x 2 dexamethasone sod phosphate [From Decadron] Allergy (Verified 09/25/18 14:20) itching & swelling Macrolide Antibiotics Allergy (Verified 09/25/18 14:20) Vomiting Quinolones Allergy (Verified 09/25/18 14:20) Vomiting dexamethasone sod phosphate Allergy (Unknown, Uncoded 07/30/18 12:16) itching swelling Home Medications: Medication Instructions Recorded Albuterol [Proventil Inhaler HFA 1 - 2 puffs IH Q4H PRN 06/12/18 (*)] Amitriptyline HCl [Elavil 50 mg 50 mg PO HS 06/12/18 (*)] FLUoxetine [Prozac 20 MG (*)] 20 mg PO DAILY 06/12/18 ALPRAZolam [Xanax 0.5 MG (*)] 0.5 mg PO DAILY PRN 07/28/18 Aspirin [Aspirin 81mg (*)] 81 mg PO DAILY 07/28/18 Cholecalciferol Vit D3 [Vitamin D3 1,000 units PO DAILY 07/28/18 (*)] Esomeprazole Magnesium 40 mg PO DAILY 07/28/18 Herbals/Supplements -Info Only 1 ea PO DAILY 07/28/18 Magnesium Oxide [Magnesium Oxide 400 mg PO DAILY 07/28/18 400 mg (*)] [place]-3 Fatty Acids [Fish Oil 1000 1,000 mg PO DAILY 07/28/18 mg (*)] Cephalexin [Keflex (*)] 500 mg PO QID 09/21/18 Ibuprofen [Motrin (*)] 600 mg PO TID 09/21/18 Levothyroxine [Synthroid 125 mcg 125 mcg PO DAILY06 09/21/18 (*)] Pregabalin [Lyrica 100mg (*)] 100 mg PO BID 09/21/18 Sennosides/Docusate Sodium 2 each PO DAILY 09/21/18 [Senokot-S] oxyCODONE IR [Oxycodone Ir (*)] 5 - 10 mg PO Q6HRS PRN 09/21/18 Methocarbamol [Robaxin 750 mg (*)] 750 mg PO TID PRN #30 tab 09/23/18 Albuterol Sulfate [ALBUTEROL 1.25 mg IH Q6 PRN #1 box 09/25/18 SULFATE 1.25 MG/3 ML] Medical Decision Making - Diagnostics Imaging Results: Imaging Impressions Chest X-Ray 09/25/18 14:38 Impression: Bibasilar subsegmental atelectasis or scarring. No pneumonia. ED Course/Re-evaluation: Vital signs reviewed upon arrival and show O2 sats 93-95% on room air. Placed on ict project manager. Chest x-ray ordered along with DuoNeb, oxycodone 5 mg and Robaxin 1500: Patient reports improved aeration status post nebulizer. client account manager consult. reports that patient is unable to go up and down stairs and they live in a 2 story home. Will need to decide home health versus half-way facility. 1506: Notified by RN that: Patient wants albuterol nebs Rx for home nebulizer machine 1525: Chest x-ray my read shows Bibasilar subsegmental atelectasis or scarring. No pneumonia. No signs of airway compromise/strep pharyngitis/respiratory distress Case management consult appreciated. Patient has an appointment with Plastic surgery tomorrow and will give referral to ENT. This patient was seen under the supervision of my secondary supervising physician. I evaluated care for this patient with attending. Discussed this patient with Dr. Sierra. (Mag Castano) I did not see this patient while she was in the emergency department. However her care was discussed with the PA while the patient was in the department. I agree with treatment plan and management (Akshat Sierra) Differential Diagnosis: Shortness of breath including but not limited to pulmonary infectious process, COPD, asthma, pulmonary embolus and congestive heart failure. (Mag Castano) - Data Points Medications Given: Discontinued Medications Albuterol/Ipratropium (Duoneb) 3 ml IH EDNOW ONE Stop: 09/25/18 14:39 Last Admin: 09/25/18 14:43 Dose: 3 ml Methocarbamol (Robaxin) 750 mg PO EDNOW ONE Stop: 09/25/18 14:39 Last Admin: 09/25/18 14:43 Dose: 750 mg Oxycodone HCl (Oxycodone Ir) 5 mg PO EDNOW ONE Stop: 09/25/18 14:39 Last Admin: 09/25/18 14:43 Dose: 5 mg Departure - Departure Disposition: Home, Routine, Self-Care Clinical Impression: Chronic hypercapnic respiratory failure, Chronic post-operative pain, Voice hoarseness Condition: Good Instructions: Pain Management (ED), Indirect Laryngoscopy (DC), Dyspnea (ED) Additional Instructions: Please keep follow-up appointment with Plastic surgery tomorrow. Take oxycodone every 4-6 hours as needed for severe/breakthrough pain. Take Robaxin every 8 hr as needed for muscle spasms. Voice hoarseness persist greater than 1 week please follow-up with ear nose and throat. Use albuterol nebulizer every 4-6 hours as needed for shortness of breath, dyspnea. Referrals: [facility]AYE [Other] - As per Instructions Shree Padilla MD [Medical Doctor] - As per Instructions Claribel Rodriguez MD [Medical Doctor] - As per Instructions Prescriptions: Albuterol Sulfate [ALBUTEROL SULFATE 1.25 MG/3 ML] 1.25 mg IH Q6 PRN #1 box PRN Reason: Short Of Breath/Dyspnea
[2018-09-25] MEDS ORDERED: IPRATROPIUM/ALBUTEROL 3 ML DEYVIAL IH ONE (14:38)
[2018-09-25] MEDS ORDERED: METHOCARBAMOL 750 MG TAB PO ONE (14:38)
[2018-09-25] MEDS ORDERED: oxyCODONE IR 5 MG TAB PO ONE (14:38)
[2018-09-25 16:10] VITALS: BP 134/89
== END 2018-09-25 16:09 | disposition home or self-care (01) ==
DX: J96.12 Chronic respiratory failure with hypercapnia (principal); G89.28 Other chronic postprocedural pain; R49.0 Dysphonia; M79.7 Fibromyalgia; G43.909 Migraine, unspecified, not intractable, without status migrainosus; E03.9 Hypothyroidism, unspecified; Z85.3 Personal history of malignant neoplasm of breast; Z90.13 Acquired absence of bilateral breasts and nipples; Z87.891 Personal history of nicotine dependence

== ENCOUNTER 2018-10-17 09:51 | Observation (INO) | payer OTHER ==
[2018-10-17 10:31] LABS: PLATELET COUNT 242 10^3/uL (150-400)
--- NOTE | 2018-10-17 11:11 | EDPHY ---
H & P Stated Complaint: cp Time Seen by Provider: 10/17/18 10:24 HPI/ROS: CHIEF COMPLAINT: Chest pain HISTORY OF PRESENT ILLNESS: 63-year-old female with breast cancer status post bilateral mastectomy presents with chest pain. Onset of severe sharp and stabbing chest pain just prior to arrival. The pain is 10/10 and associated with shortness of breath. Has been seen in this emergency department 3 times for similar chest pain. CT pulmonary angiogram x3 unremarkable. No alleviating /aggravating factors. REVIEW OF SYSTEMS: complete 10 point ROS reviewed and is negative except for the noted elements in the HPI Source: Patient - Personal History Current Tetanus/Diphtheria Vaccine: Yes Current Tetanus Diphtheria and Acellular Pertussis (TDAP): Yes Tetanus Vaccine Date: < 10 years - Medical/Surgical History Hx Asthma: No Hx Chronic Respiratory Disease: No Hx Diabetes: No Hx Cardiac Disease: No Hx Renal Disease: No Hx Cirrhosis: No Hx Alcoholism: No Hx HIV/AIDS: No Hx Splenectomy or Spleen Trauma: No Other PMH: Fibromyalgia, hypothyroid, migraines, breast cancer with lumpectomy, bilateral mastectomy, and reconstruction - Social History Smoking Status: Former smoker Alcohol Use: Sober Drug Use: None - Physical Exam Exam: General Appearance: Alert, pleasant, seen after IV morphine given Eyes: Pupils equal and round, no conjunctival pallor or injection ENT, Mouth: Mucous membranes moist Neck: Normal inspection Respiratory: Lungs are clear to auscultation Cardiovascular: Regular rate and rhythm Gastrointestinal: Abdomen is soft and nontender Neurological: A&O, nonfocal, normal gait Skin: Warm and dry, no rash Extremities: Nontender, no pedal edema Psychiatric: Mood and affect normal Constitutional: Initial Vital Signs Temperature (C) 36.5 C 10/17/18 09:57 Heart Rate 93 10/17/18 09:57 Respiratory Rate 24 H 10/17/18 09:57 Blood Pressure 156/86 H 10/17/18 09:57 O2 Sat (%) 94 10/17/18 09:57 O2 Delivery Mode Nasal Cannula O2 (L/minute) 2 Allergies/Adverse Reactions: ciprofloxacin Allergy (Unknown, Verified 10/17/18 09:57) Vomiting dexamethasone Allergy (Unknown, Verified 10/17/18 09:57) Itching swelling Msoznyv-Swh-Sot Reductase Inhibitor [Nzvhqey-Ikj-Pih Reductase Inhibitors] Allergy (Unknown, Verified 10/17/18 09:57) muscle pain weakness azithromycin Allergy (Verified 10/17/18 09:57) Vomiting clindamycin Allergy (Verified 10/17/18 09:57) caused C DIFF x 2 dexamethasone sod phosphate [From Decadron] Allergy (Verified 10/17/18 09:57) itching & swelling Macrolide Antibiotics Allergy (Verified 10/17/18 09:57) Vomiting Quinolones Allergy (Verified 10/17/18 09:57) Vomiting dexamethasone sod phosphate Allergy (Unknown, Uncoded 10/17/18 09:57) itching swelling Home Medications: Medication Instructions Recorded Amitriptyline HCl [Elavil 50 mg 50 mg PO HS 06/12/18 (*)] FLUoxetine [Prozac 20 MG (*)] 20 mg PO DAILY 06/12/18 ALPRAZolam [Xanax 0.5 MG (*)] 0.5 mg PO DAILY PRN 07/28/18 Aspirin [Aspirin 81mg (*)] 81 mg PO DAILY 07/28/18 Cholecalciferol Vit D3 [Vitamin D3 1,000 units PO DAILY 07/28/18 (*)] Esomeprazole Magnesium 40 mg PO DAILY 07/28/18 Herbals/Supplements -Info Only 1 ea PO DAILY 07/28/18 Magnesium Oxide [Magnesium Oxide 400 mg PO DAILY 07/28/18 400 mg (*)] [place]-3 Fatty Acids [Fish Oil 1000 1,000 mg PO DAILY 07/28/18 mg (*)] Levothyroxine [Synthroid 125 mcg 125 mcg PO DAILY06 09/21/18 (*)] Pregabalin [Lyrica 100mg (*)] 100 mg PO BID 09/21/18 Sennosides/Docusate Sodium 2 each PO DAILY 09/21/18 [Senokot-S] oxyCODONE IR [Oxycodone Ir (*)] 5 - 10 mg PO Q6HRS PRN 09/21/18 Cyclobenzaprine [Flexeril 10 MG 10 mg PO HS 10/17/18 (*)] Guar Gum [Benefiber/Nutrisource 1 each PO DAILY 10/17/18 Fiber (*)] celeCOXIB [Celebrex (*)] 200 mg PO DAILY 10/17/18 Medical Decision Making - Diagnostics EKG Interpretation: EKG interpreted by me reveals sinus rhythm, rate 87, low voltage in the precordial leads, poor R-wave progression. Interpretation: Abnormal EKG Imaging Results: Chest X-Ray 10/17/18 10:12 Impression: Nothing acute identified. Imaging: I viewed and interpreted images myself ED Course/Re-evaluation: This patient presents with recurrent chest pain. Presentation fairly dramatic and concerning, with severe pain and uncomfortable appearance. IV narcotics for pain relief, with substantial relief. Stat EKG reveals no evidence of ischemia or dysrhythmia and chest x-ray is unremarkable. Initial troponin is normal. D- dimer is elevated, similar to prior d-dimers. In review of her past medical record, she has been seen in this emergency department 3 times for similar chest pain and has had 3 CT pulmonary angiograms. Unlikely that this similar episode of chest pain is secondary to pulmonary embolism. For this reason, CTA not obtained. Elevated d-dimer likely secondary to CA. Recent admission for similar sx, without identified cause of cp. d/w pt and other etiologies of c/p, they remain quite concerned and uncomfortable with d/c home. At this point, cp has resolved. Will admit for further evaluation. The hospitalist service was consulted for admission. Differential Diagnosis: Differential diagnosis includes though it is not limited to pneumonia, pneumothorax, pulmonary embolism, aortic dissection, pericarditis, acute coronary syndrome. - Data Points Laboratory Results: Laboratory Results 10/17/18 10:00 10/17/18 10:24 Medications Given: Discontinued Medications Acetaminophen (Tylenol) 650 mg PO Q4HRS PRN PRN Reason: Pain, Mild/Fever, Can Take PO Stop: 04/15/19 15:18 Last Admin: 10/18/18 13:51 Dose: 650 mg Alprazolam (Xanax) 0.5 mg PO DAILY PRN PRN Reason: PANIC ATTACKS Stop: 04/15/19 15:20 Last Admin: 10/18/18 16:16 Dose: 0.5 mg Amitriptyline HCl (Elavil) 50 mg PO HS [facility] Stop: 04/15/19 20:59 Last Admin: 10/17/18 21:09 Dose: 50 mg Aspirin (Aspirin) 81 mg PO DAILY [facility] Stop: 04/16/19 08:59 Last Admin: 10/18/18 09:18 Dose: 81 mg Celecoxib (Celebrex) 200 mg PO DAILY [facility] Stop: 04/16/19 08:59 Last Admin: 10/18/18 09:18 Dose: 200 mg Cholecalciferol (Vitamin D) 1,000 units PO DAILY [facility] Stop: 04/16/19 08:59 Last Admin: 10/18/18 09:17 Dose: 1,000 units Cyclobenzaprine HCl (Flexeril) 10 mg PO HS [facility] Stop: 04/15/19 20:59 Last Admin: 10/17/18 21:09 Dose: 10 mg Fluoxetine HCl (Prozac) 20 mg PO DAILY [facility] Stop: 04/16/19 08:59 Last Admin: 10/18/18 09:18 Dose: 20 mg Guar Gum (Benefiber/Nutrisource Fiber) 1 each PO DAILY [facility] Stop: 04/16/19 08:59 Last Admin: 10/18/18 09:22 Dose: 1 each [facility]othy[facility]ine [facility] Stop: 04/16/19 05:59 Last Admin: 10/18/18 06:01 Dose: 125 mcg Magnesium Oxide (Magnesium Oxide) 400 mg PO DAILY [facility] Stop: 04/16/19 08:59 Last Admin: 10/18/18 09:18 Dose: 400 mg Morphine Sulfate (Morphine) 4 mg IVP [facility] Stop: 10/17/18 10:32 Last Admin: 10/17/18 10:34 Dose: 4 mg Morphine Sulfate (Morphine) 2 mg IVP ONCE ONE Stop: 10/17/18 20:33 Last Admin: 10/17/18 20:45 Dose: 2 mg Morphine Sulfate (Morphine) 2 mg IVP ONCE ONE Stop: 10/17/18 21:04 Last Admin: 10/17/18 21:08 Dose: 2 mg Xttdn-1-Hppm Ethyl Esters (Fish Oil) 1,000 mg PO DAILY [facility] Stop: 04/16/19 08:59 Last Admin: 10/18/18 09:18 Dose: 1,000 mg Oxycodone HCl (Oxycodone Ir) 5 - 10 mg PO Q6HRS PRN PRN Reason: Pain, Severe Stop: 10/27/18 15:20 Last Admin: 10/17/18 20:32 Dose: 10 mg Pantoprazole Sodium (Protonix) 40 mg PO DAILY [facility] Stop: 04/16/19 08:59 Last Admin: 10/18/18 09:18 Dose: 40 mg Pregabalin (Lyrica) 100 mg PO BID [facility] Stop: 04/15/19 20:59 Last Admin: 10/18/18 09:18 Dose: 100 mg Senna/Docusate Sodium (Senokot-S) 2 tab PO DAILY [facility] Stop: 04/16/19 08:59 Last Admin: 10/18/18 09:17 Dose: 2 tab Simethicone (Mylicon) 80 mg PO [facility] Stop: 04/15/19 18:59 Last Admin: 10/18/18 13:49 Dose: 80 mg Point of Care Test Results: Chemistry 10/17/18 10:12 POC Troponin I 0.00 ng/mL ng/mL (0.00-0.08) Departure - Departure Disposition: [facility] Inpatient Acute Clinical Impression: Chest pain Qualifiers: Chest pain type: precordial pain Qualified Code(s): R07.2 - Precordial pain Condition: Fair
[2018-10-17] MEDS ORDERED: ONDANSETRON DISINTEGRATING 4 MG TAB PO PRN (15:19)
[2018-10-17] MEDS ORDERED: ACETAMINOPHEN 325 MG TAB PO PRN (15:19)
[2018-10-17] MEDS ORDERED: ONDANSETRON 4 MG/2 ML VIAL IVP PRN (15:19)
[2018-10-17] MEDS ORDERED: IBUPROFEN 200 MG TAB PO PRN (15:19)
[2018-10-17] MEDS ORDERED: oxyCODONE IR 5 MG TAB PO PRN (15:21)
[2018-10-17] MEDS ORDERED: ALPRAZolam 0.5 MG TAB PO PRN (15:21)
--- NOTE | 2018-10-17 15:57 | GHP ---
[f rep st] HISTORY AND PHYSICAL DATE OF ADMISSION: 10/17/2018 Ms. 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 She has had a number of admissions in that interval for chest pain and they have included a negative stress t est, a negative nuclear medicine stress test, plus 3 CT PEs that have all been negative. She continu es to have chest pain. She described it as her central chest, coming in waves, occasionally associat ed with shortness of breath, but not associated with diaphoresis. It does not radiate. She has occa sional lower extremity edema, but no PND or orthopnea. She does not have a personal or family histor y of coronary disease. She has hyperlipidemia, but no hypertension, diabetes, or smoking. She has n ot had fever, chills, cough, or sputum. There is no relationship with food. She does not have a sensation of food sticking. REVIEW OF SYSTEMS: Complete 10-point review of systems conducted negative except as noted in the HPI . PAST MEDICAL HISTORY: 1. DCIS with ongoing breast reconstruction surgery. 2. Fibromyalgia. 3. Postop atrial fibrillation. 4. GERD. 5. Migraines. ALLERGIES: Ciprofloxacin and dexamethasone. HOME MEDICATIONS: Alprazolam, amitriptyline, aspirin, celecoxib, vitamin D3, cyclobenzaprine, esomep razole, fluoxetine, , levothyroxine, mag oxide, fish oil, oxycodone, pregabalin, senna. SOCIAL HISTORY: No tobacco. No alcohol. Retired pharmacy ancillary. Lives in [place]. FAMILY HISTORY: Notable for some cancers. PHYSICAL EXAM: VITAL SIGNS: Temperature 36.5, blood pressure 156/86, pulse 93, breathing 24 times a minute, 94% on room air. GENERAL: No acute distress. HEENT: Sclerae anicteric. Oropharynx clear . Mucous membranes are moist. NECK: Supple without lymphadenopathy or JVD. LUNGS: Clear to auscu ltation bilaterally. HEART: S1, S2 without murmurs. Chest pain is not reproducible with physical e xam. ABDOMEN: Soft, nontender, nondistended. LOWER EXTREMITIES: No edema. Calves are nontender. SKIN: Without rash. LABORATORY DATA: CBC normal. D-dimer is elevated, has been persistently elevated since June. S odium 136, potassium 4.7, chloride 105, bicarb 23, BUN 15, creatinine 0.8. Mvych-uk-frnq troponin is 0.00. Chest x-ray has no acute cardiopulmonary disease. EKG interpreted by me shows sinus at 87 with isha l axis and intervals. No ST or T-wave changes and normal EKG. Compared with prior EKGs, it is uncha nged. I discussed the case with Dr. Manuela Castellanos. ASSESSMENT/PLAN: A 63-year-old female with chest pain. 1. Chest pain. I think pulmonary embolus and acute coronary syndrome have been effectively ruled ou t. We will no longer follow for these. It sounds most like esophageal spasm. I have written her fo r samanthaethiconcorie and Leveduardo. We will follow. 2. Fibromyalgia. Continue her medicines. 3. Chronic pain. We will continue her pain medication. 4. Ductal carcinoma in situ, status post mastectomy in the presence of surgery. 5. Disposition: Observation status. /[id number]/MODL
[2018-10-17] MEDS ORDERED: SIMETHICONE 80 MG TAB CHEW PO PRN (16:00)
[2018-10-17] MEDS: SIMETHICONE 80 MG TAB CHEW PO SCH ×2 (18:21→20:46)
[2018-10-17] MEDS ORDERED: AMITRIPTYLINE HCL 50 MG TAB PO SCH (21:00)
[2018-10-17] MEDS ORDERED: CYCLOBENZAPRINE 10 MG TAB PO SCH (21:00)
[2018-10-17] MEDS: PREGABALIN 100 MG CAP PO SCH (21:09)
[2018-10-17] MEDS: ALPRAZolam 0.25 MG TAB PO PRN (21:23)
[2018-10-18] MEDS ORDERED: LEVOTHYROXINE 125 MCG TAB PO SCH (06:00)
[2018-10-18] MEDS ORDERED: MAGNESIUM OXIDE 400 MG TAB PO SCH (09:00)
[2018-10-18] MEDS ORDERED: CHOLECALCIFEROL VIT D3 1,000 UNITS TAB PO SCH (09:00)
[2018-10-18] MEDS ORDERED: Herbals/Supplements -Info Only PO SCH (09:00)
[2018-10-18] MEDS ORDERED: PANTOPRAZOLE SODIUM 40 MG TAB PO SCH (09:00)
[2018-10-18] MEDS ORDERED: ASPIRIN 81 MG CHEWABLE TAB PO SCH (09:00)
[2018-10-18] MEDS ORDERED: FLUoxetine 20 MG CAP PO SCH (09:00)
[2018-10-18] MEDS ORDERED: BENEFIBER/NUTRISOURCE FIBER PKT 1 EACH PO SCH (09:00)
[2018-10-18] MEDS ORDERED: SENNOSIDES/DOCUSATE SODIUM TAB PO SCH (09:00)
[2018-10-18] MEDS ORDERED: OMEGA-3 FATTY ACIDS 1,000 MG CAP PO SCH (09:00)
[2018-10-18] MEDS: PREGABALIN 100 MG CAP PO SCH (09:18)
[2018-10-18] MEDS: SIMETHICONE 80 MG TAB CHEW PO SCH ×2 (09:19→13:49)
--- NOTE | 2018-10-18 14:56 | ASMTCMCOM ---
CM Note CM Note Notes: 10/18/2018 Case Management Note Met w/pt and to discuss d/c needs. Pt admitted for chest pain. Previous discharges have been with [facility]. Contacted [facility], pt no longer requires home care, services were discontinued in end of July 2018. Pt in agreement and will not be home bound. Offered pt resources for counseling support. Pt declined. There are no therapy evals ordered at this time. Case Management d/c poc: independent with follow up as directed. Case Management available if needs change. Date Signed: 10/18/2018 02:56 PM Electronically Signed By:Cleo Wahl RN
[2018-10-18 15:12] VITALS: BP 110/70
[2018-10-18] MEDS: ALPRAZolam 0.25 MG TAB PO PRN (16:16)
--- NOTE | 2018-10-18 17:02 | ASDISCHSUM ---
Discharge Information Plan Status:Home with No Needs Medically Cleared to Leave:10/17/2018 Discharge Date:10/17/2018 CM D/C Disposition:Home, Routine, Self-Care ADT D/C Disposition:Home, Routine, Self-Care Projected Discharge Date:10/17/2018 Transportation at D/C:Family Discharge Delay Reason: Follow-Up Date:10/17/2018 Discharge Slot: Final Diagnosis: Placement Information Patient Contact Information Contact Name:JAYDON Relationship: Address:[address] City:[place] [facility] Phone: [facility]/Zip Code:[place] [address] Email: Financial Information Financial Class:Medicare Primary Plan Desc:MEDICARE OUTPATIENT Primary Plan Number:[id number] Secondary Plan Desc:EARLE Secondary Plan Number:[id number] Assessment Information LACE LACE Length of stay for Answers: 1 day current admission Acuity / Level of Answers: No Care: Did the patient have an inpatient admission? Comorbidities - select Answers: Any tumor (including all that apply lymphoma or leukemia) # of Emergency department Answers: 3-4 visits in the last 6 months Score: 6 Date Signed: 10/18/2018 05:01 PM Electronically Signed By:Cleo Wahl RN [facility] CM Progress Note CM Note CM Note Notes: 10/18/2018 Case Management Note Met w/pt and to discuss d/c needs. Pt admitted for chest pain. Previous discharges have been with [facility]. Contacted [facility], pt no longer requires home care, services were discontinued in end of July 2018. Pt in agreement and will not be home bound. Offered pt resources for counseling support. Pt declined. There are no therapy evals ordered at this time. Case Management d/c poc: independent with follow up as directed. Case Management available if needs change. Date Signed: 10/18/2018 02:56 PM Electronically Signed By:Cleo Wahl RN Intervention Information Intervention Type:*JOY-Signed Date of Service:10/18/2018 10:18 AM Patient Type:Observation Staff Member:Joan Rutherford Hours: Discipline: Severity: Comment:
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
--- NOTE | 2018-10-21 14:45 | CPEKG ---
Test Reason : OPEN Blood Pressure : / mmHG Vent. Rate : 087 BPM Atrial Rate : 088 BPM P-R Int : 162 ms QRS Dur : 088 ms QT Int : 376 ms P-R-T Axes : 062 002 039 degrees QTc Int : 453 ms Sinus rhythm Low voltage, precordial leads Consider anterior infarct Confirmed by Apple Castellanos ([id number]) on 10/21/2018 2:45:15 PM Referred By: PHYSICIAN ED Confirmed By:Apple Castellanos
--- NOTE | 2018-10-23 11:19 | CPEKG ---
Test Reason : OPEN Blood Pressure : / mmHG Vent. Rate : 089 BPM Atrial Rate : 089 BPM P-R Int : 155 ms QRS Dur : 085 ms QT Int : 367 ms P-R-T Axes : 068 038 063 degrees QTc Int : 447 ms Sinus rhythm Low voltage, precordial leads Consider anterior infarct Confirmed by Estuardo Rock ([id number]) on 10/23/2018 11:19:34 AM Referred By: Gio Gongora Confirmed By:Estuardo Rock
== END 2018-10-18 17:27 | disposition home or self-care (01) ==
LOC: F2W 13:35
PROVIDERS: ADMIT Internal Medicine; ATTEND Student in an Organized Health Care Education/Training Program
DX: R07.9 Chest pain, unspecified (principal); M79.7 Fibromyalgia; G89.29 Other chronic pain; E78.5 Hyperlipidemia, unspecified; Z85.3 Personal history of malignant neoplasm of breast; Z90.13 Acquired absence of bilateral breasts and nipples; Z62.810 Personal history of physical and sexual abuse in childhood; Z87.891 Personal history of nicotine dependence
CPT/HCPCS: 71046; 93005; 96374; 96376; 99285; G0378; J2270; 84484-ER

== ENCOUNTER 2019-02-12 15:12 | Emergency (ER) | payer OTHER | END 2019-02-12 17:49 | disposition home or self-care (01) ==